=== PATIENT | female | born 1960 | race Caucasian/White ===

== ENCOUNTER 2019-09-03 21:43 | Emergency (ER) | payer BC, SELFPAY ==
--- NOTE | ~2019-09-03 | XR_ITS ---
EXAMINATION: XR hand RT min 3V INDICATION: Right hand pain TECHNIQUE: Three views of the right hand are obtained. COMPARISON: None available FINDINGS: There is no fracture, dislocation, or subluxation. Bone alignment is normal. There is swell ing and gas in the dorsal soft tissues of the hand overlying the metacarpals. IMPRESSION: 1. Swelling and gas in the dorsal soft tissues overlying the metacarpals. No acute osseous abnormalit y. Reviewed, dictated and finalized at location A. IMPRESSION: 1. Swelling and gas in the dorsal soft tissues overlying the metacarpals. No ac cheesh-na osseous abnormality.
[2019-09-03 21:45] VITALS: BP 143/59; PULSE 110; RESP 16; TEMP 37.5; O2SAT 96
--- NOTE | 2019-09-03 21:51 | ED.WOUNDLAC ---
HPI - Wound/Laceration General Chief Complaint: Wound/Laceration Stated Complaint: dog bite Time Seen by Provider: 09/03/19 21:51 Source: patient and RN notes reviewed Mode of arrival: ambulatory Limitations: no limitations History of Present Illness HPI narrative: A 59 y/o female presents to the ED after being bit on both her hands by her dog at roughly 12 PM this afternoon. She states that she was trying to help her dog up when it bit her multiple times on her MAXIMO hands. She reports rt wrist pain, rt hand pain, and rt hand swelling. She notes that she is unsure of when her last tetanus shot was. She denies any HI, LOC, numbness, or tingling. Dog has been vaccinated and is a domestic dog. Onset (ago): hour(s) (10) Extremity Location: Bilateral: hand Place: home Patient tetanus UTD: No Context: other (dog bit her) Associated symptoms: pain (rt hand and rt wrist) and other (rt hand swelling) Related Data Allergies Allergy/AdvReac Type Severity Reaction Status Date / Time codeine Allergy Unknown NERVOUS, Verified 09/03/19 21:49 ITCHY Penicillins Allergy Unknown UNKNOWN Verified 09/03/19 21:49 Review of Systems Review of Systems: Narrative: MUSCULOSKELETAL: Reports rt wrist pain, rt hand pain, and rt hand swelling.. NEUROLOGIC: Denies HI, LOC, numbness, or tingling. All systems reviewed & are unremarkable except as noted in HPI and below PMFSH Past Medical History Medical History (Updated 09/03/19 @ 22:06 by Tristan Castaneda) Anxiety Asthma COPD (chronic obstructive pulmonary disease) Depression GERD (gastroesophageal reflux disease) H/O: HTN (hypertension) PTSD (post-traumatic stress disorder) Surgical History Surgical History (Updated 09/03/19 @ 22:06 by Tristan Castaneda) Previous section x2. Social History Social History (Updated 09/03/19 @ 22:06 by Tristan Castaneda) Smoking packs per day: 1 Smoking cigarettes per day: 20.0 Smoking status: Current every day smoker Tobacco type: cigarettes Gender identity (if verbalized by the patient): Female Exam Narrative: Exam Narrative: GENERAL: Well-appearing, well-nourished, and in no acute distress. HEAD: Normocephalic, atraumatic. EYES: PERRLA and EOMI. ENT: Nares clear, no rhinorrhea or epistaxis. Mucous membranes moist. NECK: Supple. CHEST: Clear to auscultation. No respiratory distress. HEART: Regular rate and rhythm. No murmur heard. Normal peripheral pulses. Radial pulse 2+. ABDOMEN: Soft, nontender, nondistended, normal active bowel sounds. EXTREMITIES: Normal range of motion. Mild edema, dorsum of the right hand. Scattered puncture wounds to the anterior and posterior aspects of the rt palm. 3 puncture wounds to lt thumb. No lacerations. Intact sensation m/u/r nerve distribution. SKIN: Warm, dry, no rash. NEURO: No focal deficits. Alert and oriented X3. Course Course Emergency Course: Patient presented to the emergency department for evaluation of a dog bite. Dog bite occurred approximately at noon. At the time of presentation, patient is neurovascularly intact. Mild edema, erythema, scattered puncture wounds to the dorsal aspect of the right hand, 2 puncture wounds to the left thumb. Imaging without acute osseous abnormality. Patient tetanus was updated, she has an allergy to penicillin and was given doxycycline due to her penicillin allergy. No signs of abscess or cellulitis. Wounds were cleaned, dressed. No need for sutures here to limit infection, no large lacerations. Pt then discharged home. Vital Signs Vital signs: Vital Signs Temperature 37.5 C 09/03/19 21:45 Pulse Rate 110 H 09/03/19 21:45 Respiratory Rate 16 09/03/19 21:45 Blood Pressure 143/59 H 09/03/19 21:45 Pulse Oximetry 96 09/03/19 21:45 Temperature 37.5 C 09/03/19 21:45 Pulse Rate 110 H 09/03/19 21:45 Respiratory Rate 16 09/03/19 21:45 Blood Pressure 143/59 H 09/03/19 21:45 Pulse Oximetry 96 09/03/19 21:45 Discharge Plan Discharge Clinical
[2019-09-03] MEDS: DOXYCYCLINE HYCLATE 100 MG TABLET PO (22:07)
[2019-09-03] MEDS: TETANUS,DIPHTHERIA,AC PERTUSSIS ADULT 0.5 ML (ADACEL) IM (22:08)
[2019-09-03 22:20] VITALS: BP 135/88; PULSE 98; RESP 18; O2SAT 98
== END 2019-09-03 22:24 | disposition home or self-care (01) ==
PROVIDERS: Emergency Provider Emergency Medicine; PCP Family Medicine
DX: S61.451A Open bite of right hand, initial encounter (principal); S61.452A Open bite of left hand, initial encounter; Z23 Encounter for immunization; J44.9 Chronic obstructive pulmonary disease, unspecified; I10 Essential (primary) hypertension; F17.210 Nicotine dependence, cigarettes, uncomplicated; W54.0XXA Bitten by dog, initial encounter
CPT/HCPCS: 73130; 90471; 90715; 99283; A9270

== ENCOUNTER 2020-09-09 08:01 | Outpatient (CLI) | payer BC, SELFPAY ==
--- NOTE | ~2020-09-09 | MM_ITS ---
EXAMINATION: MM screening keyanna BI w tiffani HISTORY: Screening mammogram TECHNIQUE: Craniocaudal and mediolateral oblique 3-D tomosynthesis images were obtained and synthetic 2-D images were generated. CAD analysis was submitted and interpreted. COMPARISON: 04/05/2019 BREAST PARENCHYMAL COMPOSITION: The breasts are heterogeneously dense, which may obscure small masses . FINDINGS: There is no evidence of suspicious mass, calcification, or architectural distortion to sugg est malignancy in either breast. There has been no suspicious interval change. IMPRESSION: 1. No mammographic evidence of malignancy. 2. Recommend routine screening mammography in one year. BI-RADS Category 1: Negative Reviewed, dictated and finalized at location A.
== END 2020-09-09 08:02 | disposition home or self-care (01) ==
PROVIDERS: PCP Family Medicine; Visit Provider Family Medicine
DX: Z12.31 Encounter for screening mammogram for malignant neoplasm of breast (principal)
CPT/HCPCS: 77063; 77067

== ENCOUNTER 2020-09-27 08:11 | Outpatient (CLI) | payer BC, SELFPAY | END 2020-09-27 08:12 | disposition home or self-care (01) | LOC: ANHCOVIDVC 08:11 | PROVIDERS: PCP Family Medicine | DX: Z23 Encounter for immunization (principal) | CPT/HCPCS: 0001A; 91300 ==

== ENCOUNTER 2020-10-18 08:06 | Outpatient (CLI) | payer BC, SELFPAY | END 2020-10-18 08:07 | LOC: ANHCOVIDVC 08:06 | PROVIDERS: PCP Family Medicine | DX: Z23 Encounter for immunization (principal) | CPT/HCPCS: 0002A; 91300 ==

== ENCOUNTER 2020-10-26 09:21 | Outpatient (CLI) | payer BC, SELFPAY ==
--- NOTE | ~2020-10-26 | XR_ITS ---
EXAMINATION: XR shoulder RT min 2V DATE: 10/26/2020 09:48 INDICATION: Right shoulder pain. TECHNIQUE: 4 views of right shoulder were obtained. COMPARISON: Chest 2 views 04/24/2018 FINDINGS: Bone alignment is normal. There is a healing fracture of distal clavicle in near-anatomic a lignment. The glenohumeral joint is normal. There is mild osteoarthritis of acromioclavicular joint. There is a staple line in right lung. IMPRESSION: 1. Healing fracture of distal clavicle in near-anatomic alignment. 2. Mild osteoarthritis of acromioclavicular joint. Reviewed, dictated and finalized at location B.
== END 2020-10-26 09:22 | disposition home or self-care (01) ==
LOC: ANHIMG 09:27
PROVIDERS: PCP Family Medicine; Visit Provider Physician Assistant
DX: S42.001A Fracture of unspecified part of right clavicle, initial encounter for closed fracture (principal); M19.011 Primary osteoarthritis, right shoulder
CPT/HCPCS: 73030

== ENCOUNTER 2020-11-01 13:18 | Outpatient (CLI) | payer BC, SELFPAY ==
--- NOTE | ~2020-11-01 | CT_ITS ---
EXAMINATION: CT diagnostic chest wo con DATE: 11/01/2020 13:53 INDICATION: Lung cancer TECHNIQUE: Computed tomography (CT) of the chest was performed without intravenous contrast. The dose -length product (DLP) was 125.54 mGy-cm. Automated exposure control and iterative reconstruction tech nique were employed. COMPARISON: 06/05/2019, 02/25/2019 FINDINGS: There are surgical changes of right partial pneumonectomy. Mild emphysema is noted. The raheel gs are free of acute opacities. There is no pleural effusion or pneumothorax. No pathologically enlar ged thoracic lymph nodes are identified. The heart size is normal. Calcified coronary artery atherosc lerosis is noted. There is moderate thoracic spondylosis. IMPRESSION: 1. Stable changes of right partial pneumonectomy without suspicious interval change. Reviewed, dictated and finalized at location A. IMPRESSION: 1. Stable changes of right partial pneumonectomy without suspicious interval ch kyle.
== END 2020-11-01 13:19 | disposition home or self-care (01) ==
PROVIDERS: PCP Family Medicine; Visit Provider Physician Assistant
DX: Z85.118 Personal history of other malignant neoplasm of bronchus and lung (principal)
CPT/HCPCS: 71250

== ENCOUNTER 2021-07-17 01:11 | Day surgery (SDC) | payer BC, SELFPAY ==
[2021-07-10 15:24] VITALS: BMI 21.3
[2021-07-17 08:12] VITALS: BP 141/65; PULSE 84; RESP 18; TEMP 36.2; O2SAT 99; BMI 20.9
[2021-07-17] MEDS: LACTATED RINGERS 1,000 ML 150 ML IV CONT (08:21)
--- NOTE | 2021-07-17 08:37 | WPDANESEPPF ---
Anes - Initial Pre Proc Eval Procedure: Operation Date: 07/17/21 09:00 Proposed Procedures p Screening Colonoscopy - Trevin Sifuentes MD Date/Time: 07/17/21 08:37 Surgeon: Trevin Sifuentes MD Pre Op Diagnosis: neoplasm screening Patient Data Age: 61 Gender: F Height: 1.6 m Weight: 53.5 kg Last Vital Signs Temp 36.2 C L 07/17/21 08:12 Pulse 84 07/17/21 08:12 Resp 18 07/17/21 08:12 BP 141/65 H 07/17/21 08:12 Pulse Ox 99 07/17/21 08:12 Allergies Allergy/AdvReac Type Severity Reaction Status Date / Time codeine Allergy Unknown NERVOUS, Verified 07/17/21 08:11 ITCHY Penicillins Allergy Unknown UNKNOWN Verified 07/17/21 08:11 Home Medications Medication Instructions Recorded Confirmed Type atorvastatin 40 mg PO DAILY 07/10/21 07/10/21 History odcqxsoowxh-dkhokvagk-umlbayya 1 inh INHALATION DAILY 07/10/21 07/10/21 History [Trelegy Ellipta] hydroxyzine pamoate 100 mg PO HS 07/10/21 07/10/21 History lisinopril 10 mg PO DAILY 07/10/21 07/10/21 History montelukast 10 mg PO DAILY 07/10/21 07/10/21 History sertraline 200 mg PO DAILY 07/10/21 07/10/21 History trazodone 1 mg PO HS 07/10/21 07/10/21 History Patient hx anesthesia problems: none Family hx anesthesia problems: none Results Review: All pre-operative results and documents have been reviewed as part of the pre-operative evaluation. [facility] Past Medical History Medical History Anxiety Asthma COPD (chronic obstructive pulmonary disease) Depression GERD (gastroesophageal reflux disease) H/O: HTN (hypertension) PTSD (post-traumatic stress disorder) Surgical History Surgical History Previous section x2. Social History Social History Smoking packs per day: 1 Smoking cigarettes per day: 20.0 Years smoked: 1 Smoking pack-years: 1.00 Smoking status: Current every day smoker Tobacco type: cigarettes Additional smoking assessment comments: previously smoked more, but has cut back Alcohol intake: current Drinks per week: 10 Alcohol use details: some week no alcohol Substance use: never Substance use type: does not use Living arrangements: alone Gender identity (if verbalized by the patient): Female Spiritual care concerns: No Anes - Eval Final PreProcedure Day of Procedure 07/17/21 08:37 Patient weight: normal Heart: regular rate and rhythm Lungs: decreased breath sounds Airway: Mallampati scale class II Neurological: alert and oriented Last oral intake: >/= 8 hours ASA classification: IV Emergent: no Anesthetic plan: proceed Anesthesia type and monitoring: general GIVS and standard monitoring Results Review: All pre-operative results and documents have been reviewed as part of the pre-operative evaluation. Informed Consent: The patient's anesthetic plan and its attendant risks and benefits were discussed with the patient/family/POA. Questions were solicited and answers provided to the satisfaction of the patient/family/POA.
--- NOTE | 2021-07-17 08:41 | PM.HPGS ---
History of Present Illness History of Present Illness Consent: Risks, benefits, and alternatives have been discussed and questions answered. Patient agrees to proceed with procedure. Chief complaint: neoplasm screening Narrative: Ashley Wilde is a 61 year old female here for screening colonoscopy, last one over 5 years ago. Review of Systems Constitutional: Constitutional: Denies headache(s) and Denies weakness Eyes: Eyes: Denies blurry vision ENT: Reports Normal hearing present, Denies headache(s) and Denies neck pain Cardiovascular: Cardiovascular: Denies chest pain and Denies dyspnea Respiratory: Respiratory: Denies dyspnea Gastrointestinal: Gastrointestinal: Reports no additional gastrointestinal complaints Genitourinary: Genitourinary: Denies dysuria Musculoskeletal: Musculoskeletal: Denies neck pain Integumentary/Breasts: Skin/Breast: Denies dry skin Neurologic: Reports Normal hearing present, Denies headache(s) and Denies weakness Psychiatric: Psychiatric: Denies anxiety Endocrine: Endocrine: Denies change in body appearance Hematologic/Lymphatic: Hematologic/Lymphatic: Denies easy bleeding Allergic/Immunologic: Allergic/Immunologic: Denies urticaria PMFSH Past Medical History Medical History (Updated 07/17/21 @ 08:42 by Trevin Sifuentes MD) Anxiety Asthma Colon cancer screening COPD (chronic obstructive pulmonary disease) Depression GERD (gastroesophageal reflux disease) H/O: HTN (hypertension) PTSD (post-traumatic stress disorder) Surgical History Surgical History Previous section x2. Social History Social History Smoking packs per day: 1 Smoking cigarettes per day: 20.0 Years smoked: 1 Smoking pack-years: 1.00 Smoking status: Current every day smoker Tobacco type: cigarettes Additional smoking assessment comments: previously smoked more, but has cut back Alcohol intake: current Drinks per week: 10 Alcohol use details: some week no alcohol Substance use: never Substance use type: does not use Living arrangements: alone Gender identity (if verbalized by the patient): Female Spiritual care concerns: No Meds Home Medications and Allergies Home Medications Medication Instructions Recorded Confirmed Type atorvastatin 40 mg PO DAILY 07/10/21 07/10/21 History mypzrlnlpht-wdszkvzkt-qloqyumg 1 inh INHALATION DAILY 07/10/21 07/10/21 History [Trelegy Ellipta] hydroxyzine pamoate 100 mg PO HS 07/10/21 07/10/21 History lisinopril 10 mg PO DAILY 07/10/21 07/10/21 History montelukast 10 mg PO DAILY 07/10/21 07/10/21 History sertraline 200 mg PO DAILY 07/10/21 07/10/21 History trazodone 1 mg PO HS 07/10/21 07/10/21 History Allergies Allergy/AdvReac Type Severity Reaction Status Date / Time codeine Allergy Unknown NERVOUS, Verified 07/17/21 08:11 ITCHY Penicillins Allergy Unknown UNKNOWN Verified 07/17/21 08:11 Vital Signs Vital Signs - 24 hr 07/17/21 08:12 Temperature 97.2 F L Pulse Rate 84 Respiratory Rate 18 Blood Pressure 141/65 H Pulse Oximetry 99 Exam Const: General: comfortable and no acute distress HENMT: General nose exam: Normal nares present Eyes: General: appearance normal, both eyes and all related structures Neck: Neck: no JVD Resp: Auscultation: clear to auscultation bilaterally Cardio: Rate: regular rate Rhythm: regular rhythm GI: Inspection: non-distended GI Palp: Yes Soft to palpation Skin: General skin exam: normal color Neuro: General: gait normal Speech: normal speech Extrem: General: normal to inspection Psych: Mental Status: mental status grossly normal Assessment and Plan Assessment and plan (1) Colon cancer screening: Code(s): Z12.11 - Encounter for screening for malignant neoplasm of colon Status: Acute Assessment and Plan:
[2021-07-17 09:03] VITALS: BP 84/60; PULSE 71; RESP 17; O2SAT 98
[2021-07-17 09:13] VITALS: BP 102/68; PULSE 71; RESP 18; O2SAT 99
[2021-07-17 09:23] VITALS: BP 107/94; PULSE 63; RESP 21; O2SAT 99
== END 2021-07-17 09:35 | disposition home or self-care (01) ==
PROVIDERS: PCP Family Medicine; Visit Provider Internal Medicine Gastroenterology
PROC: 0DJD8ZZ Inspection of Lower Intestinal Tract, Via Natural or Artificial Opening Endoscopic (ICD-10-PCS; CPT 45378; principal; 2021-07-17 09:00)
DX: Z12.11 Encounter for screening for malignant neoplasm of colon (principal); K57.30 Diverticulosis of large intestine without perforation or abscess without bleeding; J45.909 Unspecified asthma, uncomplicated; J44.9 Chronic obstructive pulmonary disease, unspecified; F41.8 Other specified anxiety disorders; K21.9 Gastro-esophageal reflux disease without esophagitis; I10 Essential (primary) hypertension; F43.10 Post-traumatic stress disorder, unspecified; F17.210 Nicotine dependence, cigarettes, uncomplicated
CPT/HCPCS: 45378; J2704; J7120

== ENCOUNTER 2022-05-02 15:46 | Outpatient (CLI) | payer BC, SELFPAY ==
--- NOTE | ~2022-05-02 | CT_ITS ---
EXAMINATION: CT diagnostic chest wo con DATE: 05/02/2022 16:05 INDICATION: Personal history of malignant lung neoplasm. Partial right pneumonectomy 4 years ago. Smo ker. History of COPD. TECHNIQUE: Computed tomography (CT) of the chest was performed without intravenous contrast. Automate d exposure control and iterative reconstruction technique were employed. Exam dose: 129.31 mGy-cm to alhaji exam DLP. COMPARISON: 11/01/2020 CT chest FINDINGS: Status post right partial pneumonectomy. There are moderate emphysematous changes of the lungs. No pulmonary infiltrate or consolidation or interval pulmonary mass lesion is noted. Normal heart size. There is coronary artery calcification. No pericardial effusion. There is thoracic aortic and great vessel calcification. No thoracic aortic aneurysm. No hilar or mediastinal mass lesion or lymphadenopathy is detected. No pleural effusion. Normal morphology of the adrenal glands. No suspicious osteolytic or osteoblastic lesions. IMPRESSION: Status post right partial pneumonectomy Moderate emphysematous changes No significant change since 11/02/2019 Reviewed, dictated and finalized at Location A. Reviewed, dictated and finalized at location B. [employer]
== END 2022-05-02 15:47 | disposition home or self-care (01) ==
PROVIDERS: PCP Family Medicine; Visit Provider Physician Assistant
DX: Z85.118 Personal history of other malignant neoplasm of bronchus and lung (principal); Z98.890 Other specified postprocedural states; J43.9 Emphysema, unspecified
CPT/HCPCS: 71250

== ENCOUNTER 2022-06-26 15:39 | Outpatient (CLI) | payer BC, SELFPAY ==
--- NOTE | ~2022-06-26 | MM_ITS ---
EXAMINATION: MM screening keyanna BI w tiffani HISTORY: Screening mammogram TECHNIQUE: Craniocaudal and mediolateral oblique 3-D tomosynthesis images were obtained and synthetic 2-D images were generated. CAD analysis was submitted and interpreted. COMPARISON: 09/09/2020, 05/06/2019 bilateral screening mammogram examinations BREAST PARENCHYMAL COMPOSITION: The breasts are heterogeneously dense, which may obscure small masses . FINDINGS: There is no evidence of suspicious mass, calcification, or architectural distortion to sugg est malignancy in either breast. There has been no suspicious interval change. IMPRESSION: 1. No mammographic evidence of malignancy. 2. Recommend routine screening mammography in one year. BI-RADS Category 1: Negative Reviewed, dictated and finalized at location A. [employer]
== END 2022-06-26 15:40 | disposition home or self-care (01) ==
PROVIDERS: PCP Family Medicine; Visit Provider Physician Assistant
DX: Z12.31 Encounter for screening mammogram for malignant neoplasm of breast (principal)
CPT/HCPCS: 77063; 77067

== ENCOUNTER 2023-10-03 12:59 | Outpatient (CLI) | payer OTHER, SELFPAY ==
--- NOTE | ~2023-10-03 | CT_ITS ---
CT Scan of the Chest without Contrast: Clinical Indication: COPD, history of lung cancer Technique: Contiguous sections were acquired throughout the chest without intravenous contrast. Dose reduction technique was used on this scan by utilizing automated exposure control and iterative recon struction technique. The dose-length product (DLP) was 141.28 mGy-cm. COMPARISON: 05/02/2022 Findings: There is no evidence of any significant mediastinal, hilar or axillary lymphadenopathy. The mediastin al soft tissues appear normal. There is no evidence of pleural or pericardial effusion. Mild emphysema present. Status post right lower lobectomy. No evidence for recurrent malignancy. No s uspicious pulmonary nodule. Stable subcentimeter fissural nodule the left lung, likely benign. Images through the upper abdomen reveal no abnormalities. Stable mild compression deformities in the midthoracic spine. Impression: No evidence of recurrent malignancy or metastatic disease. Mild emphysema. Status post right lower lobectomy. Reviewed, dictated and finalized at location . Impression: No evidence of recurrent malignancy or metastatic disease. Mild emphysema. Status post right lower lobectomy.
== END 2023-10-03 13:00 | disposition home or self-care (01) ==
PROVIDERS: PCP Family Medicine; Visit Provider Family Medicine
DX: J44.9 Chronic obstructive pulmonary disease, unspecified (principal); Z85.118 Personal history of other malignant neoplasm of bronchus and lung; Z98.890 Other specified postprocedural states
CPT/HCPCS: 71250

== ENCOUNTER 2024-06-11 11:28 | Emergency (ER) | payer MEDICARE, SELFPAY ==
[2024-06-11 11:36] VITALS: BP 150/69; PULSE 92; RESP 20; TEMP 37.3; O2SAT 95
--- NOTE | 2024-06-11 12:33 | ED_ITS ---
HPI - Eye Problem General Chief complaint: Eye Problems Stated complaint: Left eye Time Seen by Provider: 06/11/24 12:15 Source: patient, RN notes reviewed and old records reviewed Mode of arrival: ambulatory Limitations: no limitations History of Present Illness HPI Narrative: 64 left upper eye lid red lesion along left upper eyelid mid aspect along lash line for the past 3 weeks. Patient reports that she has used warm compresses to area and it is better but has not resolved.Minimal swelling noted of left upper eyelid, no drainage from left eye or no redness of sclera or any drainage from lesion area. Patient reports that her eye feels itchy at time and she states some crusty from lesion noted and states feels like film over left eye at times, no visual changes or any sharp pain to left eye reported. MD chief complaint: other (lesion along external left upper eyelid lash line) Onset (ago): week(s) (3) Location: left eye Severity: moderate Treatments Prior to Arrival: other (warm compress) Related Data Home Medications ?Medication ?Instructions ?Recorded ?Confirmed ?Last Taken ?Type lisinopril 10 mg tablet mg 06/11/24 Unknown History Allergies Allergy/AdvReac Type Severity Reaction Status Date / Time codeine Allergy Unknown NERVOUS, Verified 06/11/24 11:32 ITCHY Penicillins Allergy Unknown UNKNOWN Verified 06/11/24 11:32 Review of Systems Review of Systems: CONSTITUTIONAL: Denies fever, chills, or sweats. EYES: Denies visual changes. Reports small red raised lesion to left middle upper eyelid some with irritation and crustiness to area with itching for 3 weeks duration, no visual changes or sharp pain ENT: Denies rhinorrhea, congestion, sore throat, or otalgia. CARDIOVASCULAR: Denies chest pain, palpitations, or edema. RESPIRATORY: Denies cough or dyspnea. SKIN: Denies rash or itching. NEUROLOGIC: Denies headache All systems reviewed & are unremarkable except as noted in HPI and below PMFSH Past Medical History Medical History Major depressive disorder in partial remission Cigarette nicotine dependence with nicotine-induced disorder Pure hypercholesterolemia, unspecified Essential (primary) hypertension Personal history of lung cancer PTSD (post-traumatic stress disorder) Anxiety Depression GERD (gastroesophageal reflux disease) COPD (chronic obstructive pulmonary disease) Surgical History Surgical History History of tonsillectomy 1961 History of breast surgery Cyst removal from left breast 1997 History of lobectomy of lung 04/2018 Previous section x2. Social History Social History Smoking status: Current every day smoker Tobacco type: cigarettes Additional smoking assessment comments: previously smoked more, but has cut back Alcohol intake: current Drinks per week: 10 Alcohol use details: some week no alcohol Substance use: never Substance use type: does not use Do You Feel Safe in your Home?: Yes Lack of Food: Never True Current Housing: I Have Housing Concerned About Future Housing: No Difficulty Paying Gas/Electric Bills: No Difficulty Paying for Meds: No Education: High School Diploma/GED Living arrangements: alone Gender identity (if verbalized by the patient): Female Spiritual care concerns: No Comments At time of signature, agree with nursing past medical, surgical, social and family history. There is no relevant family history pertinent to the presenting complaint Exam Narrative: GENERAL: Well-appearing, well-nourished, and in no acute distress. HEAD: Normocephalic, atraumatic. EYES: PERRLA and EOMI. Right upper and lower eyelids unremarkable. No periorbital cellulitis noted. Small raised red lesion mid upper eyelid along lash area with no drainage noted, minimal swelling to uppeer eyelid, no redness to sclera or conjunctivae. Patient reports some crusting from lesion and itchy no visual changes or any drainage or pain from eye itself. ENT: Nares clear, no rhinorrhea or epistaxis. Mucous membranes moist. NECK: Supple. no lymphadenopathy CHEST: Clear to auscultation. No respiratory distress.SAO2 95% on room air HEART: Regular rate and rhythm. No murmur heard. Normal peripheral pulses. SKIN: Warm, dry, no rash. NEURO: No focal deficits. Alert and oriented x3. Course Course Emergency Course: Patient is aware of diagnosis, understands and agrees to treatment plan. Anticipatory guidance given. Patient agrees to follow-up as directed and is aware of reasons to seek care at the emergency department. Portions of this record may have been created with voice recognition software Level of Care: Express Care Visit Vital Signs Vital signs: Vital Signs Temperature 37.3 C 06/11/24 11:36 Pulse Rate 92 06/11/24 11:36 Respiratory Rate 20 06/11/24 11:36 Blood Pressure 150/69 H 06/11/24 11:36 Pulse Oximetry 95 06/11/24 11:36 Oxygen Delivery Room Air 06/11/24 11:36 Temperature 37.3 C 06/11/24 11:36 Pulse Rate 92 06/11/24 11:36 Respiratory Rate 20 06/11/24 11:36 Blood Pressure 150/69 H 06/11/24 11:36 Pulse Oximetry 95 06/11/24 11:36 Oxygen Delivery Room Air 06/11/24 11:36 Reviewed MDM - Eye Problem MDM Narrative Medical decision making narrative: Consideration of the following conditions may be warranted for the presenting problem, they are not final diagnoses: Bacterial conjunctivitis, allergic conjunctivitis, viral conjunctivitis, foreign body, blepharitis, chalazion, hordeolum, corneal abrasion.? Exam findings show no acute concerns or changes; patient is non-toxic appearing and is in no distress.? Patient is appropriate for outpatient treatment and follow-up. Differential Diagnosis Differential diagnosis: Likely other (hordeolum left upper eyelid, chalazion left upper eyelid, swelling left upper eyelid) Medical Records Attestation: I reviewed the patient's medical records. Critical Care Time Critical Care Time Critical Care Time: No Discharge Plan Discharge Clinical Impression: Hordeolum external Qualifiers: Laterality: left Eyelid: upper Qualified Code(s): H00.014 - Hordeolum externum left upper eyelid Patient Disposition: Home, Self-Care Condition: Stable Instructions: Vasiliy Sims (ED) Additional Instructions: Cold compresses to the eyes for comfort May need warm compresses to remove debris in the morning When cleaning the eyes use a washcloth in one direction then change washcloths or use a cotton ball in one direction and then a new cotton balls Eye ointment as directed--may be more soothing if left in the refrigerator Do not share medicine--do not touch the eye with the medicine Tylenol or ibuprofen for pain Avoid screen time--television, computer, tablet or phone. Also no reading or driving Follow-up with PCP or duplicating machine mechanic as directed if no improvement 5 days If your symptoms persist, change or worsen significantly before you can contact your personal physician then please, without delay, go to the emergency department for further evaluation. Follow-up with PCP in 7-10 days or sooner if needed Follow up with PCP soon in regards to your blood pressure which is elevated above threshold for referral. Blood pressure above 120/80 may indicate pre- hypertension. 150/69 Patient Language: Burkinan Prescriptions: New erythromycin 5 mg/gram (0.5 %) ointment 0.5 inch LEFT EYE TID Qty: 3.5 0RF No Action lisinopril 10 mg tablet Airsupra 90-80 mcg/actuation HFA aerosol inhaler 2 inh inhalation ONCE Qty: 10.7 0RF Rx Instructions: as a single dose; may repeat up to 6 doses per day (12 inhalations) lisinopril 20 mg tablet 20 mg PO DAILY Qty: 90 1RF hydroxyzine pamoate 50 mg capsule See Rx Instructions .ROUTE .COMPLEX Qty: 180 1RF Dose Instruction: TAKE 2 CAPSULES BY MOUTH AT BEDTIME Rx Instructions: TAKE 2 CAPSULES BY MOUTH AT BEDTIME trazodone 150 mg tablet 150 mg PO HS Qty: 90 1RF atorvastatin 40 mg tablet 40 mg PO DAILY Qty: 90 1RF montelukast 10 mg tablet See Rx Instructions .ROUTE .COMPLEX Qty: 90 1RF Dose Instruction: TAKE 1 TABLET BY MOUTH EVERY DAY Rx Instructions: TAKE 1 TABLET BY MOUTH EVERY DAY sertraline 100 mg tablet 200 mg PO DAILY Qty: 180 1RF Trelegy Ellipta 100-62.5-25 mcg blister with device 1 inh INHALATION DAILY Qty: 60 6RF Follow-up/Referrals: Dylan Mcwilliams MD [Primary Care Provider] - Time of Disposition: 12:43 Quality [place] Coma Scale Eyes: Open Verbal: Oriented and Alert Motor: Follows Commands [place] Coma Total Score: 15
== END 2024-06-11 12:50 | disposition home or self-care (01) ==
PROVIDERS: Emergency Provider Registered Nurse; PCP Family Medicine
DX: H00.014 Hordeolum externum left upper eyelid (principal); E78.00 Pure hypercholesterolemia, unspecified; I10 Essential (primary) hypertension; Z85.118 Personal history of other malignant neoplasm of bronchus and lung; F41.8 Other specified anxiety disorders; K21.9 Gastro-esophageal reflux disease without esophagitis; J44.9 Chronic obstructive pulmonary disease, unspecified; F17.210 Nicotine dependence, cigarettes, uncomplicated
CPT/HCPCS: 99213; G0463

== ENCOUNTER 2025-04-20 07:55 | Outpatient (CLI) | payer MEDICARE, SELFPAY ==
--- NOTE | ~2025-04-20 | CT_ITS ---
Exam: CT chest without contrast Clinical History: [History of lung cancer. COPD. ] Comparison: [ 10/03/2023] Technique: Multiple axial CT images of the chest without with IV contrast. Sagittal and coronal reformatted images were obtained. FINDINGS: Lungs and pleura: [ No pneumothorax. No pleural effusion. Mild biapical scarring. Mild centrilobular emphysema. Stable postsurgical change.] There are a few small reticular and bandlike opacities in the lower lungs likely scarring. New 4 mm pulmonary nodule in the right lower lobe. A follow-up chest CT in 3 month is recommended. Mediastinum and pulmonary eloy: [ No mass or adenopathy.] Axillary/intramammary and supraclavicular: [ No mass or adenopathy.] Heart and great vessels: [ Normal heart size.[ [ Small to moderate-sized pericardial effusion.] [ No aneurysm.] Moderate atherosclerotic disease in the thoracic aorta. There are coronary artery calcifications. Chest Wall: [ Unremarkable.] Upper Abdomen: [ No significant findings.] Osseous structures: [ Multilevel degenerative change in the visualized spine.] Several new right-sided rib fractures. Correlate clinically. New mildly displaced fractures of the right T7 and T8 transverse processes. Additional findings: [ None of significance.] IMPRESSION: 1. New 4 mm pulmonary nodule in the right lower lobe. A follow-up chest CT in 3 months is recommended. 2. No adenopathy in the chest. 3. Mild centrilobular emphysema. 4. Several new right-sided rib fractures. Correlate clinically. 5. New mildly displaced fractures of the right T7 and T8 transverse processes. Reviewed, dictated and finalized at location Q. S TRAINING MANAGER
--- OUTSIDE RECORDS SUMMARY | 2025-04-20 08:04 | XMS_ITS | Clinical Summary ---
Author Organization [facility] Address [address] [place] [address] Care Team Providers Care [place] Name Role Phone Dylan Mcwilliams MD Primary Care Provider [phone] Allergies Active Allergy Reactions Criticality Noted Date Comments Codeine Itching Low 12/11/2023 Penicillins Other (See comments) Low 12/11/2023 unknown Medications atorvastatin (LIPITOR) 40 mg tablet Take 1 tablet (40 mg total) by mouth daily 4 Active Trelegy Ellipta 100-62.5-25 mcg inhaler 1 puff daily 4 Active hydrOXYzine (VISTARIL) 50 mg capsule Take 2 capsules (100 mg total) by mouth nightly 4 Active lisinopriL (PRINIVIL,ZESTR IL) 10 mg tablet Take 1 tablet (10 mg total) by mouth daily 4 Active montelukast (SINGULAIR) 10 mg tablet Take 1 tablet (10 mg total) by mouth daily 4 Active sertraline (ZOLOFT) 100 mg tablet Take 2 tablets (200 mg total) by mouth daily 4 Active traZODone (DESYREL) 150 mg tablet Take 1 tablet (150 mg total) by mouth nightly at bedtime 4 Active albuterol 2.5 mg /3 mL (0.083 %) nebulizer solution Take 3 mL (2.5 mg total) by nebulization every 4 (four) hours as needed for wheezing 0 5 Active ondansetron (ZOFRAN) 4 mg tablet Take 1 tablet (4 mg total) by mouth every 4 (four) hours as needed for nausea or vomiting 0 5 Active senna (SENOKOT) 8.6 mg tablet Take 2 tablets by mouth 2 (two) times a day 0 5 03/10/20 26 Active sodium chloride (OCEAN) 0.65 % nasal spray Administer 2 sprays into each nostril every 2 (two) hours as needed for congestion 0 5 03/10/20 26 Active methocarbamoL (ROBAXIN) 750 mg tablet Take 1 tablet (750 mg total) by mouth 2 (two) times a day 0 5 Active acetaminophen 500 mg capsule Take 2 capsules (1,000 mg total) by mouth every 6 (six) hours 0 5 Active aspirin 81 mg enteric coated tablet Take 1 tablet (81 mg total) by mouth daily 0 5 03/11/20 26 Active camphor-menthoL (SARNA) lotion Apply topically every 6 (six) hours as needed for itching 0 5 Active cholecalciferol (VITAMIN D-3) 3,000 unit tablet Take 2 tablets (6,000 Units total) by mouth daily 0 5 Active folic acid (FOLVITE) 1 mg tablet Take 1 tablet (1 mg total) by mouth daily for 6 doses 0 5 Active multivit furagzoe-swlv-H A-calcium (THERA-M) 9 mg iron-400 mcg tablet Take 1 tablet by mouth daily 0 5 Active polyethylene glycol (MIRALAX) 17 gram/dose bulk powderIndicatio ns:constipation Take 17 g by mouth daily 0 5 Active oxyCODONE (ROXICODONE) 5 mg immediate release tabletIndicatio ns:Pain Take 1 tablet (5 mg total) by mouth every 4 (four) hours as needed for pain 16 tablet 5 Active Active Problems Problem Noted Date Diagnosed Date Scalp laceration, initial encounter 03/08/2025 Assessment & Plan (03/10/2025 12:25 PM CDT): -stapled on 03/03, okay to take kristian off in 5-7 days. -03/10 removed 6 kristian, pit uploaded. Discharge planning issues 03/05/2025 Assessment & Plan (03/11/2025 8:50 AM CDT): 03/05 plan to transfer from SICU to floor, continue to work with therapy, recommended for IPR, can start working for discharge facility chest tube removed, vanegas to be removed. Ready for discharge 03/08 03/07 Patient is medically stable for discharge, SW/CM updated. Discharge pending facility acceptance 03/08 pending Standing scoli XR, ADD tomorrow 03/09-03/10 NSGY signed off, Patient is medically stable for discharge, SW/CM updated. Discharge pending insurance authorization Aneurysm 03/05/2025 Assessment & Plan (03/10/2025 12:18 PM CDT): #2 mm right MCA aneurysm CTA (03/03/2025) incidentally found 2 mm right MCA aneurysm - NGSY vascular - no acute intervention The patient should be seen with neurosurgery vascular clinic in 4-6 weeks with no additional scans/tests necessary. Appointment Scheduling: Acute pain 03/05/2025 Assessment & Plan (03/10/2025 12:19 PM CDT): - Fascial Block - Pain following Epidural - continue ELIDIA infusion at 15 ml Q2 hrs (PIB) of bupivacaine w/ bolus dosing 3 mL q30 mins. Discontinued 03/07/2025 ---Acetaminophen 1000 mg PO Q6 --methocarbamol 500 mg PO TID ---Oxycodone 5 mg PO Q3 prn first line for pain. Continue current regimens on discharge. Syncope 03/05/2025 Assessment & Plan (03/05/2025 12:46 PM CDT): - Syncope unlikely most likely collapse 2/2 intoxication Hemodynamically unsupported - Chronic severe stenosis of the right common carotid artery at the Bifurcation With 90% stenosis of the Rt internal carotid artery -50% narrowing of the left common carotid artery. COPD (chronic obstructive pulmonary disease) Assessment & Plan (03/06/2025 1:16 PM CDT): COPD- not on home oxygen since past 6 months due to financial issues. - Baseline oxygen requirement- 6 litres at home (has not been on oxygen at home due to cost) currently at 2L NC - Consult to social work placed -jamie Conner duoNebs q6h PRN Right rib fracture 03/05/2025 Assessment & Plan (03/10/2025 1:15 PM CDT): Right 1st, 2nd, and 4th through 9th rib fractures -Right Hemopneumothorax - 03/04 DC Chest tube - 03/08 on 2L NC, pain controlled Patient will follow up with ACCS team on 03/24/2025 with 2 view chest x-ray. MENDY (acute kidney injury) 03/05/2025 Assessment & Plan (03/10/2025 12:23 PM CDT): MENDY possible obstruction - unable to void - Improving, monitor for post obstruction diuresis - repeat renal panel this AM -03/04 kidney ultrasound - no hydro monitor renal function, electrolytes ,and UOP Replace electrolytes PRN #Oliguria Urinary retention - resolved - 03/04 place Vanegas - attempt void trial 03/07 voiding 03/08 sCr 0.59 from 0/57, Uop 2.4L +1, will consider resolved. Thigh hematoma 03/05/2025 Assessment & Plan (03/10/2025 12:23 PM CDT): Expanding right thigh hematoma Soft tissue hematoma extending along the right gluteal musculature and right posterior lateral thigh, measuring at least up to 15 cm - pressure dressing to be removed 03/04 PM - remains stable - CBC in AM Mult fractures of thoracic spine, closed 025 Assessment & Plan (03/10/2025 12:24 PM CDT): Left transverse process fracture of the C7 vertebral body. T1 in the right transverse processes of T3, T5, T7, and T9. No evidence of acute fracture in the cervical, or lumbar spine. PT and OT Plan [x ] MRI C/T spine wo- narrowing at C3/4,4/5,5/6 [ x] Standing scoli XR when able, pending Outpatient C3-6 ACDF vs PCDF, 4-6 weeks -03/09 NSGY signed off The patient should be seen in Neurosurgery clinic in 4-6 weeks with no additional scans/tests necessary for discussion of surgery. Appointment Scheduling: HLD (hyperlipidemia) 03/05/2025 Assessment & Plan (03/10/2025 12:24 PM CDT): Atorvastatin 40 mg dialy Follow up with previously established provider for ongoing evaluation. Severe malnutrition 03/03/2025 Assessment & Plan (03/10/2025 12:17 PM CDT): RD consult -03/10 ate over 50% meal with ensure, will encourage PO intake with ensure on discharge. Unsteady gait 12/12/2023 Fall, initial encounter 12/11/2023 Assessment & Plan (03/05/2025 12:43 PM CDT): intoxicated and tripped then fell down a flight of stairs and striked her head Injuries: right right hemopneumothorax, nondisplaced rib fractures posterior 1,2, 4, 6-9, and 5, no left rib fractures. Nondisplaced left transverse process fractures of T1, T3, T5, T7, T9. There is a soft tissue right posterior lateral thigh expanding hematoma measuring at least 7.8 x 5.8 x 14.6 cm. No intracranial hemorrhage. Hyponatremia 12/11/2023 Alcohol abuse 12/11/2023 Assessment & Plan (03/05/2025 12:44 PM CDT): Ethanol 165 on admission Reports 15 beers/week Alcohol withdrawal protocol - start Phenobarb 03/04, cont per protocol Folic acid, thiamine, MVI - chemical dependency - completed Encounters Date Type Department Care Team Description 03/24/2025 2:45 PM CDT Office Visit [facility] Acute [facility] [address] [facility] [address] [place] [address] Fall, subsequent encounter (Primary Dx); Closed fracture of multiple ribs of right side with routine healing, subsequent encounter 03/17/2025 Documentation General Surgery Valverde, Srikanth Barry III, MD Wound Check (Pt's PM&R MD Dr. Leger called the office with concerns that her thigh hematoma was getting larger and I called her back ) 03/16/[address] [facility] Medicine Surgery [address] 12th [place] [address] [place] [phone] Mi Terrazas RMA MEDICAL ADVICE 03/03/2025 Telephone [facility] [address] [facility] 4[address] [place] [phone] Ezio Fernandez Scheduling Appointments 03/03/[address] [facility] Medicine Neurosurgery [address] [facility] [address] [place] [address] [place] [phone] Michel Murillo MD 03/02/2025 6:36 PM CDT - 03/11/2025 11:55 AM CDT Hospital Encounter [facility] [address] [place] [address] Bella Mckeon MD [facility], Riccardo Alonso MD PhD Serpe, Evelyn Lomeli MD Fall, initial encounter (Primary Dx); Laceration of scalp without foreign body, initial encounter; Hematoma of scalp, initial encounter; Closed traumatic fracture of ribs of right side with pneumothorax; Closed fracture of transverse process of thoracic vertebra, initial encounter (HCC); Hematoma of right lower leg; Painful respiration [R07.1]; Peripheral nerve catheter present; Acute traumatic pain [G89.11]; Alcohol abuse; Closed fracture of multiple thoracic vertebrae, initial encounter (HCC) Discharge Disposition: Discharge to an IP Rehab facility 03/02/2025 5:57 PM CDT - 03/02/2025 11:59 PM CDT Hospital Encounter [facility] Emergency, Room R Discharge Disposition: Discharge to home or self care from Last 3 Months Immunizations Immunization Administration Dates Next Due Tdap 03/02/2025 Medical History Medical History Date Comments COPD (chronic obstructive pulmonary disease) Cancer (HCC) Social History Tobacco Use Types Packs/Day Years Used Date Smoking Tobacco: Former Cigarettes Comments:Quit 03/02/25 AUDIT-C Answer Date Recorded Q1: How often do you have a drink containing alc ohol? Monthly or less 12/11/2023 Q2: How many drinks containi ng alcohol do you have on a typical day when you are drinking? 5 or 6 12/11/2023 Q3: How often do you have si x or more drinks on one occasion? Monthly 12/11/2023 Hunger Vital Sign Answer Date Recorded Within the past 12 months, y ou worried that your food would run out before you got the money to buy more. Never true 03/24/20 Within the past 12 months, t he food you bought just didn't last and you didn't have money to get more. Never true 03/24/2025 Personal Safety Answer Date Recorded Have you ever been in or are you currently in a harmful physical or emotional relationship or is someone making you feel afraid or unsafe? Denies 03/02/2025 Comments Unknown Sex and Gender Information Value Date Recorded Sex Assigned at Not on file Legal Sex Female 2:39 PM CDT Gender Identity Not on file Sexual Orientation Not on file Last Filed Vital Signs Vital Sign Reading Time Taken Comments Blood Pressure 170/65 03/24/2025 2:36 PM CDT Pulse 73 03/24/2025 2:36 PM CDT Temperature 36.8 C (98.3 F) 03/24/2025 2:36 PM CDT Respiratory Rate 19 03/11/2025 7:45 AM CDT Oxygen Saturation 94% 03/24/2025 2:36 PM CDT Inhaled Oxygen Concentration - - Weight 45.8 kg (100 lb 15.5 oz) 03/03/2025 2:45 AM CDT Height 158.8 cm (5' 2.5) 03/03/2025 8:33 AM CDT Body Mass Index 18.17 03/03/2025 2:45 AM CDT Plan of Treatment Health Maintenance Due Date Last Done Comments Breast Cancer Screening-Mammogram 1959 Cervical Cancer Screening 1959 Colon Cancer Screening-Colonoscopy 1960 Depression Screening 1959 Osteoporosis Screening-Bone Density Scan 1959 Hepatitis B Screening 1977 Zoster Vaccine (1 of 2) 2009 Pneumococcal vaccine 65+ (2 of 2 - PCV) 11/03/2016 11/04/2015, 10/17/2015 Well Visit 65+ 2024 Covid-19 Vaccine (7 2024-2 6 season) 2025 06/13/2023, 11/10/2022, 09/28/2021, Additional history exists Influenza Vaccine (#1) 2025 4, 06/13/2023, 04/20/2022, Additional history exists Fall Risk Assessment 03/10/2026 03/10/2025 DTaP/Tdap/Td Vaccine (3 - Td or Tdap) 03/02/2035 03/02/2025, 09/03/2019 Hepatitis C Screening Completed 03/03/2025 Procedures Procedure Name Priority Date/Time Associated Diagnosis Comments XR CHEST 1 VIEW IP Routine 03/08/2025 7:30 PM CDT XR SCOLIOSIS AP LAT IP Routine 03/08/2025 2 :44 PM CDT EGFR Routine 03/07/2025 9:36 PM CDT DIFFERENTIAL AUTO Routine 03/07/2025 9:3 6 PM CDT BASIC METABOLIC PANEL Routine 03/07/2025 9:36 PM CDT PHOSPHORUS Routine 03/07/2025 9:36 PM CDT MAGNESIUM Routine 03/07/2025 9:36 PM CDT CBC WITH AUTO DIFFERENTIAL Routine 03/07/2025 9:36 PM CDT XR CHEST 1 VIEW IP Routine 03/07/2025 6:43 PM CDT EGFR Routine 03/06/2025 9:51 PM CDT DIFFERENTIAL AUTO Routine 03/06/2025 9:5 1 PM CDT BASIC METABOLIC PANEL Routine 03/06/2025 9:51 PM CDT PHOSPHORUS Routine 03/06/2025 9:51 PM CDT MAGNESIUM Routine 03/06/2025 9:51 PM CDT CBC WITH AUTO DIFFERENTIAL Routine 03/06/2025 9:51 PM CDT XR CHEST 1 VIEW IP Routine 03/06/2025 6:35 PM CDT EGFR Routine 03/05/2025 10:45 PM CDT DIFFERENTIAL AUTO Routine 03/05/2025 10: 45 PM CDT BASIC METABOLIC PANEL Routine 03/05/2025 10:45 PM CDT PHOSPHORUS Routine 03/05/2025 10:45 PM CDT MAGNESIUM Routine 03/05/2025 10:45 PM CDT CBC WITH AUTO DIFFERENTIAL Routine 03/05/2025 10:45 PM CDT XR CHEST 1 VIEW IP Routine 03/05/2025 8:06 PM CDT CBC WITHOUT DIFFERENTIAL Timed 03/05/2025 2:38 PM CDT EGFR STAT 03/05/2025 6:30 AM CDT CBC WITHOUT DIFFERENTIAL STAT 03/05/2025 6:30 AM CDT LIPID PANEL Routine 03/05/2025 6:30 AM CDT MAGNESIUM STAT 03/05/2025 6:30 AM CDT RENAL FUNCTION PANEL STAT 03/05/2025 6:30 AM CDT LEGIONELLA ANTIGEN, URINE Routine 03/05/2025 6:30 AM CDT CRITICAL CARE Routine 03/05/2025 6:21 AM CDT Closed fracture of transverse process of thoracic vertebra, initial encounter (HCC) Acute traumatic pain [G89.11] Alcohol abuse SODIUM, URINE, RANDOM Routine 03/05/2025 1:11 AM CDT OSMOLALITY, URINE Routine 03/05/2025 1:1 1 AM CDT URINALYSIS, MICROSCOPIC ONLY STAT 03/05/2025 12:58 AM CDT URINALYSIS AND REFLEX TO MICROSCOPIC AND CULTURE STAT 03/05/2025 12:58 AM CDT CRITICAL CARE Routine 03/04/2025 9:29 PM CDT Fall, initial encounter XR CHEST 1 VIEW IP Routine 03/04/2025 8:13 PM CDT BASIC METABOLIC PANEL Routine 03/04/2025 7:34 PM CDT EGFR Routine 03/04/2025 7:34 PM CDT DIFFERENTIAL AUTO Routine 03/04/2025 7:3 4 PM CDT PHOSPHORUS Routine 03/04/2025 7:34 PM CDT MAGNESIUM Routine 03/04/2025 7:34 PM CDT CBC WITH AUTO DIFFERENTIAL Routine 03/04/2025 7:34 PM CDT XR CHEST 1 VIEW Timed 03/04/2025 5:19 PM CDT EGFR Timed 03/04/2025 3:33 PM CDT MAGNESIUM Timed 03/04/2025 3:33 PM CDT BASIC METABOLIC PANEL Timed 03/04/2025 3:33 PM CDT XR CHEST 1 VIEW ED Urgent/IP Urgent 03/04/2025 1:56 PM CDT US KIDNEY COMPLETE IP Routine 03/04/2025 8: 50 AM CDT XR CHEST 1 VIEW IP Routine 03/04/2025 8:26 AM CDT CRITICAL CARE Routine 03/04/2025 6:38 AM CDT Closed traumatic fracture of ribs of right side with pneumothorax Hematoma of right lower leg HEPATIC FUNCTION PANEL STAT 03/04/2025 5:43 AM CDT MAGNESIUM STAT 03/04/2025 5:43 AM CDT PHOSPHORUS STAT 03/04/2025 5:43 AM CDT EGFR STAT 03/04/2025 5:43 AM CDT POTASSIUM, WHOLE BLOOD Routine 03/04/2025 5:43 AM CDT BASIC METABOLIC PANEL STAT 03/04/2025 5:43 AM CDT WOUND CARE Routine 03/03/2025 11:54 PM CDT Laceration of scalp without foreign body, initial encounter Hematoma of scalp, initial encounter POCT GLUCOSE DEVICE Routine 03/03/2025 1 1:10 PM CDT XR SPINE THORACIC 3 VIEWS IP Routine 03/03/2025 11:08 PM CDT MRI THORACIC SPINE WO CONTRAST ED 03/03/2025 10:44 PM CDT MRI CERVICAL SPINE WO CONTRAST ED 03/03/2025 10:44 PM CDT EGFR Timed 03/03/2025 7:44 PM CDT DIFFERENTIAL AUTO Routine 03/03/2025 7:4 4 PM CDT CBC WITH AUTO DIFFERENTIAL Routine 03/03/2025 7:44 PM CDT BASIC METABOLIC PANEL Timed 03/03/2025 7:44 PM CDT POCT GLUCOSE DEVICE Routine 03/03/2025 7 :27 PM CDT CRITICAL CARE Routine 03/03/2025 7:19 PM CDT Fall, initial encounter ECG 12-LEAD STAT 03/03/2025 5:23 PM CDT POCT GLUCOSE DEVICE Routine 03/03/2025 3 :20 PM CDT POCT GLUCOSE DEVICE Routine 03/03/2025 1 1:34 AM CDT CRITICAL CARE Routine 03/03/2025 8:26 AM CDT Closed traumatic fracture of ribs of right side with pneumothorax Closed fracture of transverse process of thoracic vertebra, initial encounter (HCC) Hematoma of right lower leg POCT GLUCOSE DEVICE Routine 03/03/2025 7 :10 AM CDT IRON PROFILE W/ IBC STAT 03/03/2025 3 :40 AM CDT FOLATE STAT 03/03/2025 3:40 AM CDT VITAMIN B12 STAT 03/03/2025 3:40 AM CDT EGFR STAT 03/03/2025 3:40 AM CDT PHOSPHORUS STAT 03/03/2025 3:40 AM CDT MAGNESIUM STAT 03/03/2025 3:40 AM CDT BASIC METABOLIC PANEL STAT 03/03/2025 3:40 AM CDT POCT GLUCOSE DEVICE Routine 03/03/2025 3 :38 AM CDT VITAMIN B1 Routine 03/03/2025 3:38 AM CDT HEMOGLOBIN AND HEMATOCRIT Timed 03/03/2025 3:38 AM CDT RPR Routine 03/03/2025 3:38 AM CDT HIV 1/2 ANTIBODY PLUS P24 ANTIGEN Routine 03/03/2025 3:38 AM CDT HEPATITIS C ANTIBODY Routine 03/03/2025 3:38 AM CDT MS CRITICAL CARE ILL/INJURED PATIENT INIT 30-74 MIN Routine 03/03/2025 2:24 AM CDT CTA HEAD NECK W WO CONTRAST ED 03/03/2025 1:43 AM CDT XR CHEST 1 VIEW ED 03/03/2025 12:52 AM CDT ED CHEST TUBE INSERTION Routine 03/03/2025 12:37 AM CDT ED NERVE BLOCK Routine 03/02/2025 11:49 PM CDT POCUS GUIDED NEEDLE PLACEMENT 03/02/2025 11:44 PM CDT HEMOGLOBIN AND HEMATOCRIT STAT 03/02/2025 11:35 PM CDT XR CHEST 1 VIEW ED Urgent/IP Urgent 03/02/2025 10:32 PM CDT CRITICAL RESULT CALLBACK CARDIO CHEM Timed 03/02/2025 8:56 PM CDT CRITICAL RESULT CALLBACK CARDIO CHEM Timed 03/02/2025 8:56 PM CDT B CHECK SAMPLE STAT 03/02/2025 8:56 PM CDT TROPONIN I HIGH-SENSITIVITY 2-HOUR Timed 03/02/2025 8:[address] RECON THORACIC AND LUMBAR SPINE W CONTRAST ED 03/02/2025 8:[address] HEAD AND CERVICAL SPINE WO CONTRAST ED 03/02/2025 8:[address] CHEST ABDOMEN PELVIS W CONTRAST ED 03/02/2025 8:10 PM CDT ECG 12-LEAD STAT 03/02/2025 7:15 PM CDT POCT CREATININE - DEVICE Routine 03/02/2025 6:57 PM CDT EGFR STAT 03/02/2025 6:53 PM CDT DIFFERENTIAL AUTO STAT 03/02/2025 6:5 3 PM CDT ETHANOL STAT 03/02/2025 6:53 PM CDT TYPE AND SCREEN STAT 03/02/2025 6:53 PM CDT TROPONIN I HIGH-SENSITIVITY SERIES (BASELINE, 2HR, 4HR, 6HR) STAT 03/02/2025 6:53 PM CDT APTT STAT 03/02/2025 6:53 PM CDT PROTIME-INR STAT 03/02/2025 6:53 PM CDT LIPASE STAT 03/02/2025 6:53 PM CDT COMPREHENSIVE METABOLIC PANEL STAT 03/02/2025 6:53 PM CDT CBC WITH AUTO DIFFERENTIAL STAT 03/02/2025 6:53 PM CDT MS CRITICAL CARE ILL/INJURED PATIENT INIT 30-74 MIN Routine 03/02/2025 11:55 AM CDT from Last 3 Months Results * XR Chest 1 View (03/08/2025 7:30 PM CDT) Anatomical Region Laterality Modality Body, Chest N/A Digital Radiogra phy 03/09/2025 7:54 AM CDT Impressions 03/09/2025 7:54 AM CDT Comparison is made to prior study of 03/07/2025 at 6:53 PM. In the interval, no change in a small right pleural effusion. There is no pulmonary edema or pneumothorax. Again seen are multiple acute rib fracture deformities on the right surgical changes are also seen within the right midlung. No pulmonary edema. The heart size and mediastinal contour are unchanged. No left pleural effusion. Electronically signed by: Sulaiman Montaño M.D. Narrative 03/09/2025 7:54 AM CDT EXAMINATION: 1 view chest radiograph Procedure Note Sulaiman Montaño MD - 03/09/2025 EXAMINATION: 1 view chest radiograph IMPRESSION: Comparison is made to prior study of 03/07/2025 at 6:53 PM. In the interval, no change in a small right pleural effusion. There is no pulmonary edema or pneumothorax. Again seen are multiple acute rib fracture deformities on the right surgical changes are also seen within the right midlung. No pulmonary edema. The heart size and mediastinal contour are unchanged. No left pleural effusion. Electronically signed by: Sulaiman Montaoñ M.D. Mai Natarajan F[employer]OGRAPHIC PRINTING MACHINIST IMG XR PROCEDURES Final Result * XR Scoliosis Ap and Lateral (03/08/2025 2:44 PM CDT) Anatomical Region Laterality Modality Spine N/A Computed Radiogr aphy 03/08/2025 2:46 PM CDT Impressions 03/08/2025 2:46 PM CDT 1. Mild thoracic levocurvature and lumbar dextrocurvature with moderate anterior sagittal truncal imbalance. 2. Moderate multilevel lumbar degenerative disc disease. Electronically signed by: Chicho Donato M.D. Narrative 03/08/2025 2:46 PM CDT XR SCOLIOSIS AP AND LATERAL HISTORY: Back pain. FINDINGS: AP and lateral upright projections of the spine are obtained and compared with 03/03/2025. There is mild thoracic levocurvature and upper lumbar dextrocurvature. There is no significant listhesis. There is neutral coronal truncal balance and moderate anterior sagittal truncal imbalance. There is no pelvic obliquity. There is unchanged moderate multilevel thoracolumbar degenerative disc disease. Vertebral body heights are within normal limits. Procedure Note Chicho Donato MD - 03/08/2025 XR SCOLIOSIS AP AND LATERAL HISTORY: Back pain. FINDINGS: AP and lateral upright projections of the spine are obtained and compared with 03/03/2025. There is mild thoracic levocurvature and upper lumbar dextrocurvature. There is no significant listhesis. There is neutral coronal truncal balance and moderate anterior sagittal truncal imbalance. There is no pelvic obliquity. There is unchanged moderate multilevel thoracolumbar degenerative disc disease. Vertebral body heights are within normal limits. IMPRESSION: 1. Mild thoracic levocurvature and lumbar dextrocurvature with moderate anterior sagittal truncal imbalance. 2. Moderate multilevel lumbar degenerative disc disease. Electronically signed by: Chicho Donato M.D. Mai Natarajan NP IMG XR PROCEDURES Final Result * eGFR (03/07/2025 9:36 PM CDT) eGFR >90 >=60 mL/min/1. 73 m2 Comment: Interpretive Data Reference Interval Normal >/= 90 mL/min/1.73m2 Mildly decreased* 60 - 89 mL/min/1.73m2 Mildly to moderately decreased 45 - 59 mL/min/1.73m2 Moderately to severely decreased 30 - 44 mL/min/1.73m2 Severely decreased 15 - 29 mL/min/1.73m2 Kidney Failure < 15 mL/min/1.73m2 *Relative to young adult level Estimated glomerular filtration rate is determined by the 2020 CKD-EPI equation recommended by the National [employer] (A Unifying Approach to GFR Estimation: Recommendations of the NKF-ASK Task Force on Reassessing the Inclusion of Race in Diagnosing Kidney Disease, JASN 202). The CKD-EPI equation should not be used for patients with unstable renal function and has not been validated in children and those over 70. Current interpretive data was last reviewed 2021. Blood 03/07/2025 9:36 PM CDT 03/07/2025 11:25 PM CDT us Mai Natarajan [employer]OGRAPHIC PRINTING MACHINIST LAB BLOOD ORDERABLES Fin al Result [facility] Department [place] [address] * (ABNORMAL) Differential, auto (03/07/2025 9:36 PM CDT) Neutrophil abs 6.56(H) 1.50 - 6.50 K/cumm Imm gran abs 0.06 0.00 - 0.10 K/cumm [facility] Lymphocyte abs 2.07 0.80 - 3.30 K/cumm [facility] Monocyte abs 1.28(H) 0.20 - 0.80 K/cumm [facility] Eosinophil abs 0.24 0.00 - 0.50 K/cumm [facility] Basophil abs 0.06 0.00 - 0.10 K/cumm [facility] Neutrophil pct 63.8 % [facility] Comment: Interpretive Data Percent cell count reference ranges are not reported, since discordance with absolute values may lead to misinterpretation of CBC data. Current Interpretive Data was last revised on 2017. Imm gran pct 0.6 % [facility] Comment: Interpretive Data Percent cell count reference ranges are not reported, since discordance with absolute values may lead to misinterpretation of CBC data. Current Interpretive Data was last revised on 2017. Lymphocyte pct 20.2 % [facility] Comment: Interpretive Data Percent cell count reference ranges are not reported, since discordance with absolute values may lead to misinterpretation of CBC data. Current Interpretive Data was last revised on 2017. Monocyte pct 12.5 % [facility] [facility] Comment: Interpretive Data Percent cell count reference ranges are not reported, since discordance with absolute values may lead to misinterpretation of CBC data. Current Interpretive Data was last revised on 2017. Eosinophil pct 2.3 % [facility] Comment: Interpretive Data Percent cell count reference ranges are not reported, since discordance with absolute values may lead to misinterpretation of CBC data. Current Interpretive Data was last revised on 2017. Basophil pct 0.6 % [facility] Comment: Interpretive Data Percent cell count reference ranges are not reported, since discordance with absolute values may lead to misinterpretation of CBC data. Current Interpretive Data was last revised on 2017. Blood 03/07/2025 9:36 PM CDT 03/07/2025 11:26 PM CDT Riccardo Soliz MD PhD LAB BLOOD ORDERAB LES Final Result [facility] [place] [address] * (ABNORMAL) CBC with auto differential (03/07/2025 9:36 PM CDT) WBC 10.27(H) 3.80 - 9.90 K/cumm Hgb 8.4(L) 11.9 - 15.5 g/dL [facility] Hct 25.9(L) 35.6 - 45.5 % [facility] Plt 201 150 - 400 K/cumm [facility] MPV 10.7 9.1 - 12.3 fL [facility] RBC 2.76(L) 3.90 - 5.20 M/cumm [facility] MCV 93.8 81.3 - 96.4 fL [facility] MCH 30.4 27.1 - 33.3 pg [facility] MCHC 32.4 32.3 - 35.7 g/dL [facility] RDW CV 14.1 11.1 - 14.9 % [facility] RDW SD 47.7 35.7 - 48.1 fL [facility] NRBC abs 0.00 0.00 - 0.01 K/cumm [facility] Blood 03/07/2025 9:36 PM CDT 03/07/2025 11:26 PM CDT Riccardo Soliz MD PhD LAB BLOOD ORDERAB LES Final Result Performing Organization Address City/[facility] Co de Phone Number [facility] [employer] [place] [place] [place] [address] * Phosphorus (03/07/2025 9:36 PM CDT) [facility] Phosphorus, pl 2.5 2.3 - 4.5 mg/dL Blood 03/07/2025 9:36 PM CDT 03/07/2025 11:25 PM CDT us Mai Natarajan FLEXOGRAPHIC PRINTING MACHINIST LAB BLOOD ORDERABLES Fin al Result Performing Organization Address [facility] Co de Phone Number [facility] [employer] [place] [place] [place] [address] * Magnesium (03/07/2025 9:36 PM CDT) [facility] Magnesium 1.8 1.4 - 2.5 mg/dL Blood 03/07/2025 9:36 PM CDT 03/07/2025 11:25 PM CDT Mai Natarajan FLEXOGRAPHIC PRINTING MACHINIST LAB BLOOD ORDERABLES Fin al Result Performing Organization Address [facility] [place] [address] * (ABNORMAL) Basic metabolic panel (03/07/2025 9:36 PM CDT) [facility] Sodium 134(L) 135 - 145 mmol/L Potassium, pl 4.0 3.3 - 4.9 mmol/L [facility] Chloride 95(L) 97 - 110 mmol/L [facility] CO2 35(H) 22 - 32 mmol/L [facility] Anion gap 4 2 - 15 mmol/L [facility] BUN 8 6 - 25 mg/dL [facility] Creatinine 0.59(L) 0.60 - 1.10 mg/dL [facility] Glucose 81 70 - 199 mg/dL [facility] Comment: Interpretive Data Fasting glucose >/= 126 mg/dl is diagnostic for diabetes. Fasting is defined as no caloric intake for at least 8 hours. Fasting glucose between 100 mg/dl to 125 mg/dl is diagnostic of prediabetes. In a patient with classic symptoms of hyperglycemia or hyperglycemic crisis, a random glucose >/= 200 mg/dl is diagnostic for diabetes. In the absence of unequivocal hyperglycemia, results should be confirmed by repeat testing. The classification and Diagnosis of Diabetes Diabetes Care 2021; 46: S19-S40. Current interpretive data was last revised 2022. Calcium 8.3(L) 8.5 - 10.3 mg/dL [facility] Blood 03/07/2025 9:36 PM CDT 03/07/2025 11:25 PM CDT us Mai Natarajan NP LAB BLOOD ORDERABLES Fin al Result [facility] Department [place] [address] * XR Chest 1 View (03/07/2025 6:43 PM CDT) Anatomical Region Laterality Modality Body, Chest N/A Computed Radiogr aphy 03/08/2025 10:0 0 AM CDT Impressions 03/08/2025 10:46 AM CDT Comparison dated 03/06/2025 at 6:46 PM. Suture material in the right midlung. Decreased small right pleural effusion with associated mild right basilar atelectasis. No left pulmonary consolidation or left pleural effusion. No definite right pneumothorax. No left pneumothorax. Stable cardiomediastinal silhouette. Dictated by: Dwain Kelly M.D. The radiology attending physician has personally reviewed this study, and had reviewed and/or edited this written report and agrees with it. Electronically signed by: Regina Sanchez M.D. Narrative 03/08/2025 10:46 AM CDT EXAMINATION: 1 view chest radiograph Procedure Note Regina Sanchez MD - 03/08/2025 EXAMINATION: 1 view chest radiograph IMPRESSION: Comparison dated 03/06/2025 at 6:46 PM. Suture material in the right midlung. Decreased small right pleural effusion with associated mild right basilar atelectasis. No left pulmonary consolidation or left pleural effusion. No definite right pneumothorax. No left pneumothorax. Stable cardiomediastinal silhouette. Dictated by: Dwain Kelly M.D. The radiology attending physician has personally reviewed this study, and had reviewed and/or edited this written report and agrees with it. Electronically signed by: Regina Sanchez M.D. Mai Natarajan FLEXOGRAPHIC PRINTING MACHINIST IMG XR PROCEDURES Final Result * eGFR (03/06/2025 9:51 PM CDT) eGFR >90 >=60 mL/min/1. 73 m2 Comment: Interpretive Data Reference Interval Normal >/= 90 mL/min/1.73m2 Mildly decreased* 60 - 89 mL/min/1.73m2 Mildly to moderately decreased 45 - 59 mL/min/1.73m2 Moderately to severely decreased 30 - 44 mL/min/1.73m2 Severely decreased 15 - 29 mL/min/1.73m2 Kidney Failure < 15 mL/min/1.73m2 *Relative to young adult level Estimated glomerular filtration rate is determined by the 2020 CKD-EPI equation recommended by the National Kidney Foundation (A Unifying Approach to GFR Estimation: Recommendations of the NKF-ASK Task Force on Reassessing the Inclusion of Race in Diagnosing Kidney Disease, JASN 202). The CKD-EPI equation should not be used for patients with unstable renal function and has not been validated in children and those over 70. Current interpretive data was last reviewed 2021. Blood 03/06/2025 9:51 PM CDT 03/06/2025 10:55 PM CDT us Mai Natarajan FLEXOGRAPHIC PRINTING MACHINIST LAB BLOOD ORDERABLES Fin al Result [facility] Department [place] [address] * (ABNORMAL) Differential, auto (03/06/2025 9:51 PM CDT) Neutrophil abs 9.63(H) 1.50 - 6.50 K/cumm Imm gran abs 0.09 0.00 - 0.10 K/cumm [facility] Lymphocyte abs 1.42 0.80 - 3.30 K/cumm [facility] Monocyte abs 1.29(H) 0.20 - 0.80 K/cumm [facility] Eosinophil abs 0.20 0.00 - 0.50 K/cumm [facility] Basophil abs 0.06 0.00 - 0.10 K/cumm [facility] Neutrophil pct 75.8 % [facility] Comment: Interpretive Data Percent cell count reference ranges are not reported, since discordance with absolute values may lead to misinterpretation of CBC data. Current Interpretive Data was last revised on 2017. Imm gran pct 0.7 % [facility] Comment: Interpretive Data Percent cell count reference ranges are not reported, since discordance with absolute values may lead to misinterpretation of CBC data. Current Interpretive Data was last revised on 2017. Lymphocyte pct 11.2 % [facility] Comment: Interpretive Data Percent cell count reference ranges are not reported, since discordance with absolute values may lead to misinterpretation of CBC data. Current Interpretive Data was last revised on 2017. Monocyte pct 10.2 % [facility] Comment: Interpretive Data Percent cell count reference ranges are not reported, since discordance with absolute values may lead to misinterpretation of CBC data. Current Interpretive Data was last revised on 2017. Eosinophil pct 1.6 % [facility] Comment: Interpretive Data Percent cell count reference ranges are not reported, since discordance with absolute values may lead to misinterpretation of CBC data. Current Interpretive Data was last revised on 2017. Basophil pct 0.5 % [facility] Comment: Interpretive Data Percent cell count reference ranges are not reported, since discordance with absolute values may lead to misinterpretation of CBC data. Current Interpretive Data was last revised on 2017. Blood 03/06/2025 9:51 PM CDT 03/06/2025 10:55 PM CDT Riccardo Soliz MD PhD LAB BLOOD ORDERAB LES Final Result Performing Organization Address City/[facility]/ZIP Co de Phone Number [facility] Department [place] [address] * (ABNORMAL) CBC with auto differential (03/06/2025 9:51 PM CDT) WBC 12.69(H) 3.80 - 9.90 K/cumm Hgb 7.9(L) 11.9 - 15.5 g/dL [facility] Hct 25.2(L) 35.6 - 45.5 % [facility] Plt 170 150 - 400 K/cumm [facility] MPV 10.3 9.1 - 12.3 fL [facility] RBC 2.66(L) 3.90 - 5.20 M/cumm [facility] MCV 94.7 81.3 - 96.4 fL [facility] MCH 29.7 27.1 - 33.3 pg [facility] MCHC 31.3(L) 32.3 - 35.7 g/dL [facility] RDW CV 14.1 11.1 - 14.9 % [facility] RDW SD 48.8(H) 35.7 - 48.1 fL [facility] NRBC abs 0.00 0.00 - 0.01 K/cumm [facility] Blood 03/06/2025 9:51 PM CDT 03/06/2025 10:55 PM CDT Riccardo Soliz MD PhD LAB BLOOD ORDERAB LES Final Result [facility] [place] [address] * Phosphorus (03/06/2025 9:51 PM CDT) [facility] Phosphorus, pl 2.8 2.3 - 4.5 mg/dL Blood 03/06/2025 9:51 PM CDT 03/06/2025 10:55 PM CDT Mai Natarajan FLEXOGRAPHIC PRINTING MACHINIST LAB BLOOD ORDERABLES Fin al Result Performing Organization Address City/[facility]/[place] [address] * Magnesium (03/06/2025 9:51 PM CDT) [facility] Magnesium 1.9 1.4 - 2.5 mg/dL Blood 03/06/2025 9:5 1 PM CDT 03/06/2025 10:55 PM CDT Mai Natarajan FLEXOGRAPHIC PRINTING MACHINIST LAB BLOOD ORDERABLES Fin al Result Performing Organization Address City/[facility] Co de Phone Number [facility] [place] [address] * (ABNORMAL) Basic metabolic panel (03/06/2025 9:51 PM CDT) [facility] Sodium 137 135 - 145 mmol/L Potassium, pl 4.4 3.3 - 4.9 mmol/L [facility] Chloride 99 97 - 110 mmol/L [facility] CO2 32 22 - 32 mmol/L [facility] Anion gap 6 2 - 15 mmol/L [facility] BUN 12 6 - 25 mg/dL [facility] Creatinine 0.57(L) 0.60 - 1.10 mg/dL [facility] Glucose 122 70 - 199 mg/dL [facility] Comment: Interpretive Data Fasting glucose >/= 126 mg/dl is diagnostic for diabetes. Fasting is defined as no caloric intake for at least 8 hours. Fasting glucose between 100 mg/dl to 125 mg/dl is diagnostic of prediabetes. In a patient with classic symptoms of hyperglycemia or hyperglycemic crisis, a random glucose >/= 200 mg/dl is diagnostic for diabetes. In the absence of unequivocal hyperglycemia, results should be confirmed by repeat testing. The classification and Diagnosis of Diabetes Diabetes Care 2021; 46: S19-S40. Current interpretive data was last revised 2022. Calcium 8.7 8.5 - 10.3 mg/dL [facility] Blood 03/06/2025 9:51 PM CDT 03/06/2025 10:55 PM CDT us Mai Natarajan NP LAB BLOOD ORDERABLES Fin al Result [facility] Department [place] [address] * XR Chest 1 View (03/06/2025 6:35 PM CDT) Anatomical Region Laterality Modality Body, Chest N/A Computed Radiogr aphy 03/07/2025 6:14 AM CDT Impressions 03/07/2025 6:14 AM CDT Comparison is made to prior from 03/05/2025. Probable miniscule right apical pneumothorax. Small right-sided pleural effusion. Heart and mediastinum are unchanged. Left lung clear. Electronically signed by: Dayne Simmons M.D. Narrative 03/07/2025 6:14 AM CDT EXAMINATION: 1 view chest radiograph Procedure Note Dayne Simmons MD - 03/07/2025 EXAMINATION: 1 view chest radiograph IMPRESSION: Comparison is made to prior from 03/05/2025. Probable miniscule right apical pneumothorax. Small right-sided pleural effusion. Heart and mediastinum are unchanged. Left lung clear. Electronically signed by: Dayne Simmons M.D. us Mai Natarajan NP IMG XR PROCEDURES Final Result * eGFR (03/05/2025 10:45 PM CDT) Pathologist [facility] eGFR 90 >=60 mL/min/1. 73 m2 Comment: Interpretive Data Reference Interval Normal >/= 90 mL/min/1.73m2 Mildly decreased* 60 - 89 mL/min/1.73m2 Mildly to moderately decreased 45 - 59 mL/min/1.73m2 Moderately to severely decreased 30 - 44 mL/min/1.73m2 Severely decreased 15 - 29 mL/min/1.73m2 Kidney Failure < 15 mL/min/1.73m2 *Relative to young adult level Estimated glomerular filtration rate is determined by the 2020 CKD-EPI equation recommended by the National Kidney Foundation (A Unifying Approach to GFR Estimation: Recommendations of the NKF-ASK Task Force on Reassessing the Inclusion of Race in Diagnosing Kidney Disease, JASN 2020). The CKD-EPI equation should not be used for patients with unstable renal function and has not been validated in children and those over 70. Current interpretive data was last reviewed 2021. Blood 03/05/2025 10:4 5 PM CDT 03/05/2025 11:48 PM CDT us Mai Natarajan NP LAB BLOOD ORDERABLES Fin al Result [facility] Department [place] [address] * (ABNORMAL) Differential, auto (03/05/2025 10:45 PM CDT) [facility] Neutrophil abs 10.38(H) 1.50 - 6.50 K/cumm Imm gran abs 0.08 0.00 - 0.10 K/cumm [facility] Lymphocyte abs 1.30 0.80 - 3.30 K/cumm [facility] Monocyte abs 1.31(H) 0.20 - 0.80 K/cumm [facility] Eosinophil abs 0.17 0.00 - 0.50 K/cumm [facility] Basophil abs 0.03 0.00 - 0.10 K/cumm [facility] Neutrophil pct 78.2 % [facility] Comment: Interpretive Data Percent cell count reference ranges are not reported, since discordance with absolute values may lead to misinterpretation of CBC data. Current Interpretive Data was last revised on 2017. Imm gran pct 0.6 % [facility] Comment: Interpretive Data Percent cell count reference ranges are not reported, since discordance with absolute values may lead to misinterpretation of CBC data. Current Interpretive Data was last revised on 2017. Lymphocyte pct 9.8 % [facility] Comment: Interpretive Data Percent cell count reference ranges are not reported, since discordance with absolute values may lead to misinterpretation of CBC data. Current Interpretive Data was last revised on 2017. Monocyte pct 9.9 % [facility] Comment: Interpretive Data Percent cell count reference ranges are not reported, since discordance with absolute values may lead to misinterpretation of CBC data. Current Interpretive Data was last revised on 2017. Eosinophil pct 1.3 % [facility] Comment: Interpretive Data Percent cell count reference ranges are not reported, since discordance with absolute values may lead to misinterpretation of CBC data. Current Interpretive Data was last revised on 2017. Basophil pct 0.2 % [facility] Comment: Interpretive Data Percent cell count reference ranges are not reported, since discordance with absolute values may lead to misinterpretation of CBC data. Current Interpretive Data was last revised on 2017. Blood 03/05/2025 10:4 5 PM CDT 03/05/2025 11:47 PM CDT Riccardo Soliz MD PhD LAB BLOOD ORDERAB LES Final Result [facility] Department [place] [address] * (ABNORMAL) CBC with auto differential (03/05/2025 10:45 PM CDT) WBC 13.27(H) 3.80 - 9.90 K/cumm Hgb 8.0(L) 11.9 - 15.5 g/dL [facility] Hct 25.4(L) 35.6 - 45.5 % [facility] Plt 149(L) 150 - 400 K/cumm [facility] MPV 10.7 9.1 - 12.3 fL [facility] RBC 2.71(L) 3.90 - 5.20 M/cumm [facility] MCV 93.7 81.3 - 96.4 fL [facility] MCH 29.5 27.1 - 33.3 pg [facility] MCHC 31.5(L) 32.3 - 35.7 g/dL [facility] RDW CV 14.2 11.1 - 14.9 % [facility] RDW SD 48.6(H) 35.7 - 48.1 fL [facility] NRBC abs 0.00 0.00 - 0.01 K/cumm [facility] Blood 03/05/2025 10:4 5 PM CDT 03/05/2025 11:47 PM CDT us Riccardo Soliz MD PhD LAB BLOOD ORDERAB LES Final Result [facility] Department [place] [address] * Phosphorus (03/05/2025 10:45 PM CDT) Pathologist [facility] Phosphorus, pl 3.0 2.3 - 4.5 mg/dL Blood 03/05/2025 10:4 5 PM CDT 03/05/2025 11:48 PM CDT us Mai Natarajan FLEXOGRAPHIC PRINTING MACHINIST LAB BLOOD ORDERABLES Fin al Result [facility] Department [place] [address] * Magnesium (03/05/2025 10:45 PM CDT) Magnesium 1.9 1.4 - 2.5 mg/dL Blood 03/05/2025 10:4 5 PM CDT 03/05/2025 11:48 PM CDT Mai Natarajan FLEXOGRAPHIC PRINTING MACHINIST LAB BLOOD ORDERABLES Fin al Result Performing Organization Address City/[facility]/ZIP Co de Phone Number [facility] Department [place] [address] * (ABNORMAL) Basic metabolic panel (03/05/2025 10:45 PM CDT) [facility] Sodium 135 135 - 145 mmol/L Potassium, pl 5.0(H) 3.3 - 4.9 mmol/L [facility] Chloride 99 97 - 110 mmol/L [facility] CO2 31 22 - 32 mmol/L [facility] Anion gap 5 2 - 15 mmol/L [facility] BUN 16 6 - 25 mg/dL [facility] Creatinine 0.74 0.60 - 1.10 mg/dL [facility] Glucose 141 70 - 199 mg/dL [facility] Comment: Interpretive Data Fasting glucose >/= 126 mg/dl is diagnostic for diabetes. Fasting is defined as no caloric intake for at least 8 hours. Fasting glucose between 100 mg/dl to 125 mg/dl is diagnostic of prediabetes. In a patient with classic symptoms of hyperglycemia or hyperglycemic crisis, a random glucose >/= 200 mg/dl is diagnostic for diabetes. In the absence of unequivocal hyperglycemia, results should be confirmed by repeat testing. The classification and Diagnosis of Diabetes Diabetes Care 2021; 46: S19-S40. Current interpretive data was last revised 2022. Calcium 9.2 8.5 - 10.3 mg/dL [facility] Blood 03/05/2025 10:4 5 PM CDT 03/05/2025 11:48 PM CDT Mai Natarajan FLEXOGRAPHIC PRINTING MACHINIST LAB BLOOD ORDERABLES Fin al Result Performing Organization Address [facility] Co de Phone Number [facility] Department [place] [address] * XR Chest 1 View (03/05/2025 8:06 PM CDT) Anatomical Region Laterality Modality Body, Chest N/A Digital Radiogra phy 03/06/2025 7:24 AM CDT Impressions 03/06/2025 8:32 AM CDT Comparison is made with multiple prior exams, most recently 03/04/2025. Surgical staple line projects over the right midlung. The heart and mediastinal contours are normal. Mild bibasilar atelectasis. Small right pleural effusion. No left pleural effusion. No pneumothorax. Dictated by: Darien Onofre M.D. The radiology attending physician has personally reviewed this study, and had reviewed and/or edited this written report and agrees with it. Electronically signed by: Yoon Felix M.D. Narrative 03/06/2025 8:32 AM CDT EXAMINATION: 1 view chest radiograph Procedure Note Yoon Felix MD - 03/06/2025 EXAMINATION: 1 view chest radiograph IMPRESSION: Comparison is made with multiple prior exams, most recently 03/04/2025. Surgical staple line projects over the right midlung. The heart and mediastinal contours are normal. Mild bibasilar atelectasis. Small right pleural effusion. No left pleural effusion. No pneumothorax. Dictated by: Darien Onofre M.D. The radiology attending physician has personally reviewed this study, and had reviewed and/or edited this written report and agrees with it. Electronically signed by: Yoon Felix M.D. Mai Natarajan FLEXOGRAPHIC PRINTING MACHINIST IMG XR PROCEDURES Final Result * (ABNORMAL) CBC without differential (03/05/2025 2:38 PM CDT) WBC 13.32(H) 3.80 - 9.90 K/cumm Hgb 8.6(L) 11.9 - 15.5 g/dL [facility] Hct 26.5(L) 35.6 - 45.5 % [facility] Plt 186 150 - 400 K/cumm [facility] MPV 10.5 9.1 - 12.3 fL [facility] RBC 2.88(L) 3.90 - 5.20 M/cumm [facility] MCV 92.0 81.3 - 96.4 fL [facility] MCH 29.9 27.1 - 33.3 pg [facility] MCHC 32.5 32.3 - 35.7 g/dL [facility] RDW CV 14.0 11.1 - 14.9 % [facility] RDW SD 47.8 35.7 - 48.1 fL [facility] NRBC abs 0.00 0.00 - 0.01 K/cumm [facility] Blood 03/05/2025 2:38 PM CDT 03/05/2025 2:55 PM CDT us Mai Natarajan NP LAB BLOOD ORDERABLES Fin al Result [facility] [place] [address] * (ABNORMAL) eGFR (03/05/2025 6:30 AM CDT) eGFR 58(L) >=60 mL/min/1. 73 m2 Comment: Interpretive Data Reference Interval Normal >/= 90 mL/min/1.73m2 Mildly decreased* 60 - 89 mL/min/1.73m2 Mildly to moderately decreased 45 - 59 mL/min/1.73m2 Moderately to severely decreased 30 - 44 mL/min/1.73m2 Severely decreased 15 - 29 mL/min/1.73m2 Kidney Failure < 15 mL/min/1.73m2 *Relative to young adult level Estimated glomerular filtration rate is determined by the 2020 CKD-EPI equation recommended by the National Kidney Foundation (A Unifying Approach to GFR Estimation: Recommendations of the NKF-ASK Task Force on Reassessing the Inclusion of Race in Diagnosing Kidney Disease, JASN 202). The CKD-EPI equation should not be used for patients with unstable renal function and has not been validated in children and those over 70. Current interpretive data was last reviewed 2021. Blood 03/05/2025 6:30 AM CDT 03/05/2025 7:48 AM CDT Mai Natarajan NP LAB BLOOD ORDERABLES Fin al Result Performing Organization Address [facility] Co de Phone Number [facility] [place] [address] * Legionella antigen Urine (03/05/2025 6:30 AM CDT) [facility] Legionella Ag Negative Negative Comment: Interpretive Data This test detects only Legionella pneumophila serogroup 1 antigen. Testing performed by [facility] ([phone]). Current interpretive data was last revised on 2019. Urine 03/05/2025 6:30 AM CDT 03/05/2025 8:29 AM CDT Mai Natarajan NP LAB MICROBIOLOGY - GENER AL ORDERABLES Final Result Performing Organization Address [facility] de Phone Number [facility] Department [place] [address] * (ABNORMAL) CBC without differential (03/05/2025 6:30 AM CDT) [facility] WBC 8.53 3.80 - 9.90 K/cumm Hgb 7.2(L) 11.9 - 15.5 g/dL [facility] Hct 21.7(L) 35.6 - 45.5 % [facility] Plt 124(L) 150 - 400 K/cumm [facility] MPV 11.0 9.1 - 12.3 fL [facility] RBC 2.39(L) 3.90 - 5.20 M/cumm [facility] MCV 90.8 81.3 - 96.4 fL [facility] MCH 30.1 27.1 - 33.3 pg [facility] MCHC 33.2 32.3 - 35.7 g/dL [facility] RDW CV 13.8 11.1 - 14.9 % [facility] RDW SD 45.7 35.7 - 48.1 fL [facility] NRBC abs 0.00 0.00 - 0.01 K/cumm [facility] Blood 03/05/2025 6:30 AM CDT 03/05/2025 6:57 AM CDT Mai Natarajan FLEXOGRAPHIC PRINTING MACHINIST LAB BLOOD ORDERABLES Fin al Result Performing Organization Address [facility] Co de Phone Number [facility] [place] [address] * Magnesium (03/05/2025 6:30 AM CDT) [facility] Magnesium 2.0 1.4 - 2.5 mg/dL Blood 03/05/2025 6:30 AM CDT 03/05/2025 7:48 AM CDT Mai Natarajan FLEXOGRAPHIC PRINTING MACHINIST LAB BLOOD ORDERABLES Fin al Result Performing Organization Address [facility] de Phone Number [facility] [place] [address] * (ABNORMAL) Renal function panel (03/05/2025 6:30 AM CDT) [facility] Sodium 133(L) 135 - 145 mmol/L Potassium, pl 4.5 3.3 - 4.9 mmol/L [facility] Chloride 100 97 - 110 mmol/L [facility] CO2 28 22 - 32 mmol/L [facility] Anion gap 5 2 - 15 mmol/L [facility] BUN 24 6 - 25 mg/dL [facility] Creatinine 1.07 0.60 - 1.10 mg/dL [facility] Glucose 111 70 - 199 mg/dL [facility] Comment: Interpretive Data Fasting glucose >/= 126 mg/dl is diagnostic for diabetes. Fasting is defined as no caloric intake for at least 8 hours. Fasting glucose between 100 mg/dl to 125 mg/dl is diagnostic of prediabetes. In a patient with classic symptoms of hyperglycemia or hyperglycemic crisis, a random glucose >/= 200 mg/dl is diagnostic for diabetes. In the absence of unequivocal hyperglycemia, results should be confirmed by repeat testing. The classification and Diagnosis of Diabetes Diabetes Care 2021; 46: S19-S40. Current interpretive data was last revised 2022. Calcium 8.9 8.5 - 10.3 mg/dL [facility] Phosphorus, pl 3.0 2.3 - 4.5 mg/dL [facility] Albumin 2.9(L) 3.5 - 5.0 g/dL [facility] Blood 03/05/2025 6:30 AM CDT 03/05/2025 7:48 AM CDT us Mai Natarajan FLEXOGRAPHIC PRINTING MACHINIST LAB BLOOD ORDERABLES Fin al Result [facility] Department [place] [address] * Lipid panel (03/05/2025 6:30 AM CDT) Cholesterol 123 30 - 199 mg/dL Comment: Interpretive Data Ages < or = 19 years Acceptable: <170 mg/dL Borderline high: 170-199 mg/dL High: >or= 200 mg/dL Ages > or = 20 years Desirable: <200 mg/dL Borderline high: 200-239 mg/dL High: >or= 240 mg/dL Literature References: 1. Expert Panel on Integrated Guidelines for Cardiovascular Health and Risk Reduction in Children and Adolescents. Pediatrics 2011;128:S213 2. NCEP Expert Panel. Circulation 2004;110:227 Current Interpretive Data was last revised on 2018. Triglycerides 64 <=149 mg/dL [facility] Comment: Interpretive Data Ages < or = 9 years Acceptable: <75 mg/dL Borderline high: 75-99 mg/dL High: >or= 100 mg/dL Ages 10 to 20 years Acceptable: <90 mg/dL Borderline high: 90-129 mg/dL High: >or= 130 mg/dL Ages > or = 20 years Desirable: <150 mg/dL Borderline high: 150-199 mg/dL High: 200-499 mg/dL Very high: >or= 499 mg/dL Literature References: 1. Expert Panel on Integrated Guidelines for Cardiovascular Health and Risk Reduction in Children and Adolescents. Pediatrics 2011;128:S213 2. NCEP Expert Panel. Circulation 2004;110:227 Current Interpretive Data was last revised on 2018. HDL 78 >=40 mg/dL [facility] Comment: Interpretive Data Ages < or = 19 years Acceptable: >45 mg/dL Borderline low: 40-45 mg/dL Low: <40 mg/dL Ages > or = 20 years Desirable: >or= 60 mg/dL Low: <40 mg/dL Literature References: 1. Expert Panel on Integrated Guidelines for Cardiovascular Health and Risk Reduction in Children and Adolescents. Pediatrics 2011;128:S213 2. NCEP Expert Panel. Circulation 2004;110:227 Current Interpretive Data was last revised on 2018. LDL, calculated 31 <=129 mg/dL [facility] Comment: Interpretive Data Ages < or = 19 years Acceptable: <110 mg/dL Borderline high: 110-129 mg/dL High: >or= 130 mg/dL Ages > or = 20 years Optimal: <100 mg/dL Near optimal: 100-129 mg/dL Borderline high: 130-159 mg/dL High: >160 mg/dL Calculated using the Tacos LDL-C estimating equation. This equation was implemented on 2024. Prior to this date LDL-C was estimated using the Friedewald equation. Literature References: 1. Expert Panel on Integrated Guidelines for Cardiovascular Health and Risk Reduction in Children and Adolescents. Pediatrics 2011;128:S213 2. NCEP Expert Panel. Circulation 2004;110:227 3. Tacos Moscoso et al. MEENAKSHI Cardiol. 2019October 15;5(5):540-548. doi: 10.1001/[email or web address] Current Interpretive Data was last revised on 2024. Non-HDL Cholesterol 45 mg/dL [facility] Comment: Interpretive Data Ages < or = 19 years Acceptable: <120 mg/dL Borderline high: 120-144 mg/dL High: >145 mg/dL Ages > or = 20 years When triglycerides are >200 mg/dL, Non-HDL cholesterol is a secondary target of therapy with treatment goals that are 30 mg/dL greater than the LDL cholesterol target. Literature References: 1. Expert Panel on Integrated Guidelines for Cardiovascular Health and Risk Reduction in Children and Adolescents. Pediatrics 2011;128:S213 2. NCEP Expert Panel. Circulation 2004;110:227 Current Interpretive Data was last revised on 2018. Chol/HDL ratio 2 [facility] Blood 03/05/2025 6:30 AM CDT 03/05/2025 7:48 AM CDT Mai Natarajan NP LAB BLOOD ORDERABLES Fin al Result [facility] Department [place] [address] * Critical Care (03/05/2025 6:21 AM CDT) Narrative Darien Oliver MD - 03/05/2025 6:21 AM CDT Darien Oliver MD 03/05/2025 6:13 PM Critical Care Performed by: Mai Natarajan NP Authorized by: Mai Natarajan NP CRITICAL CARE: Team: SICU RED Shift: AM Level of Billing: Critical Care My time spent with this patient was 85 minutes: Critical Provider Statement: I have seen and examined the patient on this day of service. I have reviewed and confirmed the history, physical exam, laboratory and radiologic data as documented in the signed ICU note. I have reviewed and discussed my treatment plan with the ICU team and other medical/outplacement consultant staff, making frequent assessments and decisions regarding this patient's complex medical care. Critical Care time was exclusive of time spent performing separately billed procedures, treating other patients, and teaching. This time was in addition to and separate from critical care provided by other practitioners in my group on this day of service. Critical Care was necessary to treat or prevent imminent or life-threatening deterioration of the following conditions: I spent time reviewing and interpreting data from bedside monitors, laboratory results, and imaging, I spent time discussing the management of this critically ill patient with consultants and the medical staff and I spent time documenting in the medical record us Mai Natarajan NP IN CLINIC/BEDSIDE ORDERA BLES Final Result * Sodium, urine, random (03/05/2025 1:11 AM CDT) Sodium, ur <20 mmol/L Comment: Repeated and Verified Interpretive Data No reference range established. Current interpretive data was last revised 2018. Urine 03/05/2025 1:11 AM CDT 03/05/2025 2:07 AM CDT Riccardo Soliz MD PhD LAB URINE ORDERAB LES Final Result Performing Organization Address [facility] [place] [address] * Osmolality, urine (03/05/2025 1:11 AM CDT) Osmo, ur 107 mOsm/kg Urine 03/05/2025 1:11 AM CDT 03/05/2025 2:07 AM CDT Riccardo Soliz MD PhD LAB URINE ORDERAB LES Final Result Performing Organization Address [facility] [place] [address] * (ABNORMAL) Urinalysis reflex to microscopic and culture Urine (03/05/2025 12:58 AM CDT) Color, ur Straw Yellow Clarity, ur Clear Clear [facility] Specific gravity, ur 1.009 1.003 - 1.030 [facility] pH, urine 6.5 [facility] Comment: Interpretive Data U rine pH is affected by diet, medications, systemic acid-base disturbances, and renal tubular function. pH may affect urinary stone formation. For example, urine pH below 6.0 may help reduce the tendency for calcium phosphate stones and pH greater than 6.0 may reduce the tendency for uric acid stone formation. Source: [facility] [employer] - [employer] Current Interpretive Data was last revised on 2017 Protein, ur ql Trace Negative [facility] Glucose, ur ql Negative Negative [facility] Ketones, ur Negative Negative [facility] Bilirubin, ur Negative Negative [facility] Blood, ur 2+(A) Negative [facility] Urobilinogen, ur <2.0 <2.0 mg/dL [facility] Nitrite, ur Negative Negative [facility] Leukocyte esterase, ur 1+(A) Negative [facility] UA reflex comment Reflex to microscopic UA will be performed. [facility] Urine 03/05/2025 12:5 8 AM CDT 03/05/2025 1:41 AM CDT Mariam Frank Gipson MD LAB MICROBIOLOGY - GE NERAL ORDERABLES Final Result Performing Organization Address [facility] Co de Phone Number [facility] Department [place] [address] * (ABNORMAL) Urinalysis, microscopic only (03/05/2025 12:58 AM CDT) WBC, ur 0-5 0 - 5 /HPF RBC, ur 3-5(A) 0 - 2 /HPF [facility] Epithelial cells, squamous, ur 1-5 0 - 5 /HPF [facility] Bacteria, ur Trace(A) [facility] Mucous, ur Present(A) [facility] Culture Reflex Comment Reflex conditions for urine culture (WBC >10) not met. [facility] Urine 03/05/2025 12:5 8 AM CDT 03/05/2025 1:41 AM CDT Mariam Gipson MD LAB URINE ORDERABLES Final Result Performing Organization Address [facility] de Phone Number [facility] [place] [address] * Critical Care (03/04/2025 9:29 PM CDT) Narrative Nick Pollack MD - 03/04/2025 9:29 PM CDT Nick Pollack MD 03/05/2025 6:10 AM Critical Care Performed by: Nick Pollack MD Authorized by: Nick Pollack MD CRITICAL CARE: Team: SICU RED Shift: PM Level of Billing: Critical Care My time spent with this patient was 30 minutes: Critical Provider Statement: I have seen and examined the patient on this day of service. I have reviewed and confirmed the history, physical exam, laboratory and radiologic data as documented in the signed ICU note. I have reviewed and discussed my treatment plan with the ICU team and other medical/outplacement consultant staff, making frequent assessments and decisions regarding this patient's complex medical care. Critical Care time was exclusive of time spent performing separately billed procedures, treating other patients, and teaching. This time was in addition to and separate from critical care provided by other practitioners in my group on this day of service. Critical Care was necessary to treat or prevent imminent or life-threatening deterioration of the following conditions: us Nick Pollack MD IN CLINIC/BEDSIDE JACY DOMÍNGUEZ Final Result * XR Chest 1 View (03/04/2025 8:13 PM CDT) Anatomical Region Laterality Modality Body, Chest N/A Computed Radiogr aphy 03/05/2025 10:5 3 AM CDT Impressions 03/05/2025 11:26 AM CDT Comparison dated 03/04/2025 at 5:08 PM. Right middle lung staple line is again seen. Small, residual right apical pneumothorax, slightly increased from prior. Lungs are otherwise clear. There is no pulmonary edema or pleural effusion. No left pneumothorax. Cardiac mediastinal silhouette is stable. Dictated by: Dwain Kelly M.D. The radiology attending physician has personally reviewed this study, and had reviewed and/or edited this written report and agrees with it. Electronically signed by: Sabas Ly M.D. Narrative 03/05/2025 11:26 AM CDT EXAMINATION: 1 view chest radiograph Procedure Note Sabas Ly MD - 03/05/2025 EXAMINATION: 1 view chest radiograph IMPRESSION: Comparison dated 03/04/2025 at 5:08 PM. Right middle lung staple line is again seen. Small, residual right apical pneumothorax, slightly increased from prior. Lungs are otherwise clear. There is no pulmonary edema or pleural effusion. No left pneumothorax. Cardiac mediastinal silhouette is stable. Dictated by: Dwain Kelly M.D. The radiology attending physician has personally reviewed this study, and had reviewed and/or edited this written report and agrees with it. Electronically signed by: Sabas Ly M.D. us Mai Natarajan FLEXOGRAPHIC PRINTING MACHINIST IMG XR PROCEDURES Final Result * (ABNORMAL) eGFR (03/04/2025 7:34 PM CDT) eGFR 38(L) >=60 mL/min/1. 73 m2 Comment: Interpretive Data Reference Interval Normal >/= 90 mL/min/1.73m2 Mildly decreased* 60 - 89 mL/min/1.73m2 Mildly to moderately decreased 45 - 59 mL/min/1.73m2 Moderately to severely decreased 30 - 44 mL/min/1.73m2 Severely decreased 15 - 29 mL/min/1.73m2 Kidney Failure < 15 mL/min/1.73m2 *Relative to young adult level Estimated glomerular filtration rate is determined by the 2020 CKD-EPI equation recommended by the National Kidney Foundation (A Unifying Approach to GFR Estimation: Recommendations of the NKF-ASK Task Force on Reassessing the Inclusion of Race in Diagnosing Kidney Disease, JASN 2020). The CKD-EPI equation should not be used for patients with unstable renal function and has not been validated in children and those over 70. Current interpretive data was last reviewed 2021. Blood 03/04/2025 7:34 PM CDT 03/04/2025 8:43 PM CDT us Riccardo Soliz MD PhD LAB BLOOD ORDERAB LES Final Result [facility] Department [place] [address] * (ABNORMAL) Differential, auto (03/04/2025 7:34 PM CDT) Neutrophil abs 11.94(H) 1.50 - 6.50 K/cumm Imm gran abs 0.07 0.00 - 0.10 K/cumm [facility] Lymphocyte abs 1.30 0.80 - 3.30 K/cumm [facility] Monocyte abs 1.15(H) 0.20 - 0.80 K/cumm [facility] Eosinophil abs 0.03 0.00 - 0.50 K/cumm [facility] Basophil abs 0.03 0.00 - 0.10 K/cumm [facility] Neutrophil pct 82.2 % [facility] Comment: Interpretive Data Percent cell count reference ranges are not reported, since discordance with absolute values may lead to misinterpretation of CBC data. Current Interpretive Data was last revised on 2017. Imm gran pct 0.5 % [facility] Comment: Interpretive Data Percent cell count reference ranges are not reported, since discordance with absolute values may lead to misinterpretation of CBC data. Current Interpretive Data was last revised on 2017. Lymphocyte pct 9.0 % [facility] Comment: Interpretive Data Percent cell count reference ranges are not reported, since discordance with absolute values may lead to misinterpretation of CBC data. Current Interpretive Data was last revised on 2017. Monocyte pct 7.9 % [facility] Comment: Interpretive Data Percent cell count reference ranges are not reported, since discordance with absolute values may lead to misinterpretation of CBC data. Current Interpretive Data was last revised on 2017. Eosinophil pct 0.2 % [facility] Comment: Interpretive Data Percent cell count reference ranges are not reported, since discordance with absolute values may lead to misinterpretation of CBC data. Current Interpretive Data was last revised on 2017. Basophil pct 0.2 % [facility] Comment: Interpretive Data Percent cell count reference ranges are not reported, since discordance with absolute values may lead to misinterpretation of CBC data. Current Interpretive Data was last revised on 2017. Blood 03/04/2025 7:34 PM CDT 03/04/2025 7:43 PM CDT us Riccardo Soliz MD PhD LAB BLOOD ORDERAB LES Final Result [facility] Department [place] [address] * (ABNORMAL) CBC with auto differential (03/04/2025 7:34 PM CDT) Pathologist [facility] WBC 14.52(H) 3.80 - 9.90 K/cumm Hgb 8.0(L) 11.9 - 15.5 g/dL [facility] Hct 23.8(L) 35.6 - 45.5 % [facility] Plt 146(L) 150 - 400 K/cumm [facility] MPV 10.7 9.1 - 12.3 fL [facility] RBC 2.64(L) 3.90 - 5.20 M/cumm [facility] MCV 90.2 81.3 - 96.4 fL [facility] MCH 30.3 27.1 - 33.3 pg [facility] MCHC 33.6 32.3 - 35.7 g/dL [facility] RDW CV 14.1 11.1 - 14.9 % [facility] RDW SD 45.9 35.7 - 48.1 fL [facility] NRBC abs 0.00 0.00 - 0.01 K/cumm [facility] Blood 03/04/2025 7:34 PM CDT 03/04/2025 7:43 PM CDT us Riccardo Soliz MD PhD LAB BLOOD ORDERAB LES Final Result [facility] [place] [address] * Phosphorus (03/04/2025 7:34 PM CDT) Pathologist [facility] Phosphorus, pl 4.2 2.3 - 4.5 mg/dL Blood 03/04/2025 7:34 PM CDT 03/04/2025 8:43 PM CDT us Mai Natarajan [employer]OGRAPH[employer] PRINTING MACHINIST LAB BLOOD ORDERABLES Fin al Result [facility] [place] [address] * Magnesium (03/04/2025 7:34 PM CDT) [facility] Magnesium 2.0 1.4 - 2.5 mg/dL Blood 03/04/2025 7:34 PM CDT 03/04/2025 8:43 PM CDT Mai Natarajan FLEXOGRAPHIC PRINTING MACHINIST LAB BLOOD ORDERABLES Fin al Result [facility] [place] [address] * (ABNORMAL) Basic metabolic panel (03/04/2025 7:34 PM CDT) [facility] Sodium 125(L) 135 - 145 mmol/L Potassium, pl 4.9 3.3 - 4.9 mmol/L [facility] Chloride 92(L) 97 - 110 mmol/L [facility] CO2 29 22 - 32 mmol/L [facility] Anion gap 4 2 - 15 mmol/L [facility] BUN 32(H) 6 - 25 mg/dL [facility] Creatinine 1.50(H) 0.60 - 1.10 mg/dL [facility] Glucose 167 70 - 199 mg/dL [facility] Comment: Interpretive Data Fasting glucose >/= 126 mg/dl is diagnostic for diabetes. Fasting is defined as no caloric intake for at least 8 hours. Fasting glucose between 100 mg/dl to 125 mg/dl is diagnostic of prediabetes. In a patient with classic symptoms of hyperglycemia or hyperglycemic crisis, a random glucose >/= 200 mg/dl is diagnostic for diabetes. In the absence of unequivocal hyperglycemia, results should be confirmed by repeat testing. The classification and Diagnosis of Diabetes Diabetes Care 202; 46: S19-S40. Current interpretive data was last revised 2022. Calcium 9.1 8.5 - 10.3 mg/dL [facility] Blood 03/04/2025 7:34 PM CDT 03/04/2025 8:43 PM CDT us Riccardo Soliz MD PhD LAB BLOOD ORDERAB LES Final Result [facility] [place] [address] * XR Chest 1 View (03/04/2025 5:19 PM CDT) Anatomical Region Laterality Modality Body, Chest N/A Digital Radiogra phy 03/04/2025 6:40 PM CDT Impressions 03/04/2025 6:40 PM CDT Comparison 03/04/2025 at 1:24 PM. Right chest tube has been removed. Small right apical pneumothorax seen. No left pneumothorax seen. Patchy right perihilar and right midlung opacity unchanged. Right rib fractures better seen on computed tomographic examination 03/02/2025. No pleural effusion seen. Heart size within normal limits. Electronically signed by: Sabas Ly M.D. Narrative 03/04/2025 6:40 PM CDT EXAMINATION: 1 view chest radiograph Procedure Note Sabas Ly MD - 03/04/2025 EXAMINATION: 1 view chest radiograph IMPRESSION: Comparison 03/04/2025 at 1:24 PM. Right chest tube has been removed. Small right apical pneumothorax seen. No left pneumothorax seen. Patchy right perihilar and right midlung opacity unchanged. Right rib fractures better seen on computed tomographic examination 03/02/2025. No pleural effusion seen. Heart size within normal limits. Electronically signed by: Sabas Ly M.D. us Mai Natarajan F[employer]OGRAPHIC PRINTING MACHINIST IMG XR PROCEDURES Final Result * (ABNORMAL) eGFR (03/04/2025 3:33 PM CDT) Pathologist [facility] eGFR 28(L) >=60 mL/min/1. 73 m2 Comment: Interpretive Data Reference Interval Normal >/= 90 mL/min/1.73m2 Mildly decreased* 60 - 89 mL/min/1.73m2 Mildly to moderately decreased 45 - 59 mL/min/1.73m2 Moderately to severely decreased 30 - 44 mL/min/1.73m2 Severely decreased 15 - 29 mL/min/1.73m2 Kidney Failure < 15 mL/min/1.73m2 *Relative to young adult level Estimated glomerular filtration rate is determined by the 2020 CKD-EPI equation recommended by the National Kidney Foundation (A Unifying Approach to GFR Estimation: Recommendations of the NKF-ASK Task Force on Reassessing the Inclusion of Race in Diagnosing Kidney Disease, JASN 2020). The CKD-EPI equation should not be used for patients with unstable renal function and has not been validated in children and those over 70. Current interpretive data was last reviewed 2021. Blood 03/04/2025 3:33 PM CDT 03/04/2025 3:42 PM CDT Mai Natarajan FLEXOGRAPHIC PRINTING MACHINIST LAB BLOOD ORDERABLES Fin al Result Performing Organization Address [facility]/ZIP Co de Phone Number [facility] Department [place] [address] * Magnesium (03/04/2025 3:33 PM CDT) [facility] Magnesium 2.0 1.4 - 2.5 mg/dL Blood 03/04/2025 3:33 PM CDT 03/04/2025 3:42 PM CDT Mai Natarajan FLEXOGRAPHIC PRINTING MACHINIST LAB BLOOD ORDERABLES Fin al Result Performing Organization Address [facility] Co de Phone Number [facility] [employer] [place] [place] [address] * (ABNORMAL) Basic metabolic panel (03/04/2025 3:33 PM CDT) Pathologist [facility] Sodium 127(L) 135 - 145 mmol/L Potassium, pl 4.5 3.3 - 4.9 mmol/L [facility] Chloride 90(L) 97 - 110 mmol/L [facility] CO2 30 22 - 32 mmol/L [facility] Anion gap 7 2 - 15 mmol/L [facility] BUN 36(H) 6 - 25 mg/dL [facility] Creatinine 1.93(H) 0.60 - 1.10 mg/dL [facility] Glucose 150 70 - 199 mg/dL [facility] Comment: Interpretive Data Fasting glucose >/= 126 mg/dl is diagnostic for diabetes. Fasting is defined as no caloric intake for at least 8 hours. Fasting glucose between 100 mg/dl to 125 mg/dl is diagnostic of prediabetes. In a patient with classic symptoms of hyperglycemia or hyperglycemic crisis, a random glucose >/= 200 mg/dl is diagnostic for diabetes. In the absence of unequivocal hyperglycemia, results should be confirmed by repeat testing. The classification and Diagnosis of Diabetes Diabetes Care 2021; 46: S19-S40. Current interpretive data was last revised 2022. Calcium 9.3 8.5 - 10.3 mg/dL [facility] Blood 03/04/2025 3:33 PM CDT 03/04/2025 3:42 PM CDT us Mai Natarajan NP LAB BLOOD ORDERABLES [facility] al Result [facility] Department [place] [address] * XR Chest 1 View (03/04/2025 1:56 PM CDT) Anatomical Region Laterality Modality Body, Chest N/A Digital Radiogra phy 03/04/2025 1:58 PM CDT Impressions 03/04/2025 1:58 PM CDT The current study is compared with the prior radiograph dated 03/04/2025. A right chest tube is in place. No right pneumothorax is seen. There is no right effusion. Left lung normal. There are acute right rib fractures. The heart and mediastinal contours are stable.. Electronically signed by: Miriam Sandy M.D. Narrative 03/04/2025 1:58 PM CDT EXAMINATION: 1 view chest radiograph Procedure Note Miiram Sandy MD - 03/04/2025 EXAMINATION: 1 view chest radiograph IMPRESSION: The current study is compared with the prior radiograph dated 03/04/2025. A right chest tube is in place. No right pneumothorax is seen. There is no right effusion. Left lung normal. There are acute right rib fractures. The heart and mediastinal contours are stable.. Electronically signed by: Miriam Sandy M.D. us Mai Natarajan FLEXOGRAPHIC PRINTING MACHINIST IMG XR PROCEDURES Final Result * US Kidney Complete (03/04/2025 8:50 AM CDT) Anatomical Region Laterality Modality Kidney N/A Ultrasound 03/04/2025 10:1 1 AM CDT Impressions 03/04/2025 10:22 AM CDT Normal sonographic appearance of the kidneys. No hydronephrosis. Dictated by: Mikey Reza MD The radiology attending physician has personally reviewed this study, and had reviewed and/or edited this written report and agrees with it. Electronically signed by: Jose M Rodriguez M.D. Narrative 03/04/2025 10:22 AM CDT EXAMINATION: COMPLETE RENAL SONOGRAM HISTORY: 64-year-old female admitted for trauma presenting with acute kidney injury. COMPARISON: 03/02/2025 FINDINGS: Kidneys: The echogenicity of both kidneys is normal. The kidneys are normal in size. The right kidney measures 10.8 cm in length, and the left, 10.1 cm in length. There is no hydronephrosis in either kidney. There are no renal calculi visualized. There is a small cyst in the lower pole of the right kidney without suspicious sonographic features. Bladder: The urinary bladder is decompressed Procedure Note Jose M Rodriguez MD - 03/04/2025 EXAMINATION: COMPLETE RENAL SONOGRAM HISTORY: 64-year-old female admitted for trauma presenting with acute kidney injury. COMPARISON: 03/02/2025 FINDINGS: Kidneys: The echogenicity of both kidneys is normal. The kidneys are normal in size. The right kidney measures 10.8 cm in length, and the left, 10.1 cm in length. There is no hydronephrosis in either kidney. There are no renal calculi visualized. There is a small cyst in the lower pole of the right kidney without suspicious sonographic features. Bladder: The urinary bladder is decompressed IMPRESSION: Normal sonographic appearance of the kidneys. No hydronephrosis. Dictated by: Mikey Reza MD The radiology attending physician has personally reviewed this study, and had reviewed and/or edited this written report and agrees with it. Electronically signed by: Jose M Rodriguez M.D. us Riccardo Gavin Soliz MD PhD IMG US PROCEDURES Final Result * XR Chest 1 View (03/04/2025 8:26 AM CDT) Anatomical Region Laterality Modality Body, Chest N/A Digital Radiogra phy 03/04/2025 11:2 2 AM CDT Impressions 03/04/2025 12:53 PM CDT Comparison dated 03/03/2025. Stable positioning of right chest tube. Suture line in right midlung. Hyperinflated lungs. Trace right pneumothorax, decreased from prior. No left pneumothorax. No pulmonary consolidation or pleural effusion. Stable cardiomediastinal silhouette. Dictated by: Dwain Kelly M.D. The radiology attending physician has personally reviewed this study, and had reviewed and/or edited this written report and agrees with it. Electronically signed by: Regina Sanchez M.D. Narrative 03/04/2025 12:53 PM CDT EXAMINATION: 1 view chest radiograph Procedure Note Regina Sanchez MD - 03/04/2025 EXAMINATION: 1 view chest radiograph IMPRESSION: Comparison dated 03/03/2025. Stable positioning of right chest tube. Suture line in right midlung. Hyperinflated lungs. Trace right pneumothorax, decreased from prior. No left pneumothorax. No pulmonary consolidation or pleural effusion. Stable cardiomediastinal silhouette. Dictated by: Dwain Kelly M.D. The radiology attending physician has personally reviewed this study, and had reviewed and/or edited this written report and agrees with it. Electronically signed by: Regina Sanchez M.D. Mai Natarajan FLEXOGRAPHIC PRINTING MACHINIST IMG XR PROCEDURES Final Result * Critical Care (03/04/2025 6:38 AM CDT) Narrative Darien Oliver MD - 03/04/2025 6:38 AM CDT Darien Oliver MD 03/05/2025 6:13 PM Critical Care Performed by: Mai Natarajan NP Authorized by: Mai Natarajan NP CRITICAL CARE: Team: SICU RED Shift: AM Level of Billing: Critical Care My time spent with this patient was 80 minutes: Critical Provider Statement: I have seen and examined the patient on this day of service. I have reviewed and confirmed the history, physical exam, laboratory and radiologic data as documented in the signed ICU note. I have reviewed and discussed my treatment plan with the ICU team and other medical/outplacement consultant staff, making frequent assessments and decisions regarding this patient's complex medical care. Critical Care time was exclusive of time spent performing separately billed procedures, treating other patients, and teaching. This time was in addition to and separate from critical care provided by other practitioners in my group on this day of service. Critical Care was necessary to treat or prevent imminent or life-threatening deterioration of the following conditions: us Mai Natarajan FLEXOGRAPHIC PRINTING MACHINIST IN CLINIC/BEDSIDE ORDERA BLES Final Result * Potassium, whole blood (03/04/2025 5:43 AM CDT) Pathologist [facility] Potassium, bld 4.7 3.3 - 4.9 mmol/L Blood 03/04/2025 5:43 AM CDT 03/04/2025 5:48 AM CDT Riccardo Soliz MD PhD LAB BLOOD ORDERAB LES Final Result [facility] Department [place] [address] * (ABNORMAL) eGFR (03/04/2025 5:43 AM CDT) eGFR 25(L) >=60 mL/min/1. 73 m2 Comment: Interpretive Data Reference Interval Normal >/= 90 mL/min/1.73m2 Mildly decreased* 60 - 89 mL/min/1.73m2 Mildly to moderately decreased 45 - 59 mL/min/1.73m2 Moderately to severely decreased 30 - 44 mL/min/1.73m2 Severely decreased 15 - 29 mL/min/1.73m2 Kidney Failure < 15 mL/min/1.73m2 *Relative to young adult level Estimated glomerular filtration rate is determined by the 2020 CKD-EPI equation recommended by the National Kid[employer] (A Unifying Approach to GFR Estimation: Recommendations of the NKF-ASK Task Force on Reassessing the Inclusion of Race in Diagnosing Kidney Disease, JASN 2020). The CKD-EPI equation should not be used for patients with unstable renal function and has not been validated in children and those over 70. Current interpretive data was last reviewed 2021. Blood 03/04/2025 5:43 AM CDT 03/04/2025 5:53 AM CDT us Riccardo Soliz MD PhD LAB BLOOD ORDERAB LES Final Result [facility] Department of [facility] [employer] [place] [place] [address] * (ABNORMAL) Phosphorus (03/04/2025 5:43 AM CDT) Pathologist [facility] Phosphorus, pl 5.7(H) 2.3 - 4.5 mg/dL Blood 03/04/2025 5:43 AM CDT 03/04/2025 5:53 AM CDT Riccardo Soliz MD PhD LAB BLOOD ORDERAB LES Final Result [facility] Department of [facility] [facility] [employer] [place] [place] [address] * Magnesium (03/04/2025 5:43 AM CDT) [facility] Magnesium 2.1 1.4 - 2.5 mg/dL Blood 03/04/2025 5:43 AM CDT 03/04/2025 5:53 AM CDT Riccardo Soliz MD PhD LAB BLOOD ORDERAB LES Final Result Performing Organization Address [facility]/ZIP Co de Phone Number [facility] [place] [address] * (ABNORMAL) Hepatic function panel (03/04/2025 5:43 AM CDT) [facility] Bilirubin, total 0.4 0.1 - 1.2 mg/dL Bilirubin, direct <0.2 0.1 - 0.3 mg/dL [facility] Protein, pl 6.6 6.5 - 8.5 g/dL [facility] Albumin 3.8 3.5 - 5.0 g/dL [facility] Alk phos 128 40 - 130 Units/L [facility] ALT 49(H) 7 - 45 Units/L [facility] AST 95(H) 10 - 45 Units/L [facility] Blood 03/04/2025 5:43 AM CDT 03/04/2025 5:53 AM CDT Riccardo Soliz MD PhD LAB BLOOD ORDERAB LES Final Result Performing Organization Address [facility] Co de Phone Number [facility] [place] [address] * (ABNORMAL) Basic metabolic panel (03/04/2025 5:43 AM CDT) [facility] Sodium 129(L) 135 - 145 mmol/L Potassium, pl 4.5 3.3 - 4.9 mmol/L [facility] Chloride 94(L) 97 - 110 mmol/L [facility] CO2 27 22 - 32 mmol/L [facility] Anion gap 8 2 - 15 mmol/L [facility] BUN 35(H) 6 - 25 mg/dL [facility] Creatinine 2.16(H) 0.60 - 1.10 mg/dL [facility] Glucose 127 70 - 199 mg/dL [facility] Comment: Interpretive Data Fasting glucose >/= 126 mg/dl is diagnostic for diabetes. Fasting is defined as no caloric intake for at least 8 hours. Fasting glucose between 100 mg/dl to 125 mg/dl is diagnostic of prediabetes. In a patient with classic symptoms of hyperglycemia or hyperglycemic crisis, a random glucose >/= 200 mg/dl is diagnostic for diabetes. In the absence of unequivocal hyperglycemia, results should be confirmed by repeat testing. The classification and Diagnosis of Diabetes Diabetes Care 202; 46: S19-S40. Current interpretive data was last revised 2022. Calcium 9.4 8.5 - 10.3 mg/dL [facility] Blood 03/04/2025 5:43 AM CDT 03/04/2025 5:53 AM CDT Riccardo Gavin Soliz MD PhD LAB BLOOD ORDERAB LES Final Result [facility] Department [place] [address] * Wound Care (03/03/2025 11:54 PM CDT) Narrative George Vela MD - 03/03/2025 11:54 PM CDT George Vela MD 03/04/2025 12:03 AM Wound Care Date/Time: 03/03/2025 11:54 PM Performed by: George Vela MD Authorized by: George Vela MD Associated wounds: Wound 03/03/25 Laceration Head Posterior Consent: Consent obtained: Verbal Consent given by: Patient Risks, benefits, and alternatives were discussed: yes Risks discussed: Bleeding, infection, poor cosmetic result and pain Alternatives discussed: No treatment and delayed treatment [place] protocol: Procedure explained and questions answered to patient or proxy's satisfaction: yes Required blood products, implants, devices, and special equipment available: no Site/side marked: no Immediately prior to procedure, a time out was called: yes Patient identity confirmed: Verbally with patient and arm band Pre-procedure details: Preparation: Patient was prepped and draped in usual sterile fashion Sedation: Sedation type: None Anesthesia: Anesthesia method: None (Pain Consult recommended no Lidocaine local due to Bupivicaine epidural) Procedure details: Indications: open wounds Indications comment: 4cm x 2.5cm laceration on posterior scalp. Wound location: Scalp Scalp location: Occipital Wound age (days): 1 Wound surface area (sq cm): 10 Debridement performed: Yes (Gentle debridement with gauze and betadine) Skin layer closed with: Wound care performed: [place] applied Dressing: Dressing: Vaseline applied. No dressing. Post-procedure details: Procedure completion: Tolerated well, no immediate complications Comments: Discussed with ACCS Chief Dr. Hoff notifying them that it had been >24 hours since scalp laceration. [facility] approved bedside procedure with kristian and no local lidocaine. Patient's wound was cleaned with betadine and sterile water prior to the start of the procedure. See photos below: Before procedure: us George Vela MD IN CLINIC/BEDSI DE ORDERABLES Final Result * POCT glucose (03/03/2025 11:10 PM CDT) Glucose, POC 163 70 - 199 mg/dL Blood 03/03/2025 11:1 0 PM CDT 03/03/2025 11:10 PM CDT Riccardo Soliz MD PhD LAB POCT ORDERABL ES - DEVICE Final Result [facility] Department of Laboratories [place], [place] [id number] * XR Spine Thoracic 3 Vw (03/03/2025 11:08 PM CDT) Anatomical Region Laterality Modality Spine N/A Computed Radiogr aphy 03/04/2025 7:13 AM CDT Impressions 03/04/2025 7:13 AM CDT 1. Compression fractures of T6 and T7 better assessed on recent MRI. 2. Small right pneumothorax with right-sided thoracostomy catheter in place. 3. Multiple right-sided rib fractures better assessed on recent CT Electronically signed by: Willie Cardona MD Narrative 03/04/2025 7:13 AM CDT EXAMINATION: XR SPINE THORACIC 3 VIEWS HISTORY: upright iso fractures upright iso fractures COMPARISON: MRI from 03/03/2025 FINDINGS: A right-sided thoracostomy catheter is present. There is a small right pneumothorax. Multiple right-sided rib fractures are noted, better assessed on recent CT. Surgical material is present within the right midlung. Compression deformities of T6 and T7 better assessed on same day MRI. Procedure Note Willie Cardona MD - 03/04/2025 EXAMINATION: XR SPINE THORACIC 3 VIEWS HISTORY: upright iso fractures upright iso fractures COMPARISON: MRI from 03/03/2025 FINDINGS: A right-sided thoracostomy catheter is present. There is a small right pneumothorax. Multiple right-sided rib fractures are noted, better assessed on recent CT. Surgical material is present within the right midlung. Compression deformities of T6 and T7 better assessed on same day MRI. IMPRESSION: 1. Compression fractures of T6 and T7 better assessed on recent MRI. 2. Small right pneumothorax with right-sided thoracostomy catheter in place. 3. Multiple right-sided rib fractures better assessed on recent CT Electronically signed by: Willie Cardona MD Riccardo Soliz MD PhD IMG XR PROCEDURES Final Result * MRI Thoracic Spine WO Contrast (03/03/2025 10:44 PM CDT) Anatomical Region Laterality Modality Spine N/A Magnetic Resonan ce 03/04/2025 10:5 7 AM CDT Impressions 03/04/2025 10:58 AM CDT 1. Multilevel degenerative disc disease of the thoracic spine with chronic mild compression fractures T5 through T10. No spinal canal stenosis or cord compression. Dictated by: Oma Taveras M.D. The radiology attending physician has personally reviewed this study, and had reviewed and/or edited this written report and agrees with it. Electronically signed by: Cherelle Hawkins M.D. Narrative 03/04/2025 10:58 AM CDT EXAMINATION: Magnetic resonance imaging (MRI) of the thoracic spine without contrast HISTORY: 64-year-old female with fall 03/02 with concern for myelopathy. TECHNIQUE: Multiplanar multi-weighted MRI of the thoracic spine was performed without intravenous contrast using the standard protocol. COMPARISON: CT cervical and thoracic spine 03/02/2025. FINDINGS: There is exaggerated kyphosis of the thoracic spine. The spinal cord demonstrates normal signal intensity on all sequences. There is severe multilevel degenerative disc disease with diffuse disc height loss. There are chronic mild compression fractures of T5 - T10 at the apex of the thoracic curvature with no marrow edema. There is subcutaneous soft tissue edema. The aorta is normal. No spinal canal stenosis or cord edema. Known left transverse process fractures of the thoracic spine are better seen on prior CT cervical and thoracic spine 03/02/2025. Procedure Note Cherelle Hawkins MD - 03/04/2025 EXAMINATION: Magnetic resonance imaging (MRI) of the thoracic spine without contrast HISTORY: 64-year-old female with fall 03/02 with concern for myelopathy. TECHNIQUE: Multiplanar multi-weighted MRI of the thoracic spine was performed without intravenous contrast using the standard protocol. COMPARISON: CT cervical and thoracic spine 03/02/2025. FINDINGS: There is exaggerated kyphosis of the thoracic spine. The spinal cord demonstrates normal signal intensity on all sequences. There is severe multilevel degenerative disc disease with diffuse disc height loss. There are chronic mild compression fractures of T5 - T10 at the apex of the thoracic curvature with no marrow edema. There is subcutaneous soft tissue edema. The aorta is normal. No spinal canal stenosis or cord edema. Known left transverse process fractures of the thoracic spine are better seen on prior CT cervical and thoracic spine 03/02/2025. IMPRESSION: 1. Multilevel degenerative disc disease of the thoracic spine with chronic mild compression fractures T5 through T10. No spinal canal stenosis or cord compression. Dictated by: Oma Taveras M.D. The radiology attending physician has personally reviewed this study, and had reviewed and/or edited this written report and agrees with it. Electronically signed by: Cherelle Hawkins M.D. Yaritza Agarwal MD IMG MRI PROCEDURES [employer] Result * MRI Cervical Spine WO Contrast (03/03/2025 10:44 PM CDT) Anatomical Region Laterality Modality Spine N/A Magnetic Resonan ce 03/04/2025 10:5 4 AM CDT Impressions 03/04/2025 10:58 AM CDT 1. Posterior subcutaneous soft tissue injury without underlying acute injury of the cervical spine. 2. Multilevel degenerative disc and joint disease, most notable at C4-C5 with moderate canal stenosis and mass effect on the spinal cord. No spinal cord edema. Dictated by: Oma Taveras M.D. The radiology attending physician has personally reviewed this study, and had reviewed and/or edited this written report and agrees with it. Electronically signed by: Cherelle Hawkins M.D. Narrative 03/04/2025 10:58 AM CDT EXAMINATION: Magnetic resonance imaging (MRI) of the cervical spine without contrast HISTORY: 64-year-old female with ground-level fall 03/02 with fall down stairs with concern for myelopathy. TECHNIQUE: Multiplanar multi-weighted MRI of the cervical spine was performed without intravenous contrast using the standard protocol. COMPARISON: CT head and cervical spine 03/02/2025. FINDINGS: There is mild anterolisthesis of C3 on C4 and C6 on C7 No marrow edema. There are Modic type II degenerative fatty changes from C3-C6. The craniocervical junction is normal. The visualized portions of the skull base and the posterior fossa are normal. There is no vertebral body fracture. The spinal cord demonstrates normal signal intensity on all sequences. There is severe disk degeneration greatest at C2-C6. There are no annular fissures identified. Occipital scalp and suboccipital subcutaneous edema in the posterior upper neck and extending into thoracic soft tissues. Normal signal voids are present in the vertebral arteries. C2-C3: Mild disc bulge There is moderate left facet arthropathy. There is mild bilateral uncovertebral joint disease. There is moderate right neuroforaminal stenosis. There is no spinal canal stenosis. C3-C4: Posterior disc bulge. There is moderate right and severe left facet arthropathy. There is moderate bilateral uncovertebral joint disease. There is moderate right neuroforaminal stenosis. There is mild spinal canal stenosis. C4-C5: Posterior disc bulge. There is mild right and moderate left facet arthropathy. There is severe bilateral uncovertebral joint disease. There is moderate right and severe left neuroforaminal stenosis. There is moderate spinal canal stenosis with mass effect on the spinal cord without cord signal abnormality. C5-C6: Mild disc bulge. There is mild right and moderate left facet arthropathy. There is severe bilateral uncovertebral joint disease. There is moderate bilateral bilateral neuroforaminal stenosis. There is mild to moderate spinal canal stenosis. C6-C7: Minimal bulge. There is mild bilateral facet arthropathy. There is mild bilateral uncovertebral joint disease. There is no neuroforaminal stenosis. There is no spinal canal stenosis. C7-T1: The disk is normal in configuration. There is mild bilateral facet arthropathy. There is mild bilateral uncovertebral joint disease. There is no neuroforaminal stenosis. There is no spinal canal stenosis. Known left transverse process fracture and rib fractures at T1 is better seen on prior CT. Procedure Note VoCherelle MD - 03/04/2025 EXAMINATION: Magnetic resonance imaging (MRI) of the cervical spine without contrast HISTORY: 64-year-old female with ground-level fall 03/02 with fall down stairs with concern for myelopathy. TECHNIQUE: Multiplanar multi-weighted MRI of the cervical spine was performed without intravenous contrast using the standard protocol. COMPARISON: CT head and cervical spine 03/02/2025. FINDINGS: There is mild anterolisthesis of C3 on C4 and C6 on C7 No marrow edema. There are Modic type II degenerative fatty changes from C3-C6. The craniocervical junction is normal. The visualized portions of the skull base and the posterior fossa are normal. There is no vertebral body fracture. The spinal cord demonstrates normal signal intensity on all sequences. There is severe disk degeneration greatest at C2-C6. There are no annular fissures identified. Occipital scalp and suboccipital subcutaneous edema in the posterior upper neck and extending into thoracic soft tissues. Normal signal voids are present in the vertebral arteries. C2-C3: Mild disc bulge There is moderate left facet arthropathy. There is mild bilateral uncovertebral joint disease. There is moderate right neuroforaminal stenosis. There is no spinal canal stenosis. C3-C4: Posterior disc bulge. There is moderate right and severe left facet arthropathy. There is moderate bilateral uncovertebral joint disease. There is moderate right neuroforaminal stenosis. There is mild spinal canal stenosis. C4-C5: Posterior disc bulge. There is mild right and moderate left facet arthropathy. There is severe bilateral uncovertebral joint disease. There is moderate right and severe left neuroforaminal stenosis. There is moderate spinal canal stenosis with mass effect on the spinal cord without cord signal abnormality. C5-C6: Mild disc bulge. There is mild right and moderate left facet arthropathy. There is severe bilateral uncovertebral joint disease. There is moderate bilateral bilateral neuroforaminal stenosis. There is mild to moderate spinal canal stenosis. C6-C7: Minimal bulge. There is mild bilateral facet arthropathy. There is mild bilateral uncovertebral joint disease. There is no neuroforaminal stenosis. There is no spinal canal stenosis. C7-T1: The disk is normal in configuration. There is mild bilateral facet arthropathy. There is mild bilateral uncovertebral joint disease. There is no neuroforaminal stenosis. There is no spinal canal stenosis. Known left transverse process fracture and rib fractures at T1 is better seen on prior CT. IMPRESSION: 1. Posterior subcutaneous soft tissue injury without underlying acute injury of the cervical spine. 2. Multilevel degenerative disc and joint disease, most notable at C4-C5 with moderate canal stenosis and mass effect on the spinal cord. No spinal cord edema. Dictated by: Oma Taveras M.D. The radiology attending physician has personally reviewed this study, and had reviewed and/or edited this written report and agrees with it. Electronically signed by: Cherelle Hawkins M.D. Yaritza Agarwal MD [facility] MRI PROCEDURES Sunita l Result * (ABNORMAL) eGFR (03/03/2025 7:44 PM CDT) eGFR 25(L) >=60 mL/min/1. 73 m2 Comment: Interpretive Data Reference Interval Normal >/= 90 mL/min/1.73m2 Mildly decreased* 60 - 89 mL/min/1.73m2 Mildly to moderately decreased 45 - 59 mL/min/1.73m2 Moderately to severely decreased 30 - 44 mL/min/1.73m2 Severely decreased 15 - 29 mL/min/1.73m2 Kidney Failure < 15 mL/min/1.73m2 *Relative to young adult level Estimated glomerular filtration rate is determined by the 2020 CKD-EPI equation recommended by the National Kidney Foundation (A Unifying Approach to GFR Estimation: Recommendations of the NKF-ASK Task Force on Reassessing the Inclusion of Race in Diagnosing Kidney Disease, JASN 2020). The CKD-EPI equation should not be used for patients with unstable renal function and has not been validated in children and those over 70. Current interpretive data was last reviewed 2021. Blood 03/03/2025 7:44 PM CDT 03/03/2025 7:57 PM CDT us Riccardo Soliz MD PhD LAB BLOOD ORDERAB LES Final Result [facility] Department [place] [address] * (ABNORMAL) Differential, auto (03/03/2025 7:44 PM CDT) Pathologist [facility] Neutrophil abs 14.26(H) 1.50 - 6.50 K/cumm Imm gran abs 0.12(H) 0.00 - 0.10 K/cumm [facility] Lymphocyte abs 2.13 0.80 - 3.30 K/cumm [facility] Monocyte abs 1.83(H) 0.20 - 0.80 K/cumm [facility] Eosinophil abs 0.01 0.00 - 0.50 K/cumm [facility] Basophil abs 0.03 0.00 - 0.10 K/cumm [facility] Neutrophil pct 77.4 % [facility] Comment: Interpretive Data Percent cell count reference ranges are not reported, since discordance with absolute values may lead to misinterpretation of CBC data. Current Interpretive Data was last revised on 2017. Imm gran pct 0.7 % [facility] Comment: Interpretive Data Percent cell count reference ranges are not reported, since discordance with absolute values may lead to misinterpretation of CBC data. Current Interpretive Data was last revised on 2017. Lymphocyte pct 11.6 % [facility] Comment: Interpretive Data Percent cell count reference ranges are not reported, since discordance with absolute values may lead to misinterpretation of CBC data. Current Interpretive Data was last revised on 2017. Monocyte pct 10.0 % [facility] Comment: Interpretive Data Percent cell count reference ranges are not reported, since discordance with absolute values may lead to misinterpretation of CBC data. Current Interpretive Data was last revised on 2017. Eosinophil pct 0.1 % [facility] Comment: Interpretive Data Percent cell count reference ranges are not reported, since discordance with absolute values may lead to misinterpretation of CBC data. Current Interpretive Data was last revised on 2017. Basophil pct 0.2 % [facility] Comment: Interpretive Data Percent cell count reference ranges are not reported, since discordance with absolute values may lead to misinterpretation of CBC data. Current Interpretive Data was last revised on 2017. Blood 03/03/2025 7:44 PM CDT 03/03/2025 8:18 PM CDT Riccardoneela Soliz MD PhD LAB BLOOD ORDERAB LES Final Result [facility] Department [place] [address] * (ABNORMAL) CBC with auto differential (03/03/2025 7:44 PM CDT) WBC 18.38(H) 3.80 - 9.90 K/cumm Hgb 10.0(L) 11.9 - 15.5 g/dL [facility] Hct 29.5(L) 35.6 - 45.5 % [facility] Plt 221 150 - 400 K/cumm [facility] MPV 10.4 9.1 - 12.3 fL [facility] RBC 3.34(L) 3.90 - 5.20 M/cumm [facility] MCV 88.3 81.3 - 96.4 fL [facility] MCH 29.9 27.1 - 33.3 pg [facility] MCHC 33.9 32.3 - 35.7 g/dL [facility] RDW CV 14.0 11.1 - 14.9 % [facility] RDW SD 45.3 35.7 - 48.1 fL [facility] NRBC abs 0.00 0.00 - 0.01 K/cumm [facility] Blood 03/03/2025 7:44 PM CDT 03/03/2025 8:18 PM CDT Riccardo Soliz MD PhD LAB BLOOD ORDERAB LES Final Result [facility] Department [place] [address] * (ABNORMAL) Basic metabolic panel (03/03/2025 7:44 PM CDT) Sodium 129(L) 135 - 145 mmol/L Potassium, pl 5.3(H) 3.3 - 4.9 mmol/L [facility] Comment:Hemolyzed; Potassium value may be falsely elevated by as much as 0.3-0.5 mmol/L. Suggest redraw and reanalysis. Chloride 91(L) 97 - 110 mmol/L [facility] CO2 26 22 - 32 mmol/L [facility] Anion gap 12 2 - 15 mmol/L [facility] BUN 34(H) 6 - 25 mg/dL [facility] Creatinine 2.13(H) 0.60 - 1.10 mg/dL [facility] Comment:Repeated and Verifie d Glucose 144 70 - 199 mg/dL [facility] Comment: Interpretive Data Fasting glucose >/= 126 mg/dl is diagnostic for diabetes. Fasting is defined as no caloric intake for at least 8 hours. Fasting glucose between 100 mg/dl to 125 mg/dl is diagnostic of prediabetes. In a patient with classic symptoms of hyperglycemia or hyperglycemic crisis, a random glucose >/= 200 mg/dl is diagnostic for diabetes. In the absence of unequivocal hyperglycemia, results should be confirmed by repeat testing. The classification and Diagnosis of Diabetes Diabetes Care 2021; 46: S19-S40. Current interpretive data was last revised 2022. Calcium 9.4 8.5 - 10.3 mg/dL [facility] Blood 03/03/2025 7:44 PM CDT 03/03/2025 7:57 PM CDT us Riccardo Soliz MD PhD LAB BLOOD ORDERAB LES Final Result Performing Organization Address [facility] Co de Phone Number [facility] Department [place] [address] * POCT glucose (03/03/2025 7:27 PM CDT) Glucose, POC 182 70 - 199 mg/dL Blood 03/03/2025 7:27 PM CDT 03/03/2025 7:27 PM CDT us Riccardo Soliz MD PhD LAB POCT ORDERABL ES - DEVICE Final Result Performing Organization Address [facility] de Phone Number [facility] Department [place] [address] * Critical Care (03/03/2025 7:19 PM CDT) Narrative Nick Pollack MD - 03/03/2025 7:19 PM CDT Nick Pollack MD 03/04/2025 5:02 AM Critical Care Performed by: Nick Pollack MD Authorized by: Nick Pollack MD CRITICAL CARE: Team: SICU RED Shift: PM Level of Billing: Critical Care My time spent with this patient was 30 minutes: Critical Provider Statement: I have seen and examined the patient on this day of service. I have reviewed and confirmed the history, physical exam, laboratory and radiologic data as documented in the signed ICU note. I have reviewed and discussed my treatment plan with the ICU team and other medical/outplacement consultant staff, making frequent assessments and decisions regarding this patient's complex medical care. Critical Care time was exclusive of time spent performing separately billed procedures, treating other patients, and teaching. This time was in addition to and separate from critical care provided by other practitioners in my group on this day of service. Critical Care was necessary to treat or prevent imminent or life-threatening deterioration of the following conditions: Acute pain/acute postoperative pain Spinal cord injury/spine fracture and Traumatic brain injury This time was spent by me doing the following: Acute pain control Active and frequent reassessment of respiratory status and oxygen requirements and Supplemental oxygen via mask I spent time reviewing and interpreting data from bedside monitors, laboratory results, and imaging, I spent time discussing the management of this critically ill patient with consultants and the medical staff and I spent time documenting in the medical record Nick Pollack MD IN CLINIC/BEDSIDE JACY SANG Final Result * ECG 12 lead (03/03/2025 5:23 PM CDT) Ventricular Rate EKG/Min 79 BPM [facility] Atrial Rate 79 BPM [facility] MS-Interval (MSEC) 136 ms [facility] QRS-Interval (MSEC) 72 ms [facility] QT-Interval (MSEC) 406 ms [facility] QTc 465 ms [facility] P [place] 83 degrees [facility] R [place] 85 degrees [facility] T [place] 80 degrees [facility] Diagnosis Normal sinus rhythm Septal infarct , age undetermined Abnormal ECG No previous ECGs available Confirmed by FARHAD JONES M.D ([id number]) on 03/04/2025 3:25:39 PM [facility] 03/03/2025 5:23 PM CDT 03/04/2025 3:25 PM CDT Mai Natarajan [employer] ECG ORDERABLES Final Re sult Performing Organization Address City/[facility]/ZIP Co de Phone Number [facility] * POCT glucose (03/03/2025 3:20 PM CDT) Glucose, POC 196 70 - 199 mg/dL Blood 03/03/2025 3:20 PM CDT 03/03/2025 3:20 PM CDT Riccardo Soliz MD PhD LAB POCT ORDERABL ES - DEVICE Final Result Performing Organization Address City/[facility]/ZIP Co de Phone Number [facility] Department [place] [address] * POCT glucose (03/03/2025 11:34 AM CDT) Glucose, POC 178 70 - 199 mg/dL Blood 03/03/2025 11:3 4 AM CDT 03/03/2025 11:34 AM CDT Riccardoneela Soliz MD PhD LAB POCT ORDERABL ES - DEVICE Final Result [facility] Department [place] [address] * Critical Care (03/03/2025 8:26 AM CDT) Narrative Darien Oliver MD - 03/03/2025 8:26 AM CDT Darien Oliver MD 03/04/2025 11:12 AM Critical Care Performed by: Darien Olievr MD Authorized by: Darien Oliver MD CRITICAL CARE: Team: SICU RED Shift: AM Level of Billing: Critical Care My time spent with this patient was 50 minutes: Critical Provider Statement: I have seen and examined the patient on this day of service. I have reviewed and confirmed the history, physical exam, laboratory and radiologic data as documented in the signed ICU note. I have reviewed and discussed my treatment plan with the ICU team and other medical/outplacement consultant staff, making frequent assessments and decisions regarding this patient's complex medical care. Critical Care time was exclusive of time spent performing separately billed procedures, treating other patients, and teaching. This time was in addition to and separate from critical care provided by other practitioners in my group on this day of service. Critical Care was necessary to treat or prevent imminent or life-threatening deterioration of the following conditions: Acute pain/acute postoperative pain Acute electrolyte derangement Acute blood loss anemia Hemo/pneumothorax and Multiple rib fractures This time was spent by me doing the following: Resuscitation with fluids, Serial bedside patient exams and Serial laboratory checks Acute pain control and Frequent neurologic exams Active and frequent reassessment of respiratory status and oxygen requirements and Incentive spirometry, pulmonary toilet Active and frequent monitoring of intake/output and volumen status Active repletion of electrolytes Thoracostomy tube management I spent time reviewing and interpreting data from bedside monitors, laboratory results, and imaging, I spent time discussing the management of this critically ill patient with consultants and the medical staff and I spent time documenting in the medical record us Darien Oliver MD IN CLINIC/BEDSIDE ORDERABLES Final Result * POCT glucose (03/03/2025 7:10 AM CDT) Glucose, POC 142 70 - 199 mg/dL Blood 03/03/2025 7:10 AM CDT 03/03/2025 7:10 AM CDT us Riccardo Soliz MD PhD LAB POCT ORDERABL ES - DEVICE Final Result [facility] Department [place] [address] * eGFR (03/03/2025 3:40 AM CDT) eGFR 63 >=60 mL/min/1. 73 m2 Comment: Interpretive Data Reference Interval Normal >/= 90 mL/min/1.73m2 Mildly decreased* 60 - 89 mL/min/1.73m2 Mildly to moderately decreased 45 - 59 mL/min/1.73m2 Moderately to severely decreased 30 - 44 mL/min/1.73m2 Severely decreased 15 - 29 mL/min/1.73m2 Kidney Failure < 15 mL/min/1.73m2 *Relative to young adult level Estimated glomerular filtration rate is determined by the 2020 CKD-EPI equation recommended by the National Kidney Foundation (A Unifying Approach to GFR Estimation: Recommendations of the NKF-ASK Task Force on Reassessing the Inclusion of Race in Diagnosing Kidney Disease, JASN 202). The CKD-EPI equation should not be used for patients with unstable renal function and has not been validated in children and those over 70. Current interpretive data was last reviewed 2021. Blood 03/03/2025 3:40 AM CDT 03/03/2025 4:13 AM CDT us Riccardo Soliz MD PhD LAB BLOOD [place] [address] * (ABNORMAL) Iron profile w/ IBC (03/03/2025 3:40 AM CDT) [facility] Iron 30(L) 35 - 145 mcg/dL TIBC 225(L) 250 - 400 mcg/dL [facility] Transferrin saturation 13(L) 20 - 50 % [facility] Blood 03/03/2025 3:40 AM CDT 03/03/2025 3:50 AM CDT us Riccardo Soliz MD PhD LAB BLOOD ORDERAB LES Final Result Performing Organization Address City/[facility]/ZIP Co de Phone Number [facility] [place] [address] * (ABNORMAL) Phosphorus (03/03/2025 3:40 AM CDT) [facility] Phosphorus, pl 6.6(H) 2.3 - 4.5 mg/dL Blood 03/03/2025 3:40 AM CDT 03/03/2025 3:50 AM CDT us Riccardo Soliz MD PhD LAB BLOOD ORDER[place] [address] * Magnesium (03/03/2025 3:40 AM CDT) [facility] Magnesium 2.0 1.4 - 2.5 mg/dL Blood 03/03/2025 3:40 AM CDT 03/03/2025 3:50 AM CDT us Riccardo Soliz MD PhD LAB BLOOD ORDERAB LES Final Result Performing Organization Address City/[facility]/ZIP Co de Phone Number [facility] Department [place] [address] * Folate (03/03/2025 3:40 AM CDT) [facility] Folic acid >20.0 >=5.0 ng/mL Blood 03/03/2025 3:40 AM CDT 03/03/2025 3:50 AM CDT us Riccardo Soliz MD PhD LAB BLOOD ORDERAB LES Final Result Performing Organization Address [facility] Co de Phone Number [facility] [place] [address] * (ABNORMAL) Vitamin B12 (03/03/2025 3:40 AM CDT) [facility] Vitamin B12 1,286(H) 230 - 1,250 pg/mL Blood 03/03/2025 3:40 AM CDT 03/03/2025 3:50 AM CDT us Riccardo Soliz MD PhD LAB BLOOD ORDERAB LES Final Result Performing Organization Address City/[facility] Co de Phone Number [facility] [place] [address] * (ABNORMAL) Basic metabolic panel (03/03/2025 3:40 AM CDT) [facility] Sodium 127(L) 135 - 145 mmol/L Potassium, pl 4.7 3.3 - 4.9 mmol/L [facility] Chloride 90(L) 97 - 110 mmol/L [facility] CO2 27 22 - 32 mmol/L [facility] Anion gap 10 2 - 15 mmol/L [facility] BUN 18 6 - 25 mg/dL [facility] Creatinine 0.99 0.60 - 1.10 mg/dL [facility] Glucose 155 70 - 199 mg/dL [facility] Comment: Interpretive Data Fasting glucose >/= 126 mg/dl is diagnostic for diabetes. Fasting is defined as no caloric intake for at least 8 hours. Fasting glucose between 100 mg/dl to 125 mg/dl is diagnostic of prediabetes. In a patient with classic symptoms of hyperglycemia or hyperglycemic crisis, a random glucose >/= 200 mg/dl is diagnostic for diabetes. In the absence of unequivocal hyperglycemia, results should be confirmed by repeat testing. The classification and Diagnosis of Diabetes Diabetes Care 2021; 46: S19-S40. Current interpretive data was last revised 2022. Calcium 9.0 8.5 - 10.3 mg/dL [facility] Blood 03/03/2025 3:40 AM CDT 03/03/2025 3:50 AM CDT Riccardo Soliz MD PhD LAB BLOOD ORDERAB LES Final Result Performing Organization Address [facility] Co de Phone Number [facility] Department [place] [address] * HIV 1/2 Antibody plus p24 Antigen Blood (03/03/2025 3:38 AM CDT) [facility] HIV 1/2 ab + p24 ag Nonreactive Nonreactive Comment:Nonreactive for HIV- 1 antigen and HIV-1/HIV-2 antibodies. No laboratory evidence of HIV infection. If acute HIV infection is suspected, consider testing for HIV-1 RNA. Current interpretive data was last revised on 22. Blood 03/03/2025 3:38 AM CDT 03/03/2025 4:12 AM CDT Riccardo Soliz MD PhD LAB MICROBIOLOGY - GENERAL ORDERABLES Final Result Performing Organization Address City/[facility]/ZIP Co de Phone Number [facility] Department [place] [address] * POCT glucose (03/03/2025 3:38 AM CDT) Pathologist [facility] Glucose, POC 150 70 - 199 mg/dL Blood 03/03/2025 3:38 AM CDT 03/03/2025 3:38 AM CDT Riccardo Soliz MD PhD LAB POCT ORDERABL ES - DEVICE Final Result Performing Organization Address [facility] Co de Phone Number [facility] [employer] [place] [place] [address] * Hepatitis C antibody Blood (03/03/2025 3:38 AM CDT) [facility] Hep C Ab Nonreactive Nonreactive Comment:Antibodies to HCV no t detected. Does NOT exclude the possibility of recent exposure to HCV. Current interpretive data was last revised on 22 Blood 03/03/2025 3:38 AM CDT 03/03/2025 4:12 AM CDT Riccardo Soliz MD PhD LAB MICROBIOLOGY - GENERAL ORDERABLES Final Result Performing Organization Address [facility] de Phone Number [facility] Department of [facility] [employer] [place] [place] [address] * (ABNORMAL) Hemoglobin and hematocrit (03/03/2025 3:38 AM CDT) [facility] Hgb 11.9 11.9 - 15.5 g/dL Hct 35.1(L) 35.6 - 45.5 % [facility] Blood 03/03/2025 3:38 AM CDT 03/03/2025 4:13 AM CDT Teodoro Mckeon MD LAB BLOOD ORDERABLES F inal Result Performing Organization Address City/[facility] Co de Phone Number [facility] [employer] [place] [place] [address] * RPR Blood (03/03/2025 3:38 AM CDT) RPR Nonreactive Nonreactive Blood 03/03/2025 3:38 AM CDT 03/03/2025 4:12 AM CDT Riccardo Soliz MD PhD LAB MICROBIOLOGY - GENERAL ORDERABLES Final Result Performing Organization Address [facility] Co de Phone Number [facility] Department of [facility] [facility] [employer] [place] [place] [address] * (ABNORMAL) Vitamin B1 (03/03/2025 3:38 AM CDT) Pathologist [facility] Thiamine (Vit B1) 183(H) 70 - 180 nmol/L [place] [facility] Comment: ADDITIONAL INFORMATION This test was developed and its performance characteristics determined by [facility] in a manner consistent with CLIA requirements. This test has not been cleared or approved by the U.S. Food and Drug Administration. Test Performed by: [facility] [place] [address] Prefabricator: Dariana Bob Ph.D.; CLIA# [id number] Blood 03/03/2025 3:38 AM CDT 03/03/2025 4:40 AM CDT Riccardo Soliz MD PhD LAB BLOOD ORDERAB LES Final Result Performing Organization Address [facility] Co de Phone Number [facility] [employer] [place] [place] [address] [facility] * MS CRITICAL CARE ILL/INJURED PATIENT INIT 30-74 MIN (03/03/2025 2:24 AM CDT) Narrative Evelyn Rehman MD - 03/03/2025 2:24 AM CDT Evelyn Rehman MD 03/03/2025 2:25 AM Critical Care Performed by: Evelyn Rehman MD Authorized by: Evelyn Rehman MD Critical care provider statement: As reflected in the history, physical exam, orders, notes, and/or MDM, I was personally present while the patient was critically ill and provided critical care services for 35 minutes, excluding time involved in separately billable procedures. Critical care was necessary to treat or prevent imminent or life-threatening deterioration of the following condition(s): hypoxic respiratory failure and severe respiratory condition multiple rib fractures, hemo/pneumothorax and severe traumatic condition Critical care was time spent by me providing the following: continuous telemetry, continuous pulse oximetry, continuous capnography and serial bedside patient exams supplemental oxygen acute fracture care acute pain control I provided emergent necessary critical care medicine services to this patient. I ordered and reviewed test results and/or imaging studies. I spent time discussing the management of this critically ill patient with consultants and the medical staff. I spent time discussing the management and therapeutic options for this critically ill patient with the patient themselves or with the appropriate designated surrogate decision-maker. I spent time documenting in the medical record. I admitted this patient to an Intensive Care unit (ICU) and discussed management with the admitting team. us Evelyn Rehman MD IN CLINIC/BEDSIDE ORD ERABLES Final Result * CTA Head Neck W WO Contrast (03/03/2025 1:43 AM CDT) Anatomical Region Laterality Modality Head and Neck N/A Computed Tomogra phy 03/03/2025 3:53 AM CDT Impressions 03/03/2025 8:48 AM CDT 1. No evidence of blunt cerebrovascular injury. No acute intracranial abnormality. 2. Chronic severe stenosis of the right common carotid artery at the bifurcation with a severely diminutive internal carotid artery until reconstitution at the [place]. 3. 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 4. Left transverse process fracture at C7 vertebral body. 5. Multiple right-sided rib fractures and partially imaged, demonstrated right pneumothorax. Dictated by: Daniel Vogt M.D. The radiology attending physician has personally reviewed this study, and had reviewed and/or edited this written report and agrees with it. Electronically signed by: Mk Rutledge M.D. Narrative 03/03/2025 8:48 AM CDT EXAMINATION: 1. Computed tomography angiography (CTA) of the head without and with contrast 2. Computed tomography angiography (CTA) of the neck with contrast HISTORY: Fall downstairs with 1st rib fracture. Evaluate for blunt cerebral vascular injury TECHNIQUE: CT of the head was performed with images acquired from skull base to vertex without intravenous contrast. Computed tomographic angiography was obtained from the aortic arch to the vertex following the uneventful administration of intravenous contrast. 3D images of the CTA were generated on a dedicated workstation/windows server support technician. Contrast information: 80 mL Optiray-350 IV COMPARISON: CT head and C-spine 03/02/2025 at 9:09 PM FINDINGS: HEAD: Hematomas along the right parietal/occipital scalp, decreased from prior exam. There is no acute intracranial hemorrhage. Ventricles are of normal size and morphology. No mass effect or midline shift is present. The blackburn-white matter differentiation is normal. The visualized portions of the orbits are normal. The visualized portions of the mastoids are normal. The visualized portions of the paranasal sinuses are normal. No fractures of the skull are identified. NECK: Scattered subcentimeter lymph nodes are seen in the neck. None are pathologically enlarged. The muscles of the neck are normal. Fascial planes are preserved and the deep spaces of the neck are normal. The visualized airway is widely patent. The base of the skull and the temporal bones are normal. Limited views of the brain including the cerebellum and brainstem are normal. The visualized portions of the orbits are normal. The spinal canal is normal in caliber. Intervertebral disk heights are normal. Multilevel moderate to severe neural foraminal stenosis. For reference, severe neural foraminal stenosis on the left at C4-C5 and bilaterally at C5-C6. Limited examination of the superior thorax shows no pulmonary infiltrate, suspicious nodules, or pleural effusions. Moderate to severe central canal stenosis at C2-C3 and C4-C5. Partially imaged right pneumothorax. Right chest tube. Right 1st, 2nd, and 4th through 9th rib fractures with subcutaneous emphysema on the right chest wall, better characterized on comparison chest imaging. Left transverse process fracture of the C7 vertebral body. Multiple transverse process fractures of the thoracic spine are detailed on comparison thoracic spine imaging. CTA: Calcifications of the bifurcation of the common carotid resulting in approximately 90% stenosis of the internal carotid artery which is severely diminutive along its course until collateralization and reconstitution at the [place]. 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 Calcifications of the left carotid bifurcation resulting in approximately 50% narrowing of the left common carotid artery. The visualized aortic arch appears normal with normal configuration of the great vessels. The innominate artery and both subclavian arteries are normal in course and caliber. The iolrxq-[id number] is complete. Otherwise, the anterior and middle cerebral arteries are normal. The vertebral arteries are codominant. The basilar artery is normal. The posterior cerebral arteries are normal. Procedure Note Mk Rutledge MD - 03/03/2025 EXAMINATION: 1. Computed tomography angiography (CTA) of the head without and with contrast 2. Computed tomography angiography (CTA) of the neck with contrast HISTORY: Fall downstairs with 1st rib fracture. Evaluate for blunt cerebral vascular injury TECHNIQUE: CT of the head was performed with images acquired from skull base to vertex without intravenous contrast. Computed tomographic angiography was obtained from the aortic arch to the vertex following the uneventful administration of intravenous contrast. 3D images of the CTA were generated on a dedicated workstation/windows server support technician. Contrast information: 80 mL Optiray-350 IV COMPARISON: CT head and C-spine 03/02/2025 at 9:09 PM FINDINGS: HEAD: Hematomas along the right parietal/occipital scalp, decreased from prior exam. There is no acute intracranial hemorrhage. Ventricles are of normal size and morphology. No mass effect or midline shift is present. The blackburn-white matter differentiation is normal. The visualized portions of the orbits are normal. The visualized portions of the mastoids are normal. The visualized portions of the paranasal sinuses are normal. No fractures of the skull are identified. NECK: Scattered subcentimeter lymph nodes are seen in the neck. None are pathologically enlarged. The muscles of the neck are normal. Fascial planes are preserved and the deep spaces of the neck are normal. The visualized airway is widely patent. The base of the skull and the temporal bones are normal. Limited views of the brain including the cerebellum and brainstem are normal. The visualized portions of the orbits are normal. The spinal canal is normal in caliber. Intervertebral disk heights are normal. Multilevel moderate to severe neural foraminal stenosis. For reference, severe neural foraminal stenosis on the left at C4-C5 and bilaterally at C5-C6. Limited examination of the superior thorax shows no pulmonary infiltrate, suspicious nodules, or pleural effusions. Moderate to severe central canal stenosis at C2-C3 and C4-C5. Partially imaged right pneumothorax. Right chest tube. Right 1st, 2nd, and 4th through 9th rib fractures with subcutaneous emphysema on the right chest wall, better characterized on comparison chest imaging. Left transverse process fracture of the C7 vertebral body. Multiple transverse process fractures of the thoracic spine are detailed on comparison thoracic spine imaging. CTA: Calcifications of the bifurcation of the common carotid resulting in approximately 90% stenosis of the internal carotid artery which is severely diminutive along its course until collateralization and reconstitution at the [place]. 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 Calcifications of the left carotid bifurcation resulting in approximately 50% narrowing of the left common carotid artery. The visualized aortic arch appears normal with normal configuration of the great vessels. The innominate artery and both subclavian arteries are normal in course and caliber. The [id number]-jq-[id number] is complete. Otherwise, the anterior and middle cerebral arteries are normal. The vertebral arteries are codominant. The basilar artery is normal. The posterior cerebral arteries are normal. IMPRESSION: 1. No evidence of blunt cerebrovascular injury. No acute intracranial abnormality. 2. Chronic severe stenosis of the right common carotid artery at the bifurcation with a severely diminutive internal carotid artery until reconstitution at the [place]. 3. 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 4. Left transverse process fracture at C7 vertebral body. 5. Multiple right-sided rib fractures and partially imaged, demonstrated right pneumothorax. Dictated by: Daniel Vogt M.D. The radiology attending physician has personally reviewed this study, and had reviewed and/or edited this written report and agrees with it. Electronically signed by: Mk Rutledge M.D. Yaritza Agarwal MD IM CT PROCEDURES Final Result * XR Chest 1 Vw Portable (03/03/2025 12:52 AM CDT) Anatomical Region Laterality Modality Body, Chest N/A Computed Radiogr aphy 03/03/2025 1:49 AM CDT Impressions 03/03/2025 12:59 PM CDT Comparison is made to chest radiograph 03/02/2025 Interval placement of right chest tube at the right mid hemithorax which angles down toward the right lung base. Suture material projects over the right midlung, likely from prior wedge resection. Interval decrease in size of right pneumothorax with trace residual apical component. Normal cardiomediastinal silhouette. No pulmonary consolidation, pleural effusion, or left pneumothorax. Multiple right-sided rib fractures better appreciated on prior CT. Dictated by: Rebeca Camargo MD The radiology attending physician has personally reviewed this study, and had reviewed and/or edited this written report and agrees with it. Electronically signed by: Boogie Lewis M.D. Narrative 03/03/2025 12:59 PM CDT EXAMINATION: 1 view chest radiograph Procedure Note Boogie Lewis MD - 03/03/2025 EXAMINATION: 1 view chest radiograph IMPRESSION: Comparison is made to chest radiograph 03/02/2025 Interval placement of right chest tube at the right mid hemithorax which angles down toward the right lung base. Suture material projects over the right midlung, likely from prior wedge resection. Interval decrease in size of right pneumothorax with trace residual apical component. Normal cardiomediastinal silhouette. No pulmonary consolidation, pleural effusion, or left pneumothorax. Multiple right-sided rib fractures better appreciated on prior CT. Dictated by: Rebeca Camargo MD The radiology attending physician has personally reviewed this study, and had reviewed and/or edited this written report and agrees with it. Electronically signed by: Boogie Lewis M.D. 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 agrees and accepts Patient's stated name/ matches armband: Yes Consent form signed, dated, timed; matches correct patient, intended procedure and site: Yes Imaging: Pertinent imaging reviewed, correctly oriented and match to patient identifiers Supplies, devices and special equipment are available: yes Site/side marked: yes Risks discussed: Bleeding, pain and damage to surrounding structures Skin preparation: ChloraPrep Preparation: Patient was prepped and draped in the usual sterile fashion Sedation used: no Anesthesia method: Local infiltration Local anesthetic: Lidocaine 1% Indications: Pneumothorax Placement location: R lateral Scalpel size: 10 Tube size (Fr): 28 Dissection instrument: Nita clamp Ultrasound guidance: no Tension pneumothorax: no Tube connected to: Suction Drainage characteristics: Bloody (Initial gavin of air) Suture material: 0 silk Dressinx4 sterile gauze Post-insertion x-ray findings: tube in good position Patient tolerance of procedure: Tolerated well, no immediate complications Bella Mckeon MD IN CLINIC/BEDSIDE ORDERABLES Final Result * Nerve Block (03/02/2025 11:49 PM CDT) Narrative Kajal Hebert MD - 03/02/2025 11:49 PM CDT Kajal Hebert MD 03/03/2025 3:18 PM Nerve Block Date/Time: 03/02/2025 11:49 PM Performed by: Myron Ruth MD Authorized by: Bella Mckeon MD [place] Protocol: RN Notified of Procedure: yes Informed consent: Risks, benefits, alternatives discussed Patient's stated name/ matches armband: Yes Allergies confirmed: yes Consent form signed, dated, timed; matches correct patient, intended procedure and site: Yes Imaging: Pertinent imaging reviewed, correctly oriented and match to patient identifiers Lab/Diag test results: Pertinent lab/diag tests reviewed and match to patient identifiers Supplies, devices and special equipment are available: yes Site/side marked: yes Immediately prior to the procedure a time out was called: a verbal verification by the procedure participants confirmed correct patient identity, correct site/side marked and visible (if applicable); agreement on procedure to be done; and correct patient positioning Indications: Indications: Procedural anesthesia Location: Body area: Trunk Trunk nerve: Serratus plane Laterality: Right Pre-procedure details: Skin preparation: 2% chlorhexidine Skin anesthesia (see MAR for exact dosages): Skin anesthesia method: None Procedure details (see MAR for exact dosages): Block needle gauge: 20 G Guidance: ultrasound Anesthetic injected: Bupivacaine 0.5% Anesthetic mL's injected: 20 Additive injected: Normal saline Additive mLs injected: 20 Injection procedure: Anatomic landmarks identified, anatomic landmarks palpated, incremental injection, introduced needle and negative aspiration for blood Post-procedure details: Dressing: None Outcome: Pain relieved Patient tolerance of procedure: Tolerated well, no immediate complications us Bella Mckeon MD IN CLINIC/BEDSIDE ORDERABLES Final Result * POCUS GUIDED NEEDLE PLACEMENT (03/02/2025 11:44 PM CDT) Anatomical Region Laterality Modality Other 03/02/2025 11:2 9 PM CDT Narrative 03/09/2025 10:19 PM CDT Performed by: Myron Ruth Procedural guidance: Exam Information: Exam type: Diagnostic Procedure type: Nerve block See procedure note in Epic Electronically signed by Myron Ruth on Sunday, March 02, 2025 at 11:49 PM I have reviewed the images & the resident's interpretation. I agree with the findings. Images on file. Electronically signed by Kajal Hebert on Sunday, March 09, 2025 at 10:19 PM I have reviewed the images & the resident's interpretation. I agree with the findings. Images on file. Procedure Note Kajal Hebert MD - 03/09/2025 Performed by: Myron Ruth Procedural guidance: Exam Information: Exam type: Diagnostic Procedure type: Nerve block See procedure note in Epic Electronically signed by Myron Ruth on March 02t 11:49 PM I have reviewed the images & the resident's interpretation. I agree withthe findings. Images on file. Electronically signed by Kajal Hebert on Sunday, March 09, 2025 at10:19 PM I have reviewed the images & the resident's interpretation. I agree withthe findings. Images on file. us Kajal Hebert MD POCUS ORDERABLES Final Resu lt * Hemoglobin and hematocrit (03/02/2025 11:35 PM CDT) Hgb 12.1 11.9 - 15.5 g/dL Hct 36.2 35.6 - 45.5 % [facility] Blood 03/02/2025 11:3 5 PM CDT 03/02/2025 11:43 PM CDT us Teodoro Mckeon MD LAB BLOOD ORDERABLES F inal Result [facility] Department [place] [address] * XR Chest 1 View (03/02/2025 10:32 PM CDT) Anatomical Region Laterality Modality Body, Chest N/A Computed Radiogr aphy 03/03/2025 1:24 AM CDT Impressions 03/03/2025 12:59 PM CDT Comparison is made to CT chest abdomen pelvis 03/02/2025 8:05 PM. Normal cardiomediastinal silhouette. Suture material projects over the mid right midlung, likely corresponds to prior wedge resection. There is a small moderate right pneumothorax, similar in size when correlated to recent CT. The trace hemothorax is better appreciated on the prior CT. No pulmonary consolidation, no left pleural effusion or pneumothorax. Multiple right-sided rib fractures, which are also better appreciated on prior CT. Dictated by: Rebeca Camargo MD The radiology attending physician has personally reviewed this study, and had reviewed and/or edited this written report and agrees with it. Electronically signed by: Boogie Lewis M.D. Narrative 03/03/2025 12:59 PM CDT EXAMINATION: 1 view chest radiograph Procedure Note Boogie Lewis MD - 03/03/2025 EXAMINATION: 1 view chest radiograph IMPRESSION: Comparison is made to CT chest abdomen pelvis 03/02/2025 8:05 PM. Normal cardiomediastinal silhouette. Suture material projects over the mid right midlung, likely corresponds to prior wedge resection. There is a small moderate right pneumothorax, similar in size when correlated to recent CT. The trace hemothorax is better appreciated on the prior CT. No pulmonary consolidation, no left pleural effusion or pneumothorax. Multiple right-sided rib fractures, which are also better appreciated on prior CT. Dictated by: Rebeca Camargo MD The radiology attending physician has personally reviewed this study, and had reviewed and/or edited this written report and agrees with it. Electronically signed by: Boogie Lewis M.D. Mariam Gipson MD IMG XR PROCEDURES Fin al Result * (ABNORMAL) Troponin I high-sensitivity 2-hour (03/02/2025 8:56 PM CDT) Trop I hs 18(H) <=17 ng/L Comment: Reviewed. Interpretive Data For further hscTnI resources including the diagnostic algorithm and an aid in interpretation, copy and paste this link: https://bjhlab.testcatalog.org/show/[email or web address] Current Interpretive Data last revised 2019. Trop I hs delta 13(C) ng/L [facility] Trop I hs interp Significa nt(C) [facility] Blood 03/02/2025 8:56 PM CDT 03/02/2025 9:08 PM CDT Mariam Gipson MD LAB BLOOD ORDERABLES Final Result [facility] Department [place] [address] * Critical result callback Cardio chemistry (03/02/2025 8:56 PM CDT) Date Notified 20250302 Time Notified [address] [facility] Test name Trop I hs 2hr i [facility] Called/Read Back Bella FATIMANeo Credentials MD [facility] Called By [facility] Blood 03/02/2025 8:56 PM CDT 03/02/2025 9:08 PM CDT us Mariam Gipson MD LAB BLOOD ORDERABLES Final Result Performing Organization Address City/[facility]/ZIP Co de Phone Number [facility] [employer] [place] [place] [place] [address] * Critical result callback Cardio chemistry (03/02/2025 8:56 PM CDT) Date Notified 20250302 Time Notified [address] [facility] Test name Trop I hs 2hr d [facility] Called/Read Back Bella ALBERT [facility] Credentials MD ALBERT [facility] Called By [facility] Blood 03/02/2025 8:56 PM CDT 03/02/2025 9:08 PM CDT us Mariam Gipson MD LAB BLOOD ORDERABLES Final Result Performing Organization Address City/[facility]/[place] [address] * Check Sample (03/02/2025 8:56 PM CDT) ABO Rh A Negative [facility] OTHER 03/02/2025 8:56 PM CDT 03/02/2025 9:07 PM CDT us Bella Mckeon MD LAB BLOOD ORDERABLES Final R esult Performing Organization Address City/[facility]/ZIP Co de Phone Number [facility] [employer] [place] [place] [address] [facility] * CT Recon Thoracic and Lumbar Spine W Contrast (C) (03/02/2025 8:10 PM CDT) Anatomical Region Laterality Modality Spine N/A Computed Tomogra phy 03/02/2025 9:09 PM CDT Impressions 03/03/2025 8:43 AM CDT 1. No acute intracranial hemorrhage, mass effect, or large territorial infarct. 2. Partially imaged hemopneumothorax and multiple right-sided rib fractures better evaluated on contemporaneous body CT. 3. Acute fracture of the left transverse process of T1 in the right transverse processes of T3, T5, T7, and T9. 4. Age-indeterminate compression deformities of T6 and T7 vertebral bodies, favored to be chronic. 5. No evidence of acute fracture in the cervical, or lumbar spine. Dictated by: Srikanth Valerio MD, PHD The radiology attending physician has personally reviewed this study, and had reviewed and/or edited this written report and agrees with it. Electronically signed by: Mk Rutledge M.D. Narrative 03/03/2025 8:43 AM CDT EXAMINATION: 1. CT head without contrast 2. CT of the cervical spine without contrast 3. CT of the thoracic spine with contrast 4. CT of the lumbar spine with contrast HISTORY: Fall down stairs. Posterior scalp wound. TECHNIQUE: CT of the head was performed with images acquired from skull base to vertex without intravenous contrast. CT of the cervical spine was performed according to the standard protocol without intravenous contrast. Dedicated reconstructions of the thoracic and lumbar spine were generated using data from a CT of the chest, abdomen, and pelvis acquired with intravenous contrast according to standard protocol. COMPARISON: PET/CT dated 12/10/[address] of the body FINDINGS: HEAD: There is bruising and laceration over the right posterior aspect of the scalp. There is no acute intracranial hemorrhage. Ventricles are of normal size and morphology. No mass effect or midline shift is present. The blackburn-white matter differentiation is normal. The visualized portions of the orbits are normal. The visualized portions of the mastoids are normal. The visualized portions of the paranasal sinuses are normal. No fractures are identified. CERVICAL SPINE: There is straightening of usual cervical lordosis. There is no acute fracture. Vertebral bodies are normal in height without compression fractures. Multilevel degenerative disc disease most notable at C4-C5. The craniocervical junction is normal. Limited views of the skull base appear normal. The sphenoid sinus is well aerated. No soft tissue abnormality is identified. Multilevel facet and uncovertebral arthropathy resulting in up to severe neural foraminal stenosis on the left at C4-C5. There is a posterior disc osteophyte complex resulting in severe spinal canal stenosis at C4-C5. THORACIC SPINE: There are multiple partially imaged right-sided rib fractures involving at least the right 1st, 2nd, and 4th through 9th ribs. Partially imaged right-sided pneumothorax better evaluated on separately dictated contemporaneous body CT. There is an acute fracture of the left transverse process of T1, the right transverse process of T3 and T5, T7 and T9. There are 12 rib-bearing thoracic vertebra. There is exaggeration of usual thoracic kyphosis centered at T6. There is age indeterminate compression deformity of T6 and T7, favored to be chronic. Multilevel degenerative disc disease most notable at T5 and T7. The thoracic aorta is normal. Multilevel degenerative disc height loss most notable from C5 through C7. Multilevel facet arthropathy without high-grade neural foraminal stenosis. No levels of high-grade spinal canal stenosis. LUMBAR SPINE: Mild dextroscoliosis. There is no acute fracture. The vertebral bodies are normal in height without compression fractures. Multilevel degenerative height loss most notable at L2-L3. There are erosive changes at the L2-L3 disc space with a lateral disc osteophyte. There is no soft tissue abnormality. There is moderate calcific atherosclerosis of abdominal aorta. Multilevel facet arthropathy without high-grade spinal canal or neural foraminal stenosis. Procedure Note Mk Rutledge MD - 03/03/2025 EXAMINATION: 1. CT head without contrast 2. CT of the cervical spine without contrast 3. CT of the thoracic spine with contrast 4. CT of the lumbar spine with contrast HISTORY: Fall down stairs. Posterior scalp wound. TECHNIQUE: CT of the head was performed with images acquired from skull base to vertex without intravenous contrast. CT of the cervical spine was performed according to the standard protocol without intravenous contrast. Dedicated reconstructions of the thoracic and lumbar spine were generated using data from a CT of the chest, abdomen, and pelvis acquired with intravenous contrast according to standard protocol. COMPARISON: PET/CT dated 12/10/[address] of the body FINDINGS: HEAD: There is bruising and laceration over the right posterior aspect of the scalp. There is no acute intracranial hemorrhage. Ventricles are of normal size and morphology. No mass effect or midline shift is present. The blackburn-white matter differentiation is normal. The visualized portions of the orbits are normal. The visualized portions of the mastoids are normal. The visualized portions of the paranasal sinuses are normal. No fractures are identified. CERVICAL SPINE: There is straightening of usual cervical lordosis. There is no acute fracture. Vertebral bodies are normal in height without compression fractures. Multilevel degenerative disc disease most notable at C4-C5. The craniocervical junction is normal. Limited views of the skull base appear normal. The sphenoid sinus is well aerated. No soft tissue abnormality is identified. Multilevel facet and uncovertebral arthropathy resulting in up to severe neural foraminal stenosis on the left at C4-C5. There is a posterior disc osteophyte complex resulting in severe spinal canal stenosis at C4-C5. THORACIC SPINE: There are multiple partially imaged right-sided rib fractures involving at least the right 1st, 2nd, and 4th through 9th ribs. Partially imaged right-sided pneumothorax better evaluated on separately dictated contemporaneous body CT. There is an acute fracture of the left transverse process of T1, the right transverse process of T3 and T5, T7 and T9. There are 12 rib-bearing thoracic vertebra. There is exaggeration of usual thoracic kyphosis centered at T6. There is age indeterminate compression deformity of T6 and T7, favored to be chronic. Multilevel degenerative disc disease most notable at T5 and T7. The thoracic aorta is normal. Multilevel degenerative disc height loss most notable from C5 through C7. Multilevel facet arthropathy without high-grade neural foraminal stenosis. No levels of high-grade spinal canal stenosis. LUMBAR SPINE: Mild dextroscoliosis. There is no acute fracture. The vertebral bodies are normal in height without compression fractures. Multilevel degenerative height loss most notable at L2-L3. There are erosive changes at the L2-L3 disc space with a lateral disc osteophyte. There is no soft tissue abnormality. There is moderate calcific atherosclerosis of abdominal aorta. Multilevel facet arthropathy without high-grade spinal canal or neural foraminal stenosis. IMPRESSION: 1. No acute intracranial hemorrhage, mass effect, or large territorial infarct. 2. Partially imaged hemopneumothorax and multiple right-sided rib fractures better evaluated on contemporaneous body CT. 3. Acute fracture of the left transverse process of T1 in the right transverse processes of T3, T5, T7, and T9. 4. Age-indeterminate compression deformities of T6 and T7 vertebral bodies, favored to be chronic. 5. No evidence of acute fracture in the cervical, or lumbar spine. Dictated by: Srikanth Valerio MD, PHD The radiology attending physician has personally reviewed this study, and had reviewed and/or edited this written report and agrees with it. Electronically signed by: Mk Rutledge M.D. Mariam Frank Gipson MD IM CT PROCEDURES Fin al Result * CT Head and Cervical Spine WO Contrast (03/02/2025 8:10 PM CDT) Anatomical Region Laterality Modality Head and Neck N/A Computed Tomogra phy 03/02/2025 9:09 PM CDT Impressions 03/03/2025 8:43 AM CDT 1. No acute intracranial hemorrhage, mass effect, or large territorial infarct. 2. Partially imaged hemopneumothorax and multiple right-sided rib fractures better evaluated on contemporaneous body CT. 3. Acute fracture of the left transverse process of T1 in the right transverse processes of T3, T5, T7, and T9. 4. Age-indeterminate compression deformities of T6 and T7 vertebral bodies, favored to be chronic. 5. No evidence of acute fracture in the cervical, or lumbar spine. Dictated by: Srikanth Valerio MD, PHD The radiology attending physician has personally reviewed this study, and had reviewed and/or edited this written report and agrees with it. Electronically signed by: Mk Rutledge M.D. Narrative 03/03/2025 8:43 AM CDT EXAMINATION: 1. CT head without contrast 2. CT of the cervical spine without contrast 3. CT of the thoracic spine with contrast 4. CT of the lumbar spine with contrast HISTORY: Fall down stairs. Posterior scalp wound. TECHNIQUE: CT of the head was performed with images acquired from skull base to vertex without intravenous contrast. CT of the cervical spine was performed according to the standard protocol without intravenous contrast. Dedicated reconstructions of the thoracic and lumbar spine were generated using data from a CT of the chest, abdomen, and pelvis acquired with intravenous contrast according to standard protocol. COMPARISON: PET/CT dated 12/10/[address] of the body FINDINGS: HEAD: There is bruising and laceration over the right posterior aspect of the scalp. There is no acute intracranial hemorrhage. Ventricles are of normal size and morphology. No mass effect or midline shift is present. The blackburn-white matter differentiation is normal. The visualized portions of the orbits are normal. The visualized portions of the mastoids are normal. The visualized portions of the paranasal sinuses are normal. No fractures are identified. CERVICAL SPINE: There is straightening of usual cervical lordosis. There is no acute fracture. Vertebral bodies are normal in height without compression fractures. Multilevel degenerative disc disease most notable at C4-C5. The craniocervical junction is normal. Limited views of the skull base appear normal. The sphenoid sinus is well aerated. No soft tissue abnormality is identified. Multilevel facet and uncovertebral arthropathy resulting in up to severe neural foraminal stenosis on the left at C4-C5. There is a posterior disc osteophyte complex resulting in severe spinal canal stenosis at C4-C5. THORACIC SPINE: There are multiple partially imaged right-sided rib fractures involving at least the right 1st, 2nd, and 4th through 9th ribs. Partially imaged right-sided pneumothorax better evaluated on separately dictated contemporaneous body CT. There is an acute fracture of the left transverse process of T1, the right transverse process of T3 and T5, T7 and T9. There are 12 rib-bearing thoracic vertebra. There is exaggeration of usual thoracic kyphosis centered at T6. There is age indeterminate compression deformity of T6 and T7, favored to be chronic. Multilevel degenerative disc disease most notable at T5 and T7. The thoracic aorta is normal. Multilevel degenerative disc height loss most notable from C5 through C7. Multilevel facet arthropathy without high-grade neural foraminal stenosis. No levels of high-grade spinal canal stenosis. LUMBAR SPINE: Mild dextroscoliosis. There is no acute fracture. The vertebral bodies are normal in height without compression fractures. Multilevel degenerative height loss most notable at L2-L3. There are erosive changes at the L2-L3 disc space with a lateral disc osteophyte. There is no soft tissue abnormality. There is moderate calcific atherosclerosis of abdominal aorta. Multilevel facet arthropathy without high-grade spinal canal or neural foraminal stenosis. Procedure Note Mk Rutledge MD - 03/03/2025 EXAMINATION: 1. CT head without contrast 2. CT of the cervical spine without contrast 3. CT of the thoracic spine with contrast 4. CT of the lumbar spine with contrast HISTORY: Fall down stairs. Posterior scalp wound. TECHNIQUE: CT of the head was performed with images acquired from skull base to vertex without intravenous contrast. CT of the cervical spine was performed according to the standard protocol without intravenous contrast. Dedicated reconstructions of the thoracic and lumbar spine were generated using data from a CT of the chest, abdomen, and pelvis acquired with intravenous contrast according to standard protocol. COMPARISON: PET/CT dated 12/10/[address] of the body FINDINGS: HEAD: There is bruising and laceration over the right posterior aspect of the scalp. There is no acute intracranial hemorrhage. Ventricles are of normal size and morphology. No mass effect or midline shift is present. The blackburn-white matter differentiation is normal. The visualized portions of the orbits are normal. The visualized portions of the mastoids are normal. The visualized portions of the paranasal sinuses are normal. No fractures are identified. CERVICAL SPINE: There is straightening of usual cervical lordosis. There is no acute fracture. Vertebral bodies are normal in height without compression fractures. Multilevel degenerative disc disease most notable at C4-C5. The craniocervical junction is normal. Limited views of the skull base appear normal. The sphenoid sinus is well aerated. No soft tissue abnormality is identified. Multilevel facet and uncovertebral arthropathy resulting in up to severe neural foraminal stenosis on the left at C4-C5. There is a posterior disc osteophyte complex resulting in severe spinal canal stenosis at C4-C5. THORACIC SPINE: There are multiple partially imaged right-sided rib fractures involving at least the right 1st, 2nd, and 4th through 9th ribs. Partially imaged right-sided pneumothorax better evaluated on separately dictated contemporaneous body CT. There is an acute fracture of the left transverse process of T1, the right transverse process of T3 and T5, T7 and T9. There are 12 rib-bearing thoracic vertebra. There is exaggeration of usual thoracic kyphosis centered at T6. There is age indeterminate compression deformity of T6 and T7, favored to be chronic. Multilevel degenerative disc disease most notable at T5 and T7. The thoracic aorta is normal. Multilevel degenerative disc height loss most notable from C5 through C7. Multilevel facet arthropathy without high-grade neural foraminal stenosis. No levels of high-grade spinal canal stenosis. LUMBAR SPINE: Mild dextroscoliosis. There is no acute fracture. The vertebral bodies are normal in height without compression fractures. Multilevel degenerative height loss most notable at L2-L3. There are erosive changes at the L2-L3 disc space with a lateral disc osteophyte. There is no soft tissue abnormality. There is moderate calcific atherosclerosis of abdominal aorta. Multilevel facet arthropathy without high-grade spinal canal or neural foraminal stenosis. IMPRESSION: 1. No acute intracranial hemorrhage, mass effect, or large territorial infarct. 2. Partially imaged hemopneumothorax and multiple right-sided rib fractures better evaluated on contemporaneous body CT. 3. Acute fracture of the left transverse process of T1 in the right transverse processes of T3, T5, T7, and T9. 4. Age-indeterminate compression deformities of T6 and T7 vertebral bodies, favored to be chronic. 5. No evidence of acute fracture in the cervical, or lumbar spine. Dictated by: Srikanth Valerio MD, PHD The radiology attending physician has personally reviewed this study, and had reviewed and/or edited this written report and agrees with it. Electronically signed by: Mk Rutledge M.D. Mariam Frank Gipson MD IMG CT PROCEDURES Fin al Result * CT Chest Abdomen Pelvis W Contrast (03/02/2025 8:10 PM CDT) Anatomical Region Laterality Modality Body N/A Computed Tomogra phy 03/02/2025 8:42 PM CDT Impressions 03/03/2025 12:58 PM CDT 1. Multiple right sided rib fractures detailed above with small moderate right hemopneumothorax, moderate gas component and trace blood products along the fractures. 2. Nondisplaced left T1, right T3, T5, T7 and T9 transverse process fractures. 3. Soft tissue hematoma extending along the right gluteal musculature and right posterior lateral thigh, incompletely imaged but measuring at least up to 15 cm in craniocaudal extent, with focus of high attenuation along the inferior aspect suggesting acute blood products/active extravasation. The Critical results were discussed with Dr. Gipson by Dr. Rebeca Camargo MD on 03/02/2025 8:25 PM. Dictated by: Rebeca Camargo MD The radiology attending physician has personally reviewed this study, and had reviewed and/or edited this written report and agrees with it. Electronically signed by: Boogie Lewis M.D. Narrative 03/03/2025 12:58 PM CDT EXAMINATION: Computed tomography of the chest, abdomen and pelvis with intravenous contrast HISTORY: 64-year-old female presenting after fall TECHNIQUE: Transaxial computed tomographic images of the chest, abdomen and pelvis were obtained with intravenous contrast according to the standard protocol after the administration of 69 mL Opti-Ray 350 intravenous contrast. COMPARISON: CT chest abdomen and pelvis 12/10/2023 FINDINGS: Chest: There is no thoracic lymphadenopathy. Normal caliber thoracic aorta and main pulmonary artery. Heart size is normal, trace pericardial fluid. Multivessel coronary artery disease. Normal thyroid. Nondistended esophagus. Central airways widely patent. There is a small moderate volume right pneumothorax with trace pleural fluid along the posterior right hemithorax, with nondisplaced rib fractures of the posterior right 1st and 2nd ribs, minimally displaced fracture of right posterior 4th and 6th-9th ribs and possible additional nondisplaced fracture of the right posterior lateral 5th rib. No left rib fractures. Abdomen/Pelvis: No focal hepatic lesion. Portal veins patent. Normal gallbladder, no biliary ductal dilatation. Normal spleen, pancreas, adrenal glands. Kidneys enhance symmetrically without hydronephrosis. Normal urinary bladder. Uterus is present without suspicious adnexal lesion. Small large bowel normal caliber. No obstruction. Mild colonic diverticulosis. No intraperitoneal free fluid or free air. No abdominal or pelvic lymphadenopathy. The abdominal aorta is normal in caliber with moderate atherosclerotic calcifications. There is a soft tissue hematoma along the right gluteal musculature extending inferiorly along the right posterior lateral thigh, lateral and inferior most edges excluded from the [id number] but measuring at least 7.8 x 5.8 x 14.6 cm, with focus of high attenuation along the inferior aspect of the imaged hematoma (series 3 image 309), suspicious for acute blood products. In addition to the multiple posterolateral right rib fractures difficult above, there are also nondisplaced fractures of the right transverse processes of T3, T5, T7 and T9, and left transverse process of T1. No additional fracture or suspicious osseous lesion. Procedure Note Boogie Lewis MD - 03/03/2025 EXAMINATION: Computed tomography of the chest, abdomen and pelvis with intravenous contrast HISTORY: 64-year-old female presenting after fall TECHNIQUE: Transaxial computed tomographic images of the chest, abdomen and pelvis were obtained with intravenous contrast according to the standard protocol after the administration of 69 mL Opti-Ray 350 intravenous contrast. COMPARISON: CT chest abdomen and pelvis 12/10/2023 FINDINGS: Chest: There is no thoracic lymphadenopathy. Normal caliber thoracic aorta and main pulmonary artery. Heart size is normal, trace pericardial fluid. Multivessel coronary artery disease. Normal thyroid. Nondistended esophagus. Central airways widely patent. There is a small moderate volume right pneumothorax with trace pleural fluid along the posterior right hemithorax, with nondisplaced rib fractures of the posterior right 1st and 2nd ribs, minimally displaced fracture of right posterior 4th and 6th-9th ribs and possible additional nondisplaced fracture of the right posterior lateral 5th rib. No left rib fractures. Abdomen/Pelvis: No focal hepatic lesion. Portal veins patent. Normal gallbladder, no biliary ductal dilatation. Normal spleen, pancreas, adrenal glands. Kidneys enhance symmetrically without hydronephrosis. Normal urinary bladder. Uterus is present without suspicious adnexal lesion. Small large bowel normal caliber. No obstruction. Mild colonic diverticulosis. No intraperitoneal free fluid or free air. No abdominal or pelvic lymphadenopathy. The abdominal aorta is normal in caliber with moderate atherosclerotic calcifications. There is a soft tissue hematoma along the right gluteal musculature extending inferiorly along the right posterior lateral thigh, lateral and inferior most edges excluded from the [id number] but measuring at least 7.8 x 5.8 x 14.6 cm, with focus of high attenuation along the inferior aspect of the imaged hematoma (series 3 image 309), suspicious for acute blood products. In addition to the multiple posterolateral right rib fractures difficult above, there are also nondisplaced fractures of the right transverse processes of T3, T5, T7 and T9, and left transverse process of T1. No additional fracture or suspicious osseous lesion. IMPRESSION: 1. Multiple right sided rib fractures detailed above with small moderate right hemopneumothorax, moderate gas component and trace blood products along the fractures. 2. Nondisplaced left T1, right T3, T5, T7 and T9 transverse process fractures. 3. Soft tissue hematoma extending along the right gluteal musculature and right posterior lateral thigh, incompletely imaged but measuring at least up to 15 cm in craniocaudal extent, with focus of high attenuation along the inferior aspect suggesting acute blood products/active extravasation. The Critical results were discussed with Dr. Gipson by Dr. Rebeca Camargo MD on 03/02/2025 8:25 PM. Dictated by: Rebeca Camargo MD The radiology attending physician has personally reviewed this study, and had reviewed and/or edited this written report and agrees with it. Electronically signed by: Boogie Lewis M.D. Result [facility] Mariam Gipson MD IMG CT PROCEDURES Fin al Result * (ABNORMAL) ECG 12-LEAD (03/02/2025 7:15 PM CDT) Narrative [facility] - 03/02/2025 7:15 PM CDT Bella Mckeon MD 03/02/2025 7:16 PM ECG 12 lead Date/Time: 03/02/2025 7:15 PM Performed by: Bella Mckeon MD Authorized by: Bella Mckeon MD Rate: ECG rate: 101 ECG rate assessment: tachycardic Rhythm: Rhythm: sinus rhythm Ectopy: Ectopy: none QRS: QRS axis: Right QRS intervals: Normal Conduction: Conduction: normal T waves: T waves: normal Q waves: Q waves: V2 Previous ECG: Previous ECG: Compared to current Date of previous EC12/10/2023 Similarity: No change Interpretation: Interpretation: abnormal Recommended Follow-up: Recommended follow up: further workup in the ED Result [facility] Bella Mckeon MD ECG ORDERABLES Final Result [facility] * POCT creatinine (03/02/2025 6:57 PM CDT) Creatinine POC 0.9 0.6 - 1.1 mg/dL Blood 03/02/2025 6:57 PM CDT 03/02/2025 6:57 PM CDT Result [facility] Bella Mckeon MD LAB POCT ORDERABLES - DEVICE Final Result Performing Organization Address City/[facility] Co de Phone Number [facility] Department [place] [address] * Troponin I high-sensitivity series (baseline, 2hr, 4hr, 6hr) (03/02/2025 6:53 PM CDT) Trop I hs 5 <=17 ng/L Comment: Interpretive Data For further hscTnI resources including the diagnostic algorithm and an aid in interpretation, copy and paste this link: [email or web address] Current Interpretive Data last revised 2019. Blood 03/02/2025 6:53 PM CDT 03/02/2025 7:12 PM CDT Result [facility] Frank Gipson MD LAB BLOOD ORDERABLES Final Result Performing Organization Address [facility] de Phone Number [facility] Department [place] [address] * eGFR (03/02/2025 6:53 PM CDT) eGFR >90 >=60 mL/min/1. 73 m2 Comment: Interpretive Data Reference Interval Normal >/= 90 mL/min/1.73m2 Mildly decreased* 60 - 89 mL/min/1.73m2 Mildly to moderately decreased 45 - 59 mL/min/1.73m2 Moderately to severely decreased 30 - 44 mL/min/1.73m2 Severely decreased 15 - 29 mL/min/1.73m2 Kidney Failure < 15 mL/min/1.73m2 *Relative to young adult level Estimated glomerular filtration rate is determined by the 2020 CKD-EPI equation recommended by the National Kid[employer] (A Unifying Approach to GFR Estimation: Recommendations of the NKF-ASK Task Force on Reassessing the Inclusion of Race in Diagnosing Kidney Disease, JASN 2020). The CKD-EPI equation should not be used for patients with unstable renal function and has not been validated in children and those over 70. Current interpretive data was last reviewed 2021. Blood 03/02/2025 6:53 PM CDT 03/02/2025 8:29 PM CDT Mariam Frank Gipson MD LAB BLOOD ORDERABLES Final Result [facility] Department [place] [address] * (ABNORMAL) Differential, auto (03/02/2025 6:53 PM CDT) Neutrophil abs 17.21(H) 1.50 - 6.50 K/cumm Imm gran abs 0.25(H) 0.00 - 0.10 K/cumm [facility] Lymphocyte abs 4.25(H) 0.80 - 3.30 K/cumm [facility] Monocyte abs 1.10(H) 0.20 - 0.80 K/cumm [facility] Eosinophil abs 0.18 0.00 - 0.50 K/cumm [facility] Basophil abs 0.16(H) 0.00 - 0.10 K/cumm [facility] Neutrophil pct 74.2 % [facility] Comment: Interpretive Data Percent cell count reference ranges are not reported, since discordance with absolute values may lead to misinterpretation of CBC data. Current Interpretive Data was last revised on 2017. Imm gran pct 1.1 % [facility] Comment: Interpretive Data Percent cell count reference ranges are not reported, since discordance with absolute values may lead to misinterpretation of CBC data. Current Interpretive Data was last revised on 2017. Lymphocyte pct 18.4 % [facility] Comment: Interpretive Data Percent cell count reference ranges are not reported, since discordance with absolute values may lead to misinterpretation of CBC data. Current Interpretive Data was last revised on 2017. Monocyte pct 4.8 % [facility] Comment: Interpretive Data Percent cell count reference ranges are not reported, since discordance with absolute values may lead to misinterpretation of CBC data. Current Interpretive Data was last revised on 2017. Eosinophil pct 0.8 % [facility] Comment: Interpretive Data Percent cell count reference ranges are not reported, since discordance with absolute values may lead to misinterpretation of CBC data. Current Interpretive Data was last revised on 2017. Basophil pct 0.7 % [facility] Comment: Interpretive Data Percent cell count reference ranges are not reported, since discordance with absolute values may lead to misinterpretation of CBC data. Current Interpretive Data was last revised on 2017. Blood 03/02/2025 6:53 PM CDT 03/02/2025 7:13 PM CDT us Mariam Gipson MD LAB BLOOD ORDERABLES Final Result [facility] Department [place] [address] * (ABNORMAL) CBC with auto differential (03/02/2025 6:53 PM CDT) WBC 23.15(H) 3.80 - 9.90 K/cumm Hgb 12.3 11.9 - 15.5 g/dL [facility] Hct 37.4 35.6 - 45.5 % [facility] Plt 305 150 - 400 K/cumm [facility] MPV 10.0 9.1 - 12.3 fL [facility] RBC 4.13 3.90 - 5.20 M/cumm [facility] MCV 90.6 81.3 - 96.4 fL [facility] MCH 29.8 27.1 - 33.3 pg [facility] MCHC 32.9 32.3 - 35.7 g/dL [facility] [facility] RDW CV 14.0 11.1 - 14.9 % [facility] RDW SD 46.2 35.7 - 48.1 fL [facility] NRBC abs 0.00 0.00 - 0.01 K/cumm [facility] Blood 03/02/2025 6:53 PM CDT 03/02/2025 7:13 PM CDT Mariam Gipson MD LAB BLOOD ORDERABLES Final Result Performing Organization Address [facility] Co de Phone Number [facility] - [employer] [place] [place] [address] * aPTT (03/02/2025 6:53 PM CDT) aPTT 26 26 - 38 sec Comment: Interpretive Data Heparin therapeutic range: 66.0 - 100.0 seconds. Range based on correlation with therapeutic heparin activity range of 0.3 - 0.7 Units/mL. Current interpretive data was last revised on 2023. Blood 03/02/2025 6:53 PM CDT 03/02/2025 7:05 PM CDT Mariam Gipson MD LAB BLOOD ORDERABLES Final Result Performing Organization Address [facility] [place] [address] * Protime-INR (03/02/2025 6:53 PM CDT) PT 11.4 10.2 - 13.5 sec INR 1.01 0.90 - 1.20 [facility] Comment: Interpretive data Oral anticoagulant therapeutic ranges: Venous thromboembolism prophylaxis or treatment: 2.0-3.0 CARDIOLOGY Standard range: 2.0-3.0 High-intensity range: 2.5-3.5 Refer to indication-specific guidelines for appropriate target ranges for prosthetic heart valve replacement. Current interpretive data was last revised on 2019. Blood 03/02/2025 6:53 PM CDT 03/02/2025 7:05 PM CDT Mariam Gipson MD LAB BLOOD ORDERABLES Final Result Performing Organization Address [facility] Co de Phone Number [facility] - [employer] [place] [place] [address] * Type and screen (03/02/2025 6:53 PM CDT) ABO Rh A Negative [place], indirect Negative [facility] Blood 03/02/2025 6:53 PM CDT 03/02/2025 7:22 PM CDT Narrative [facility] - 03/02/2025 9:13 PM CDT Has the patient had Daratumumab or Isatuximab in the past 6 months?->Unknown Mariam Gipson MD LAB BLOOD BANK TEST O RDERABLES Final Result Performing Organization Address [facility]/ZIP Co de Phone Number [facility] - [employer] [place] [place] [address] * Lipase (03/02/2025 6:53 PM CDT) Lipase 35 10 - 99 Units/L Blood 03/02/2025 6:53 PM CDT 03/02/2025 8:29 PM CDT Result [facility] Mariam Gipson MD LAB BLOOD ORDERABLES Final Result Performing Organization Address [facility] Co de Phone Number [facility] - [employer] [place] [place] [address] * (ABNORMAL) Ethanol (03/02/2025 6:53 PM CDT) Ethanol 165(H) <=10 mg/dL Comment: Interpretive Data Legal limit of intoxication > or = 80 mg/dL Levels > or = 400 mg/dL are potentially TOXIC. Current interpretive data was last revised on 2018. Blood 03/02/2025 6:53 PM CDT 03/02/2025 8:29 PM CDT Mariam Gipson MD LAB BLOOD ORDERABLES Final Result Performing Organization Address [facility]/ZIP Co de Phone Number [facility] - [employer] [place] [place] [address] * (ABNORMAL) Comprehensive metabolic panel (03/02/2025 6:53 PM CDT) Sodium 129(L) 135 - 145 mmol/L Potassium, pl 3.7 3.3 - 4.9 mmol/L [facility] Chloride 93(L) 97 - 110 mmol/L [facility] CO2 27 22 - 32 mmol/L [facility] Anion gap 9 2 - 15 mmol/L [facility] BUN 13 6 - 25 mg/dL [facility] Creatinine 0.57(L) 0.60 - 1.10 mg/dL [facility] Glucose 123 70 - 199 mg/dL [facility] Comment: Interpretive Data Fasting glucose >/= 126 mg/dl is diagnostic for diabetes. Fasting is defined as no caloric intake for at least 8 hours. Fasting glucose between 100 mg/dl to 125 mg/dl is diagnostic of prediabetes. In a patient with classic symptoms of hyperglycemia or hyperglycemic crisis, a random glucose >/= 200 mg/dl is diagnostic for diabetes. In the absence of unequivocal hyperglycemia, results should be confirmed by repeat testing. The classification and Diagnosis of Diabetes Diabetes Care 202; 46: S19-S40. Current interpretive data was last revised 2022. Calcium 8.7 8.5 - 10.3 mg/dL [facility] Bilirubin, total 0.4 0.1 - 1.2 mg/dL [facility] Protein, pl 7.3 6.5 - 8.5 g/dL [facility] Albumin 4.1 3.5 - 5.0 g/dL [facility] Alk phos 156(H) 40 - 130 Units/L [facility] ALT 44 7 - 45 Units/L [facility] AST 72(H) 10 - 45 Units/L [facility] Blood 03/02/2025 6:53 PM CDT 03/02/2025 8:29 PM CDT Mariam Gipson MD LAB BLOOD ORDERABLES Final Result [facility] [place] [address] * MS CRITICAL CARE ILL/INJURED PATIENT INIT 30-74 MIN (03/02/2025 11:55 AM CDT) Narrative Bella Mckeon MD - 03/02/2025 11:55 AM CDT Bella Mckeon MD 03/18/2025 8:25 AM Critical Care Performed by: Bella Mckeon MD Authorized by: Bella Mckeon MD Critical care provider statement: As reflected in the history, physical exam, orders, notes, and/or MDM, I was personally present while the patient was critically ill and provided critical care services for 35 minutes, excluding time involved in separately billable procedures. Critical care was necessary to treat or prevent imminent or life-threatening deterioration of the following condition(s): hemo/pneumothorax, multiple rib fractures and severe traumatic condition Critical care was time spent by me providing the following: continuous telemetry, continuous pulse oximetry and serial bedside patient exams Trauma Surgery consultation spinal immobilization I provided emergent necessary critical care medicine services to this patient. I ordered and reviewed test results and/or imaging studies. I spent time discussing the management of this critically ill patient with consultants and the medical staff. I spent time discussing the management and therapeutic options for this critically ill patient with the patient themselves or with the appropriate designated surrogate decision-maker. I spent time documenting in the medical record. us Bella Mckeon MD IN CLINIC/BEDSIDE ORDERABLES Final Result from Last 3 Months Insurance T MEDICARE AET MEDICARE Advance Directives For more information, please contact: [phone] * Full Code (Latest Code Status on File) Date Activated Date Inactivated Comments 03/03/2025 3:18 AM 03/11/2025 4:11 PM * Full Code Date Activated Date Inactivated Comments 12/11/2023 4:53 AM 12/13/2023 9:45 PM Care Teams [place] Relationship Specialty Start Date End Date Dylan Mcwilliams MD [address] [place] [address] PCP - General Family Medicine 12/10/23
--- NOTE | 2025-05-18 18:00 | WPDPFTINT ---
PFT Procedure Performed PFT Procedure Performed Spirometry with Pre/Post Bronchodilator Plethysmography (Lung Vol) Diffusing Cap (DLCO) Flow Vol Loop PFT Interpretation DOS: 04/20/2025 REQUESTING: Alondra Nettles MD REASON FOR TESTING: COPD PULMONARY FUNCTION TESTS Results are reliable and reproducible. Repeatability of spirometry FEV1 maneuver pre and post bronchodilator is Grade A. Jer: GLI 2012 reference equations were used. Spirometry: The pre-bronchodilator FEV1 is 0.59 L, 27%. The pre-bronchodilator FVC is 1.84 L, 66%. The FEV1/FVC ratio is 32%, low, consistent with airflow obstruction. After bronchodilator, the FEV1 is 0.68 L, 31%, +14. After bronchodilator, the FVC is 2.01 L, 72%, +9. The FEV1/FVC ratio is 34%. Lung volumes: The total lung capacity is 5.49 L, 116%, normal. the functional reserve capacity is 4.70 L, 176%, elevated. The residual volume is 3.59 L, 182%, elevated consistent with air trapping. The RV/TLC is 65%, elevated. Airway resistance is elevated. Diffusion: DLCO is 6.7, 33%, severely reduced. The DLCO/VA is 2.16, 49%, moderately reduced. Flow volume loop: The flow volume loop shows coving the expiratory limb consistent with airflow obstruction. IMPRESSION: this study shows extremely severe obstructive ventilatory impairment without significant response to bronchodilator, moderate air trapping and severe diffusion impairment with partial correction for alveolar volume. Lack of response to bronchodilator should not preclude use if clinically indicated. There are no prior studies for comparison. Alondra Nettles MD
--- NOTE | 2025-05-18 18:07 | WPDSIXMINUTE ---
Six Minute Walk Procedure Procedure Performed Pulmonary Stress Test (6 min walk) Six Minute Walk Six Minute Walk: DATE OF SERVICE: 04/20/2025 REQUESTING: Alondra Nettles MD REASON FOR TESTING: dyspnea SIX MINUTE WALK This test was conducted per ATS guidelines. patient was on 2 L oxygen continuously for this study. The initial saturation was 97% on 2 L oxygen, and initial heart rate was 101 beats per minute. The patient walked without stopping, completing 213 m/700 ft. The saturation at the end of testing was 96% on 2 L, and the heart rate was 114 beats per minute. The Mukul score for fatigue and dyspnea was 1 initially, and 3 at the end of testing. IMPRESSION: This study shows no desaturation while wearing 2 L/minute. The patient did not require supplemental oxygen with exertion. Distance walked is less than anticipated for age. Alondra Nettles MD
== END 2025-04-20 07:56 | disposition home or self-care (01) ==
PROVIDERS: PCP Family Medicine; Visit Provider Internal Medicine Critical Care Medicine
DX: J44.9 Chronic obstructive pulmonary disease, unspecified (principal); R91.1 Solitary pulmonary nodule; J43.2 Centrilobular emphysema; S22.41XA Multiple fractures of ribs, right side, initial encounter for closed fracture; S22.068A Other fracture of T7-T8 thoracic vertebra, initial encounter for closed fracture; Z85.118 Personal history of other malignant neoplasm of bronchus and lung; X58.XXXA Exposure to other specified factors, initial encounter
CPT/HCPCS: 71250; 94060; 94618; 94726; 94729